=== PATIENT | female | born 1955 | race Caucasian/White ===

== ENCOUNTER 2024-09-18 14:18 | Inpatient (IN) | payer OTHER, SELFPAY ==
[2024-09-18] VITALS (41 sets, daily range): BP systolic 83–114; BP diastolic 52–75; BMI 21.4; BMI 20.9
--- NOTE | 2024-09-18 09:20 | ED.GENMED ---
History of Present Illness
General
Chief Complaint: Abdominal Symptoms
Source: patient and ambulance crew
Time Seen by Provider: 09/18/24 09:07
History of Present Illness
History of Present Illness:
69yoF with a history of prior CVA, hypertension, and hyperlipidemia presenting via EMS for evaluation of abdominal pain. Patient reports that she has not had a bowel movement in the past 3 days. She has taken MiraLAX and Metamucil without relief.
She is also having difficulty urinating and is only urinating in small amounts at a time. She endorses pain in her right lower quadrant/groin region. She also reports nausea and vomiting. She has been drinking but not eating much over the past
few days. She is also generally weak and fatigued. She denies any fevers, chest pain, shortness of breath. No previous abdominal surgeries. She has never had a colonoscopy before.
Phy Exam
Physical Exam
Physical Exam:
Chronically ill appearing, no acute distress noted
General Physical Exam
General Presentation: no apparent distress
General Skin: warm and dry
General Habitus: elderly
ENT Exam
ENT Exam: normocephalic
Cardiovascular Exam
Cardiovascular Exam: regular rate/rhythm and no murmur
Pulmonary Exam
Pulmonary Exam: no respiratory distress, no crackles, no wheezing and decreased breath sounds
Gastrointestinal Exam
Gastrointestinal Exam: soft, distended and other (Lower abdomen appears distended. Abdomen soft. +Tenderness in RLQ.)
Neurological Exam
Neurological Exam: alert
[place]avo Coma Scale
Eye Opening: Spontaneous
Verbal Response: Oriented
Motor Response: Obeys Commands
GCS Total Score: 15
Skin Exam
Skin Exam: normal color and warm/dry
Psychiatric Exam
Psychiatric Exam: normal mood/affect
Course
Orders/Labs/Results
Orders:
Orders
09/18/24 Breakfast
NPO
Allow oral meds: No
Allow clear liquids: No
09/18/24 09:18
Bladder Scan- Treatment ONCE
Iohexol [Omnipaque] See Protocol PO NOW STA
09/18/24 09:19
Electrocardiogram (*1) Urgent
Reason for Study: Fatigue / Weakness
EKG- Treatment ONCE
Urinalysis Reflex To Culture Urgent
CR Chest - 2 Views Urgent
Comment:
Reason For Exam: generalized weakness
09/18/24 09:25
D-Dimer Urgent
PTT Urgent
Comment: ADD
09/18/24 09:26
Complete Blood Count/With Diff Urgent
Comprehensive Metabolic Panel Urgent
Lipase Urgent
Magnesium Urgent
Manual Differential Urgent
Troponin I Urgent
09/18/24 09:30
0.9% Sodium Chloride 500 ml [Nss] 500 ml IV BOLUS
09/18/24 10:06
0.9% Sodium Chloride 500 ml [Nss] 500 ml IV BOLUS
Iohexol [Omnipaque] See Protocol PO NOW STA
Potassium Chloride [KCl] 20 meq PO NOW STA
09/18/24 10:07
CT Abd/pel (oral only)-DH Only Urgent
Comment:
Reason For Exam: Constipation, RLQ pain
09/18/24 10:27
Heparin 4,800 units IV NOW STA
09/18/24 10:[address] Non Medication Order As Directed
Physician Order: PTT 6 hours after initial start of Heparin infusion
09/18/24 10:30
Heparin 33891 Units/250 ml 25,000 units in 250 ml IV PER PROTOCOL
Weight to be used for heparin protocol in kilograms (kg):: 60.1
Protocol:: DVT/PE
PTT Goal Range to be used:: PTT 73 to 111 seconds
Order type:: Initial
INITIAL Infusion Dose (UNITS/KG/hr) & then follow protocol:: 18 units/kg/hr
Infusion Dose in UNITS/hr & then follow protocol (UNITS/hr):: 1,100
INFUSION RATE in mL/hr & then follow protocol (mL/hr):: 11
For DVT/PE algorithm, re-bolus for low PTT?: Yes
PTT less than or equal to 64 seconds:: Re-bolus 80 units/kg (max 10,000units). Increase by 200 units/hr
(+ 2mL/hr)
PTT 64.1 to 72.9 seconds:: Re-bolus 40 units/kg (max 5,000 units). Increase by 100 units/hr
(+ 1mL/hr)
PTT 73 to 111 seconds:: Target Range. No change in rate.
PTT 111.1 to 130.9 seconds:: Decrease rate by 100 units/hr (- 1 mL/hr)
PTT 131 to 199.9 seconds:: HOLD for 1 hr. Then decrease by 200 units/hr (- 2mL/hr)
PTT greater than or equal to 200 seconds:: HOLD for 2 hrs & Notify Provider. Then decrease by 200 units/hr
(- 2mL/hr)
Lab follow-up:: Each change, PTT q6h until 2 consecutive are therapeutic. Then
PTT daily.
09/18/24 10:31
Add On- LAB Urgent
Tests Added?: PTT
09/18/24 10:43
Heparin 4,800 units IV PRN PRN
09/18/24 10:45
Heparin 2,400 units IV PRN PRN
09/18/24 10:53
ABG [Arterial Blood Gas] Urgent
%Oxygen/Room Air: 2L
09/18/24 13:07
Gastrointestinal Tubes As Directed
Type: Kb cochran
To suction?: Yes
Type of suction: Low intermittent
Directions to clamp NG tube: for activity <30min
Irrigate tube?: Yes
Irrigant: Tap Water
Frequency: Q4H
Amount in mls: 30
Irrigation Directions: Irrigate Q4H and PRN
Comment: 16fr bk cochran
09/18/24 13:08
NG Tube [GI tube insertion- Treatment] ONCE
09/18/24 13:21
MetroNIDAZOLE 500 MG/100 ML [Flagyl 500 mg] 100 ml IV NOW
09/18/24 13:29
Type+Screen Stat
09/18/24 13:40
Admit/Transfer Patient As Directed
Co-Sign Provider:
Level of Care: Inpatient admission
Assign to:: ICU
Physician / Group: clifton
Diagnosis: incarcerated hernia
Reason for Hospitalization: incarcerated hernia
Expected length of stay greater than two midnights?: Yes
ELOS- Estimated Length of Stay in days: 2
I certify the patient meets the requirements for IP care: Yes
Code Status As Directed
Resuscitation Status: Full Code
PRN Pain Medication Management As Directed
May give lesser potent ordered pain med per pt: Yes
preference::
Protocol:: Medication orders for pain may be administered in a
manner that supports deferring to patient preference
when the pt is:
- Requesting an ordered lesser potent pain medication.
Least to most potent pain medications are defined
as: acetaminophen < NSAID < tramadol < opioids
(morphine, oxycodone, hydromorphone).
- Requesting a lesser dose of the same medication IF
ORDERED.
- Requesting a less intrusive route of administration
if both routes are prescribed by the provider (PO <
IV).
09/18/24 13:46
Sequential Compression Device [Pneumatic Compression Sleeves] As Directed
Type: Knee high
DX Deep Vein Thrombosis Video Routine
09/18/24 14:00
Protamine 27.5 mg Syringe [Syringe-Pump] 0 ml IV ONCE
09/18/24 14:03
Abdomen Xray - 1 View [CR Abdomen - 1 View] Urgent
Comment:
Reason For Exam: NG tube placement
09/18/24 14:13
Ciprofloxacin 400 mg/[id number] [Cipro 400 mg] 200 ml IV NOW
09/18/24 16:45
PTT Urgent
Abnormal Lab Results
09/18/24 09/18/24 09/18/24
09:26 10:53
MCH 32.6 H pg
(27.0-31.0)
Band Neutrophils 17 H %
(0-3)
Lymphocytes (Manual) 10 L %
(20-51)
D-Dimer 3.87 H ug/mlFEU
(0.00-0.50)
pH 7.63 H*
(7.35-7.45)
pCO2 44 H mmHg
(32-35)
pO2 73 L mmHg
(83-108)
HCO3 46.3 H* mmol/L
(21-28)
Sodium 131 L mmol/L
(135-145)
Potassium 3.3 L mmol/L
(3.5-5.1)
Chloride 76 L mmol/L
(98-107)
Carbon Dioxide 40 H mmol/L
(22-30)
BUN 87 H mg/dl
(7-17)
Creatinine 2.4 H mg/dL
(0.6-1.0)
Glucose 151 H mg/dl
(70-99)
Calcium 10.9 H mg/dl
(8.4-10.2)
Magnesium 2.5 H mg/dl
(1.6-2.3)
Troponin I 0.107 H* ng/ml
09/18/24 09:26
09/18/24 09:26
Vital Signs
Initial and Last Documented VS:
Initial Vital Signs
Temp Pulse Resp BP Pulse Ox
98 F 94 18 88/65 96
09/18/24 09:07 09/18/24 09:07 09/18/24 09:07 09/18/24 09:07 09/18/24 09:07
Last Documented Vital Signs
Temp Pulse Resp BP Pulse Ox
98 F 85 11 98/61 91
09/18/24 09:07 09/18/24 13:00 09/18/24 13:00 09/18/24 13:00 09/18/24 13:00
MDM/Problems Addressed
Differential Diagnosis Includes:
69yoF here with constipation, n/v, decreased PO intake, and generalized weakness x 3 days. BP 88/65 on arrival. Oxygen saturation noted to be in the 80s. She denies any dyspnea and no respiratory distress noted. Differential diagnosis includes but
is not limited to: constipation, SBO, BOBY, dehydration, malignancy
Initial ED plan: Check abdominal labs, magnesium, troponin/EKG, D-dimer, CXR, and CT abdomen. IV fluid bolus.
*EKG
Interpreted by ED Provider?: Yes
EKG Intrepretation Date: 09/18/24
Heart Rate: 85
Rate: normal
Rhythm: sinus, PAC's and PVC's
[place]: normal axis
Interval: long QT (504)
QRS Pattern: normal QRS
Ischemia: no ischemia
*Critical Care Note
Total Time (30-74mins, 75-104mins- exclusive of procedures): 45
Update Note
Update Note:
Multiple derangements noted on labs including creatinine of 2.4. No prior labs to compare to but she denies any history of CKD. Troponin elevated at 0.1. No ischemic changes on EKG. D-dimer elevated. Concern for possible PE given hypotension,
hypoxia, and elevated troponin. V/Q scan ordered although it will be delayed several hours. She was started empirically on heparin.
After heparin initiated, patient went for CT scan. CT scan shows small bowel obstruction 2/2 incarcerated inguinal or femoral hernia. Hernia unable to be reduced at bedside. General surgery consulted who evaluated patient at bedside. NG tube ordered
and patient to be taken to the OR. Heparin stopped and protamine ordered for reversal. Discussed dosing of protamine with pharmacy. Blood pressure improved with fluids. Patient transported to OR directly from emergency department.
ED Attending Note
-
Portions of this chart may have been created with voice recognition software.� Occasional wrong word or��sound alike� substitutions may have occurred due to the inherent limitations of voice recognition software.
Discharge Plan
Departure
Patient Disposition: Admit
Date of Disposition: 09/18/24
Time of Disposition: 13:01
Presentation/result/management discussed w/ accepting MD/DO: Hospitalist
Discharge Problem:
Small bowel obstruction, Acute kidney injury, Acute hypoxemic respiratory failure, Elevated troponin
Interventions
Interventions:
*Risk Screen - Suicide Last Done: 09/18/24 09:07
*General Assessment Last Done: 09/18/24 09:07
*Neglect/Abuse Screening Last Done: 09/18/24 09:07
ED- Fall Risk Assessment Last Done: 09/18/24 09:07
*ED COVID-19 Vaccine History Last Done: 09/18/24 09:07
CJ-Gbcyvg-Kjjfgqygbn Assessment Last Done: 09/18/24 09:07
[2024-09-18] MEDS: OMNIPAQUE 50 ML PO (09:30)
[2024-09-18] MEDS: NSS 500 IV ×2 (09:40→10:51)
[2024-09-18 10:01] LABS: Hematocrit 44.4 % (37.0-47.0); Hemoglobin 15.4 g/dL (12.0-16.0); Mean Corp Hgb Conc. 34.7 g/dL (33.0-37.0); Mean Corpuscular Hgb 32.6 pg (27.0-31.0); Mean Corpuscular Volume 94.1 fL (81.0-99.0); Mean Platelet Volume 9.8 fL (7.4-10.4); Platelet Count 243 10^3/uL (130-400); Red Blood Cell Count 4.72 10^6/uL (4.20-5.40); Red Cell Dist. Width 11.9 % (11.5-14.5); White Blood Cell Count 5.4 10^3/uL (4.8-10.8)
[2024-09-18 10:03] LABS: ALT (SGPT) 25 U/L (0-35); AST (SGOT) 32 U/L (14-36); Alkaline Phosphatase 54 U/L (38-126); Blood Urea Nitrogen 87 mg/dl (7-17); Calcium 10.9 mg/dl (8.4-10.2); Chloride 76 mmol/L (98-107); Estimated Creatinine Clearance 21 ml/min; Glucose 151 mg/dl (70-99); Lipase 52 U/L (23-300); Magnesium 2.5 mg/dl (1.6-2.3); Potassium 3.3 mmol/L (3.5-5.1); Sodium 131 mmol/L (135-145); Total Bilirubin 1.2 mg/dl (0.2-1.3); Total Protein 6.5 g/dl (6.3-8.2); eGFR 21.46
[2024-09-18 10:18] LABS: Troponin I 0.107 ng/ml
[2024-09-18 10:19] LABS: D-Dimer 3.87 ug/mlFEU (0.00-0.50)
[2024-09-18 10:29] LABS: Carbon Dioxide 40 mmol/L (22-30)
[2024-09-18] MEDS: HEPARIN 25000 UNITS/250 ML IV (10:49)
[2024-09-18] MEDS: HEPARIN 4800 UNITS IV (10:51)
[2024-09-18] MEDS: KCL 20 MEQ PO (10:52)
[2024-09-18 11:08] LABS: B.E. 22.3 mmol/L; O2 Saturation % 95.7 % (94-98); PCO2 44 mmHg (32-35); PO2 73 mmHg (83-108)
[2024-09-18 11:11] LABS: pH 7.63 (7.35-7.45)
[2024-09-18 11:12] LABS: HCO3 46.3 mmol/L (21-28)
[2024-09-18 11:15] LABS: APTT 23.8 Sec (23.4-35.0)
[2024-09-18 12:14] LABS: Absolute Neutrophils -Man Diff 4.4 10^3/uL (1.4-6.5); Band Neutrophils 17 % (0-3); Lymphocytes 10 % (20-51); Monocytes 7 % (2-9); Normal RBC Morphology Yes; Platelets Checked Yes; Segmented Neutrophils 66 % (42-75); Total Cells Counted 100
--- NOTE | 2024-09-18 13:25 | CON.GS ---
Addendum entered and electronically signed by Mehul Fletcher MD 09/18/24 14:00:
I saw and examined the patient independently.
The Piano Tuner's note was reviewed and I agree with the note, assessment and plan except where noted below.
Comment: This is a 69-year-old female with a history of CVA who presents to our hospital with a 3-day history of nausea vomiting and right lower quadrant abdominal pain after noticing a bulge. She states she has a known hernia but has not seen
anyone to have it repaired. She has had no prior abdominal surgeries and she has had no prior bowel obstructions in the past. On presentation she appears to be in BOBY, bilateral pneumonia and with elevated troponin leak concerning for demand
ischemia/NSTEMI. Heparin bolus/drip was started. CT scan was performed which demonstrated a bowel containing right inguinal hernia, on my read it appears to be a femoral hernia with significant upstream dilation.
Will plan for an emergent diagnostic laparoscopy, possible open femoral hernia repair with or without mesh, possible bowel resection.
N.p.o., IV fluids, IV antibiotics.
Stop heparin drip. Will discuss with pharmacy protamine dose to reverse the patient.
NG tube.
Risks/Benefits/Alternatives, expected postoperative course and possible complications (bleeding, infection, injury to surrounding structures, acute/chronic pain) discussed at length. Patient wishes to proceed with surgery. All questions answered.
Consent obtained.
I spent 75 minutes in total for the care of this patient today including direct patient care and counseling, reviewing labs, imaging, coordination of care, as well as documentation.
Original Note:
Consultation
-
Date/Time Consultation Requested: 09/18/29 1630
Requesting Provider: Gabby
Reason for Consultation: hernia
Medical History
-
Chief Complaint: n/v/rlq pain
History of Present Illness:
Ms Ojeda is a 69 yo female with a history of CVA, htn and hld who presents through the ED with nausea and vomiting and abdominal pain. She notes that 3 days ago, she noted a bulge in her right groin and since that time she has felt
progressively more pain and increasing nausea. She has been unable to pass stools for the last 3 days despite taking miralax and Metamucil. She has been unable to eat or drink much over the past days without becoming nauseated and vomiting. She
notes she has not been passing much urine. On exam, the abdomen is distended with right groin hernia present which is unable to be reduced at bedside and is tender to touch. Upon presentation to the ED she was noted to be hypoxic with hypotension.
Past Medical History
Past Medical History: CVA, HTN and Hypercholesterolemia
Past Surgical History: None
Social History
Tobacco: Former Smoker
Living: With Family (brother and mother)
Family History
Family History: Reviewed & Not Pertinent
Allergies / Home Medications
Allergy/AdvReac Type Severity Reaction Status Date / Time
Cephalosporins Allergy Unknown Verified 09/18/24 09:30
penicillin V Allergy Unknown Verified 09/18/24 09:30
Penicillins Allergy Unknown Verified 09/18/24 09:30
�Medication �Instructions �Recorded �Confirmed �Type
calcium polycarbophil 625 mg 625 mg PO DAILY 09/18/24 09/18/24 History
tablet (FiberCon)
cyanocobalamin (vitamin B-12) 500 500 mcg PO DAILY 09/18/24 09/18/24 History
mcg tablet
diltiazem HCl 240 mg capsule,24 240 mg PO DAILY 09/18/24 09/18/24 History
hr,extended release
docusate sodium 100 mg capsule 100 mg PO BID 09/18/24 09/18/24 History
(Colace)
lisinopril 10 mg tablet 10 mg PO DAILY 09/18/24 09/18/24 History
lovastatin 10 mg tablet 10 mg PO DAILY 09/18/24 09/18/24 History
polyethylene glycol 3350 17 gram 17 g PO DAILY 09/18/24 09/18/24 History
oral powder packet (Miralax)
Review of Systems
-
History Source: Patient
All other systems: Negative unless noted
A 10 point review of systems was completed, and was negative except as per HPI.
Physical Exam
Vital Signs
Temp Pulse Resp BP Pulse Ox
98 F 85 11 98/61 91
09/18/24 09:07 09/18/24 13:00 09/18/24 13:00 09/18/24 13:00 09/18/24 13:00
09/17/24 09/18/24 09/19/24
06:59 06:59 06:59
Actual Weight 60.1 kg
Body Mass Index (BMI) 21.4
Lab Results
09/18/24 09:26
09/18/24 09:26
WBC 5.4 10^3/uL (4.8-10.8) 09/18/24 09:26
Hgb 15.4 g/dL (12.0-16.0) 09/18/24 09:26
Hct 44.4 % (37.0-47.0) 09/18/24 09:26
Plt Count 243 10^3/uL (130-400) 09/18/24 09:26
Physical Exam
General: Negative Comfortable
HEENT: Normocephalic
Respiratory: Non Labored Respirations
GI: Soft, Tender (rlq) and Distended
Genito-urinary: Inguinal Hernia (right: not reducible)
Skin: Warm
Neuro: Awake, Alert and AO x 3
Psych: Calm
Data Reviewed
-
CT Scan: Image Personally Visualized and interpreted, Report Reviewed by me, Discussed with Physician, Discussed with Nurse and Discussed with Patient
Labs: Labs Reviewed by me, Discussed with Physician, Discussed with Nurse and Discussed with Patient
Old Records: Reviewed
Assessment / Plan
-
69 yo female with h/o htn and cva presenting through the ED with n/v/abdominal pain and bulging in the right groin for the past 3 days. She was found to be hypoxic with hypotension on admission with metabolic alkalosis and BOBY with electrolyte
abnormalities. Trop mildly elevated as is d-dimer in setting of ARF/hypovolemia. No leukocytosis present. BP has improved with IVF but remains low normal. CT imaging reviewed and consistent with incarcerated right groin hernia containing bowel which
is causing a high grade bowel obstruction. Significant bowel and gastric dilatation noted. CXR with possible bilateral pna. Heparin gtt was initiated in the ED.
Being admitted to hospitalist service.
Patient will require emergent operative intervention for hernia repair, she is agreeable to proceeding.
--Keep NPO for OR
--Place NGT for decompression
--Hold heparin gtt and nuc med scans in anticipation of OR. Will need protamine for reversal of heparin prior to surgery.
--Cipro/Flagyl preop
--Medical management as per hospitalist, discussed case with Dr. Palumbo at bedside
--- NOTE | 2024-09-18 13:47 | HPS.HSE ---
Family Physician
-
Family Physician: Laureen Rodriguez
Chief Complaint
-
abdominal pain
History of Present Illness
69-year-old female past medical history of CVA, hypertension, hyperlipidemia presenting with abdominal pain. She has not had a bowel movement 3 days despite taking MiraLAX and Metamucil. She is having difficulty urinating and only urinating in
small amounts at a time. She has pain in her right lower quadrant and groin. She also has nausea and multiple episodes of vomiting. Decreased oral intake over the past few days. She feels weak and fatigued. Denies fever, chest pain or shortness
of breath or cough. Denies sore throat or runny nose. No prior abdominal surgeries.
She denies any history of cardiac problems.
She denies smoking or alcohol use.
Medical History
Past Medical History
Past Medical History: Reports Other (CVA, hypertension, hyperlipidemia)
Past Surgical History: Reports None
Social History
Tobacco: Non-smoker
Alcohol: None
Drug: None
Family History
Family History: Not pertinent
Allergies / Home Medications
Allergies reflects when Allergies were last updated in [facility].
Home Medications with original date entered in [facility]
Allergy/Medication List:
Allergies
Allergy/AdvReac Type Severity Reaction Status Date / Time
Cephalosporins Allergy Unknown Verified 09/18/24 09:30
penicillin V Allergy Unknown Verified 09/18/24 09:30
Penicillins Allergy Unknown Verified 09/18/24 09:30
Home Medications
calcium polycarbophil 625 mg tablet (FiberCon) 625 mg PO DAILY 09/18/24
cyanocobalamin (vitamin B-12) 500 mcg tablet 500 mcg PO DAILY 09/18/24
diltiazem HCl 240 mg capsule,24 hr,extended release 240 mg PO DAILY 09/18/24
docusate sodium 100 mg capsule (Colace) 100 mg PO BID 09/18/24
lisinopril 10 mg tablet 10 mg PO DAILY 09/18/24
lovastatin 10 mg tablet 10 mg PO DAILY 09/18/24
polyethylene glycol 3350 17 gram oral powder packet (Miralax) 17 g PO DAILY 09/18/24
Review of Systems
-
History Source: Patient
A 12 point ROS was completed and negative except as noted: Yes
Constitutional: Reports No Symptoms
EENT: Reports No Symptoms
Respiratory: Reports No Symptoms
Cardiac: Reports No Symptoms
Abdomen/GI: Reports See HPI
: Reports No Symptoms
Musculoskeletal: Reports No Symptoms
Skin: Reports No Symptoms
Neurological: Reports No Symptoms
Endocrine: Reports No Symptoms
Hematologic/Lymphatic: Reports No Symptoms
Psych: Reports No Symptoms
Physical Exam
Vital Signs
Vital Signs
Temp Pulse Resp BP Pulse Ox
98 F 85 11 98/61 91
09/18/24 09:07 09/18/24 13:00 09/18/24 13:00 09/18/24 13:00 09/18/24 13:00
Physical Exam
General: Well Developed, Well Nourished and No Apparent Distress
HEENT: NormoCephalic, Moist mucous membranes and Atraumatic
Respiratory: Clear
Cardiac: S1/S2 and Regular Rhythm; No Murmur or Rub
GI: Soft, Normal Bowel Sounds, Tender and Distended (right groin hernia ); No Organomegaly
Rectal: Deferred by Provider
Musculoskeletal: No Clubbing, No Cyanosis and No Edema
Skin: No Rash
Neuro: Nonfocal/grossly intact
Laboratory Results
-
09/18/24 09:26
09/18/24 09:26
Laboratory Results
APTT Cancelled 09/18/24 10:30
pH 7.63 (7.35-7.45) H* 09/18/24 10:53
pCO2 44 mmHg (32-35) H 09/18/24 10:53
pO2 73 mmHg (83-108) L 09/18/24 10:53
HCO3 46.3 mmol/L (21-28) H* 09/18/24 10:53
Total Bilirubin 1.2 mg/dl (0.2-1.3) 09/18/24 09:26
AST 32 U/L (14-36) 09/18/24 09:26
ALT 25 U/L (0-35) 09/18/24 09:26
Alkaline Phosphatase 54 U/L (38-126) 09/18/24 09:26
Troponin I 0.107 ng/ml H* 09/18/24 09:26
Lipase 52 U/L (23-300) 09/18/24 09:26
Data Reviewed
-
Lab Data: Labs Reviewed by me
Old Records: Reviewed
Impression/Plan
-
IMPRESSION:
PLAN:
# Incarcerated right groin hernia with high-grade small bowel obstruction
-CT abdomen pelvis shows incarcerated right groin hernia continue loop of small bowel with associated high-grade small intestinal obstruction, transition point
-N.p.o.
-IV fluids
-NG tube
-Levaquin/Flagyl
-surgery consulted and plan to take to operating room
# Hypoxemic respiratory insufficiency secondary to bilateral lower lobe pneumonia
-D-dimer of 3.87
-ABG shows pH of 7.63, bicarb of 46, pCO2 of 44, pO2 73
-Check COVID and influenza
-VQ scan ordered but now canceled
-Levaquin/Flagyl to cover intra-abdominal infection since allergic to penicillins
# Nonischemic myocardial injury in the setting of bowel obstruction/BOBY vs less likely NSTEMI
-EKG shows sinus rhythm with frequent PVCs, PACs
-No chest pain at any time
-Troponin of 0.1
-Trend troponins
-Heparin initially given by ER but patient to be taken to OR so protamine being given to reverse
# QTc prolongation secondary to hypokalemia
-QT of 504
# Hypokalemia
-monitor for now given BOBY
# Acute kidney injury versus CKD
-No prior BMP available
-Creatinine of 2.4
-Monitor with IV fluids
-Check I's and O's
-Hold lisinopril
# Hypermagnesemia secondary to BOBY/CKD
-Monitor with IV fluids
# Acute metabolic alkalosis likely secondary to vomiting
-Monitor with IV fluids
History of CVA
-Hold statin
Essential hypertension
-Hold diltiazem
-Hold lisinopril
Constipation history
-Hold stool softeners
Full code
DVT prophylaxis�SCDs
NPO
--- NOTE | 2024-09-18 14:01 | W.SUR.PREOP ---
Pre-Operative Surgical Note
-
I have examined this patient prior to the performance of the scheduled procedure.
The patient's condition is unchanged from the time of the current History and
Physical and the patient is able to undergo the scheduled procedure.
[2024-09-18] MEDS: PROTAMINE 2.75 MG IV (14:14)
--- NOTE | 2024-09-18 17:57 | W.IMMPOSTOP ---
Surgical Immed Post Op Note
-
Primary Surgeon: Mehlu Fletcher MD
Assisting Surgeon: None
Pre-op Diagnosis: Incarcerated right femoral hernia
Post-op Diagnosis: Same
Procedure Performed:
1. Laparoscopic femoral hernia repair (primary)
2. Open small bowel resection and anastomosis
Anesthesia Type: General
Specimen / Cultures: Small bowel
Estimated Blood Loss: 7 cc
Complications: None
Operative Findings: Very tight right femoral hernia containing nonviable bowel. The hernia defect was opened slightly superiorly to allow reduction of the hernia contents followed by inversion of the medial umbilical ligament fat pad which was
Endoloop. The small bowel was extracted through a periumbilical incision and a [id number], functional end-to-end stapled small bowel resection with anastomosis was performed using the Jose D technique. The staple line was oversewn with 3-0
silk pops and the mesenteric defect was closed prior to returning the bowel to the abdomen.
POST OP PLAN:
Imaging: None
Labs: Routine AM
Diet: N.p.o., would wait for return of bowel function before resuming diet.
Analgesia: Scheduled Tylenol, as needed Toradol and Dilaudid
Neuro/vascular checks: q4h
AC/AP: Hold Therapeutic AC, Ok for DVT PPx
Activity: Ad Mindy
Wound/Incisions/Drains: Routine
Abx: Would treat empirically for aspiration pneumonia
Dispo: Anticipate ICU level care depending on clinical course post-extubation in PACU.
[2024-09-18 18:03] LABS: COVID-19 Antigen Negative (Negative)
[2024-09-18 18:13] LABS: Troponin I 0.059 ng/ml
[2024-09-18] MEDS: NSS 1000 IV (18:24)
[2024-09-18 18:27] LABS: APTT 23.1 Sec (23.4-35.0)
[2024-09-18] MEDS: FLAGYL 500 MG 100 IV (18:56)
--- NOTE | 2024-09-18 19:30 | PTCARENOTE ---
Resumed care of pt this evening. Received pt drowsy but arousable to verbal and tactile stimuli. Pt is A&Ox3, can move all 4 extremities and can make needs known. Pt is NSR on tele monitor w/ PVCs, has no edema, and weak but palpable pedal pulses.
Pt is on 4L of O2 satting at 92% pulse ox. On auscultation pt has diminished lung sounds TO and has shallow respirations. Pt is NPO and has a right nare NG tube connected to low intermittent suctioning. Drainage from NG tube is brown in color. Pt's
abdomen is round, distended, tender, tender to palp, and has hypoactive BS. Saldaña cath in place draining yellow colored urine. Pt's midline abdominal dressing has a scant amount of old drainage but is otherwise C/D/I. Pt's rt and left lower
abdominal surgical stab sites are closed w/ surgical glue are approximated and C/D/I. Pt c/o 3/10 abdominal pain but states pain is manageable. Pt refuses pain medication at this time.
[2024-09-18 20:11] LABS: Urine Albumin Negative (Neg - Trace); Urine Bilirubin Negative (Negative); Urine Character Clear (Clear); Urine Color Straw; Urine Glucose Negative (Negative); Urine Ketone Trace (Negative); Urine Leukocyte Negative (Negative); Urine Nitrite Negative (Negative); Urine Occult Blood Negative (Negative); Urine Urobilinogen Negative (Neg - 1+)
[2024-09-18] MEDS: LEVAQUIN 150 IV (20:35)
[2024-09-19] VITALS (51 sets, daily range): BP systolic 84–124; BP diastolic 51–82; BMI 20.9
--- NOTE | 2024-09-19 01:21 | PTCARENOTE ---
Upon reassessment pt is resting comfortably. Pt continues to tolerate 4L of O2 satting at 96% pulse ox.
[2024-09-19] MEDS: FLAGYL 500 MG 100 IV ×3 (02:45→18:01)
[2024-09-19] MEDS: NSS 1000 IV (03:52)
[2024-09-19 05:16] LABS: Hematocrit 35.6 % (37.0-47.0); Hemoglobin 12.6 g/dL (12.0-16.0); Mean Corp Hgb Conc. 35.4 g/dL (33.0-37.0); Mean Corpuscular Hgb 33.7 pg (27.0-31.0); Mean Corpuscular Volume 95.2 fL (81.0-99.0); Mean Platelet Volume 9.4 fL (7.4-10.4); Platelet Count 181 10^3/uL (130-400); Red Blood Cell Count 3.74 10^6/uL (4.20-5.40); Red Cell Dist. Width 11.9 % (11.5-14.5); White Blood Cell Count 7.1 10^3/uL (4.8-10.8)
[2024-09-19 05:32] LABS: ALT (SGPT) 18 U/L (0-35); AST (SGOT) 24 U/L (14-36); Albumin 2.5 g/dl (3.5-5.0); Alkaline Phosphatase 39 U/L (38-126); Blood Urea Nitrogen 57 mg/dl (7-17); Calcium 8.4 mg/dl (8.4-10.2); Carbon Dioxide 37 mmol/L (22-30); Chloride 89 mmol/L (98-107); Estimated Creatinine Clearance 50 ml/min; Glucose 128 mg/dl (70-99); Potassium 2.8 mmol/L (3.5-5.1); Sodium 135 mmol/L (135-145); Total Bilirubin 0.4 mg/dl (0.2-1.3); Total Protein 4.7 g/dl (6.3-8.2); eGFR > 60.00
[2024-09-19] MEDS: KCL 270 MEQ IV ×2 (06:14→12:25)
--- NOTE | 2024-09-19 06:34 | PTCARENOTE ---
K this morning was 2.8. 40 meq KCL via IV initiated by this RN.
--- NOTE | 2024-09-19 08:33 | CON.INTV ---
Consultation
Consultation Request
Date/Time Consultation Requested: 09/19/20241149
Date/Time Consultation Performed: 09/19/2024830
Requesting Provider: Dr. Kilpatrick
Performing Provider: Dr. Peña
Reason for Consultation: Hypotension; postop with femoral hernia repair
Medical History
-
Chief Complaint: Abdominal pain
History of Present Illness:
69-year-old female with a past medical history of hypertension, CVA and hyperlipidemia who presents with abdominal pain. She has not had a bowel movement in 3 days and has been taking MiraLAX and Metamucil. Also having difficulty urinating. Has
pain in her right lower quadrant lower abdomen and groin. Has been vomiting few times with reduced oral intake over the last few days. Endorses weakness and fatigue. Initially in the ER she was afebrile to 98 �F, pulse rate 94, breathing at 18
breaths/min, BP 88/65 and saturating 96% on room air. Initial labs showed WBC WNL at 5.4, Hb 15.4, D-dimer 3.87, potassium 3.3, sodium 131, serum bicarbonate level 40, blood gas pH 7.63, pCO2 44, calcium 10.9, initial troponin 0.107, urinalysis
with trace ketones and COVID antigen negative. CXR showed a patchy opacity within the right lower lobe suggestive of pneumonia versus subsegmental atelectasis. Also a hazy left lower lobe opacity. CT abdomen/pelvis with oral contrast showed an
incarcerated right groin hernia containing a loop of small bowel with a high-grade small intestinal obstruction. Also patchy airspace consolidation seen in the lung bases. In the ER she was initially started on a heparin drip and given total of 1
L NS 0.9% and potassium. She was later reversed with protamine and then brought to the OR after general surgery was consulted. She underwent laparoscopic femoral hernia repair with open small bowel resection and anastomosis. EBL was minimal at 7
cc with no immediate complications. She was then transferred to the ICU postoperatively for further care and jail officer services consulted for additional management/recommendations.
Patient was seen and evaluated this morning. Sitting in chair no acute distress. Currently heart rate 81, BP 86 and 55 and saturating 97% on 6L/min. NGT to LIWS with ~600cc since overnight of brown fluid. She currently denies abdominal pain,
nausea, vomiting, fevers or chills.
PMHx: CVA, hypertension, hyperlipidemia
PSHx: Non-contributory
Past Medical History
Past Medical History: Other (Above as per HPI)
Past Surgical History: Other (Above as per HPI)
Social History
Tobacco: Non-smoker
Alcohol: None
Drug: None
Family History
Family History: Reviewed & Not Pertinent
Allergies / Home Medications
Allergies
Allergy/AdvReac Type Severity Reaction Status Date / Time
Cephalosporins Allergy Unknown Verified 09/18/24 17:13
penicillin V Allergy Unknown Verified 09/18/24 17:13
Penicillins Allergy Unknown Verified 09/18/24 17:13
Home Medications
�Medication �Instructions �Recorded �Confirmed �Last Taken �Type
calcium polycarbophil 625 mg 625 mg PO DAILY 09/18/24 09/18/24 Unknown History
tablet (FiberCon)
cyanocobalamin (vitamin B-12) 500 500 mcg PO DAILY 09/18/24 09/18/24 Unknown History
mcg tablet
diltiazem HCl 240 mg capsule,24 240 mg PO DAILY 09/18/24 09/18/24 Unknown History
hr,extended release
docusate sodium 100 mg capsule 100 mg PO BID 09/18/24 09/18/24 Unknown History
(Colace)
lisinopril 10 mg tablet 10 mg PO DAILY 09/18/24 09/18/24 Unknown History
lovastatin 10 mg tablet 10 mg PO DAILY 09/18/24 09/18/24 Unknown History
polyethylene glycol 3350 17 gram 17 g PO DAILY 09/18/24 09/18/24 Unknown History
oral powder packet (Miralax)
Review of Systems
-
History Source: Patient
All other systems: Negative unless noted
Vitals / Labs / Diagnostic Testing
Vital Signs
Temp Pulse Resp BP Pulse Ox
98.1 F 76 16 86/55 91
09/19/24 08:05 09/19/24 09:30 09/19/24 09:30 09/19/24 09:30 09/19/24 09:00
Lab Data
09/19/24 04:33
Laboratory Results
09/18/24 09/18/24 09/18/24
09:25 10:30 10:53
APTT 23.8 Cancelled
pH 7.63 H*
pCO2 44 H
pO2 73 L
HCO3 46.3 H*
O2 Delivery Level
09/18/24 09/18/24
17:41 18:10
APTT Cancelled 23.1 L
pH
pCO2
pO2
HCO3
O2 Delivery Level
Microbiology
09/18/24 19:59 Nasal Swab Influenza Types A & B (RICARDO) - Final
Negative for Influenza A & B, NAAT
Negative results must be combined with clinical observations
and patient history.
Nucleic Acid Amplification test (NAAT)performed on the
[employer] platform.
Diagnostic Testing:
Physical Exam
-
HEENT: Normocephalic and Anicteric
Cardiovascular: S1/S2 and Peripheral Edema (negative)
Respiratory: Wheeze (negative), Rales (negative), Rhonchi (negative), Non-Labored Respirations and Other (Diminished breath sounds bilaterally)
GI: Soft, Non Distended, Non Tender and Other (Hypoactive bowel sounds)
Neurology: AO x 3 and Tremors (negative)
Skin: Warm and Dry
General: Respiratory Distress (negative), Comfortable, Chills (negative) and Sweats (negative)
Assessment
-
Assessment: 69-year-old female with a past medical history of hypertension, CVA and hyperlipidemia who presents with abdominal pain. She has not had a bowel movement in 3 days and has been taking MiraLAX and Metamucil. Also having difficulty
urinating. Has pain in her right lower quadrant lower abdomen and groin. Has been vomiting few times with reduced oral intake over the last few days. Endorses weakness and fatigue. Initially in the ER she was afebrile to 98 �F, pulse rate 94,
breathing at 18 breaths/min, BP 88/65 and saturating 96% on room air. Initial labs showed WBC WNL at 5.4, Hb 15.4, D-dimer 3.87, potassium 3.3, sodium 131, serum bicarbonate level 40, blood gas pH 7.63, pCO2 44, calcium 10.9, initial troponin
0.107, urinalysis with trace ketones and COVID antigen negative. CXR showed a patchy opacity within the right lower lobe suggestive of pneumonia versus subsegmental atelectasis. Also a hazy left lower lobe opacity. CT abdomen/pelvis with oral
contrast showed an incarcerated right groin hernia containing a loop of small bowel with a high-grade small intestinal obstruction. Also patchy airspace consolidation seen in the lung bases. In the ER she was initially started on a heparin drip
and given total of 1 L NS 0.9% and potassium. She was later reversed with protamine and then brought to the OR after general surgery was consulted. She underwent laparoscopic femoral hernia repair with open small bowel resection and anastomosis.
EBL was minimal at 7 cc with no immediate complications. She was then transferred to the ICU postoperatively for further care and jail officer services consulted for additional management/recommendations.
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
Impression:
#Incarcerated right femoral hernia s/p laparoscopic femoral hernia repair with open small bowel resection and anastomosis (POD #1)
#Acute respiratory failure with hypoxia due to bilateral lower lobe pneumonia
#Hypotension likely due to sepsis from above
#Elevated troponin
#Bandemia likely reactive due to surgery above
#Metabolic alkalosis with appropriate respiratory compensation
#Hypokalemia
#BOBY � markedly improved
#Hypoalbuminemia
Plan:
- Postoperative management as per general surgery
- Intraoperative findings included a very tight right femoral hernia containing nonviable bowel
- Follow-up pathology from the OR
- Currently on NS 0.9% @ 100cc/hr
- Defer IVF management to surgery
- Currently on levaquin/flagyl
- No cultures were sent; if patient spikes a fever then would check blood Cx at that time and re-check CXR with sputum Cx if she can produce a sample and UA/UCx
- Trend WBC; monitor for fevers
- Pain control
- Trend sCr, renally dose all meds/Abx
- Replete electrolytes with K>4, Mg>2
- trend sHCO3 level; trend blood gas; consider diamox if metabolic alkalosis persists, which was likely due to contraction alkalosis in setting of reduce PO intake for several days
- Titrate supplemental O2 to maintain SpO2 >90-94%
- Continue aspiration precautions
- Maintain MAP>65
- will give IV albumin to reach goal albumin level >3g/dL to help her hypotension
- Maintain euglycemia with goal BG 140-180
- Trend H/H and transfuse if needed to keep Hb>7g/dL; keep plt>20k, unless there is concern for bleeding then keep plt>50k
- prn nebulized bronchodilators - not currently bronchospastic
- Incentive spirometer encouraged 10x per hour for at least 4 hrs a day
- DVT ppx - start HSQ tomorrow
Data:
CT A/P with PO contrast 09/18/2024:
1. Incarcerated right groin hernia, containing a loop of small bowel, with associated high-grade small intestinal obstruction. Transition point is best seen on coronal images 20-22. Small bowel distal to the hernia is decompressed.
2. Right groin hernia may be an inguinal hernia or femoral hernia.
3. No evidence of pneumatosis intestinalis or extraluminal air.
4. Bilateral nephrolithiasis without hydronephrosis.
CXR 09/18/2024:
1. Patchy opacity within the right lower lobe, most suggestive of pneumonia or subsegmental atelectasis.
2. Hazy left lower lobe opacity, with partial obscuration of left hemidiaphragm. Suggestive of left lower lobe pneumonia or subsegmental atelectasis.
Total time spent today was 78 minutes for this encounter. Time includes reviewing laboratory test/imaging results, reviewing pertinent medical records, obtaining and reviewing medical history, performing an appropriate exam, ordering medications,
tests and procedures. Time also includes documentation of this encounter, coordinating patient care and communicating with other healthcare professionals. Total time does not include separately billed tests performed on this date of service.
--- NOTE | 2024-09-19 08:56 | W.PN.GS2 ---
Today's Communication / Plan
-
N.p.o., continue IV fluids
Continue NG tube to low intermittent wall suction
Check CBC, BMP, mag, Phos daily, replete electrolytes as needed.
Okay to DC Saldaña.
No activity restrictions from a surgery perspective, please get patient out of bed into the chair and ambulate as much as possible. Okay to clamp NG tube.
PT OT
Assessment / Plan
-
This is a 69-year-old female who presented to our hospital with an incarcerated femoral hernia status post laparoscopic primary repair and open small bowel resection and anastomosis.
N.p.o., continue IV fluids. Would consider starting TPN on 09/21/2024 if no significant return of bowel function.
Continue NG tube to low intermittent wall suction
Check CBC, BMP, mag, Phos daily, replete electrolytes as needed.
Okay to DC Saldaña.
No activity restrictions from a surgery perspective, please get patient out of bed into the chair and ambulate as much as possible. Okay to clamp NG tube.
PT OT
General Surgery will continue to follow.
Time Spent
Total Time Spent with Patient (in minutes): 25
Subjective Data
-
Date of Service: September 19, 2024
Interval Events:
No acute events overnight. Slept well. Pain Controlled. Denies Nausea/Vomiting, -bowel function. Overall feels much better
Objective Data
-
Intake and Output
09/18/24 09/19/24/02/08
06:59 06:59 06:59
Intake Total 1847.5 / 1847.5
Output Total 1675 / 1675
Balance 172.5 / 172.5
Intake:
IV fluids (Total) 1500 / 1500
Normosal 1500 / 1500
IV piggybacks 317.5 / 317.5
Amount instilled into GI Tube ( 30 / 30
Total)
[place] Sump 30
Output:
Gastrointestinal tube output ( 300 / 300
Total)
[place] Sump 300 / 300
Urine, Saldaña 1375 / 1375
Vital Signs
Temp Pulse Resp BP Pulse Ox
98.1 F 79 14 89/55 92
09/19/24 08:05 09/19/24 08:00 09/19/24 08:00 09/19/24 08:00 09/19/24 08:00
Lab Results
09/19/24 04:33
Calcium 8.4 mg/dl (8.4-10.2) D 09/19/24 04:33
Magnesium 2.5 mg/dl (1.6-2.3) H 09/18/24 09:26
Total Bilirubin 0.4 mg/dl (0.2-1.3) 09/19/24 04:33
AST 24 U/L (14-36) 09/19/24 04:33
ALT 18 U/L (0-35) 09/19/24 04:33
Alkaline Phosphatase 39 U/L (38-126) 09/19/24 04:33
Total Protein 4.7 g/dl (6.3-8.2) L D 09/19/24 04:33
Albumin 2.5 g/dl (3.5-5.0) L D 09/19/24 04:33
Physical Exam
-
GENERAL/NEURO: Awake, Alert, no distress
CHEST: Unlabored breathing on RA
ABDOMEN: Soft, Non-Tender, still mildly distended but significantly improved compared to preoperative exam. NG tube in place with bilious output. Incision dressing is clean dry with minimal strikethrough.
--- NOTE | 2024-09-19 09:17 | CM ---
Addendum entered by Uday Pringle 09/19/24 09:22:
AD information with a copy of AD provided.
Original Note:
CM following re: discharge planning.
Reviewed pt's chart, met with pt.
Pt is a 69 year old female admitted with primary dx of incarcerated femoral hernia POD#1 status post laparoscopic primary repair and open small bowel resection and anastomosis. General surgery following, continue supportive care
Pt reports she lives with mother and a brother in a 2SH, 1 step to enter, has 3 supportive brothers. 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 No DME, VN or SNF history.
PCP: Laureen Rodriguez
Pharmacy: [facility]
D.C plan: home with anticipated no needs. Family to transport at discharge.
CM will follow with discharge plan updates as hospitalization progresses
[2024-09-19 09:28] LABS: Absolute Neutrophils -Man Diff 6.1 10^3/uL (1.4-6.5); Band Neutrophils 36 % (0-3); Lymphocytes 6 % (20-51); Metamyelocytes 1 % (-); Monocytes 7 % (2-9); Normal RBC Morphology Yes; Platelets Checked Yes; Segmented Neutrophils 50 % (42-75)
[2024-09-19 09:29] LABS: Total Cells Counted 100
--- NOTE | 2024-09-19 09:30 | PTCARENOTE ---
Assumed care of patient at 0700. Patient alert and oriented. NSR on tele monitor. Pulse ox fluctuating between 86-88%. O2 increased to 6L nc. Lung sounds shallow and diminished; coarse in b/l base. Abdomen soft/slightly tender. Hypo BS. Patient
denies flatus. Right nare NGT to low intermittent suction. Brown output. Midline incision dressing with small old drainage. Lap sites closed with surgical adhesive. Castillo in place with yellow urine output. Surgeon at bedside. Advised RN to pull
castillo catheter and increase activity level. Patient assisted oob x1 to chair at 0900. Incentive spirometer given, teaching provided. Patient demonstrating understanding.
[2024-09-19 10:48] LABS: Phosphorus 3.1 mg/dl (2.5-4.5)
[2024-09-19] MEDS: FLEXBUMIN 100 IV ×2 (12:17→15:58)
--- NOTE | 2024-09-19 12:41 | PTCARENOTE ---
Addendum entered by Fátima Vieira RN 09/19/24 13:11:
Assisted to bedside commode to void- voided 50 cc's of liliane urine.
Original Note:
Patient reassessed. No changes. Vitals stable. Albumin infusing as ordered. Remains oob in chair since 0900.
--- NOTE | 2024-09-19 14:46 | W.PN.HOSP.TC ---
Today's Communication/Plan
-
monitor vitals
see plan
albumin
NGT; NPO
cw abx
pain control
Assessment / Plan
Assessment / Plan
General: Well Developed, Well Nourished and No Apparent Distress
HEENT: NormoCephalic, +ngt
Respiratory: Clear
Cardiac: S1/S2 and Regular Rhythm; No Murmur or Rub
GI: soft
Musculoskeletal: no edema
Neuro: Nonfocal/grossly intact
Incarcerated right groin hernia with high-grade small bowel obstruction
-CT abdomen pelvis shows incarcerated right groin hernia continue loop of small bowel with associated high-grade small intestinal obstruction, transition point
-N.p.o.
-IV fluids
-NG tube
-Levaquin/Flagyl
Surgery following,status post laparoscopic primary repair and open small bowel resection and anastomosis
hypovolemic shock likely 2/2 incarcerated hernia. Continue to monitor.
# Hypoxemic respiratory insufficiency secondary to bilateral lower lobe pneumonia
-Levaquin/Flagyl to cover intra-abdominal infection since allergic to penicillins
continue to monitor; wean o2 as tolerated
denies chest pain
# Nonischemic myocardial injury in the setting of bowel obstruction/BOBY
-EKG shows sinus rhythm with frequent PVCs, PACs
-No chest pain at any time
# QTc prolongation secondary to hypokalemia
recheck
# Hypokalemia
-monitor for now given BOBY
# Acute kidney injury
-Creatinine of 2.4; now improved
-Monitor with IV fluids
-Hold lisinopril
# Acute metabolic alkalosis likely secondary to vomiting
-Monitor with IV fluids
History of CVA
-Hold statin
Essential hypertension
-Hold diltiazem
-Hold lisinopril
Constipation history
-Hold stool softeners
Full code
DVT prophylaxis�SCDs, start pharm ppx when okay with surgery
I spent a total of 52 minutes with the patient or on the floor. More than 50% of this time involved counseling and coordination of care.
Anticipated Discharge: > 48 hours
Subjective/Interval History
-
Date of Service: September 19, 2024
has NGT
Objective Data
-
Labs:
Laboratory Results
09/19/24 09/19/24
04:33 11:00
WBC 7.1
Hgb 12.6
Hct 35.6 L
Plt Count 181 D
Sodium 135 Pending
Potassium 2.8 L Pending
Chloride 89 L Pending
Carbon Dioxide 37 H Pending
BUN 57 H Pending
Creatinine 1.0 Pending
Glucose 128 H Pending
Calcium 8.4 D Pending
Total Bilirubin 0.4
AST 24
ALT 18
Alkaline Phosphatase 39
Vital Signs:
Vital Signs
Temp Pulse Resp BP Pulse Ox
98.2 F 71 20 89/56 94
09/19/24 11:58 09/19/24 14:35 09/19/24 14:35 09/19/24 14:35 09/19/24 14:35
I&O
09/18/24 09/19/24 09/20/24
06:59 06:59 06:59
Intake Total 1847.5 / 1947.5 902.5 / 902.5
Output Total 1675 / 1675 250 / 250
Balance 172.5 / 272.5 652.5 / 652.5
--- NOTE | 2024-09-19 15:14 | PTCARENOTE ---
Minimal urine output throughout shift. Bladder scanned for 354 cc's. Assisted to bedside commode and encouraged to try and void.
[2024-09-19 15:30] LABS: Magnesium 2.2 mg/dl (1.6-2.3)
[2024-09-19] MEDS: NSS (PRESERVATIVE FREE) 10 ML IV (15:58)
[2024-09-19] MEDS: PROTONIX IV 40 MG IV (15:58)
--- NOTE | 2024-09-19 17:34 | OR.RPT ---
Operative Report
Operative Report
Patient Name: Lizy Ojeda
: 1955
Date of Operation: 09/18/2024
Preoperative Diagnosis: SBO, Incarcerated right femoral hernia
Postoperative Diagnosis: Same
Procedure(s):
1. Laparoscopic femoral hernia repair (primary)
2. Open small bowel resection and anastomosis
Surgeon(s):
Dr. Fletcher
Associate Director Finance(s):
FRANSICO Green
Anesthesia: General
Estimated Blood Loss: 7 cc
Urine Output: See anesthesia records
Drains/Lines/Implants: None
Specimens:
1. Small Bowel
HPI/Surgical Indications:
This is a 69-year-old female with a history of a CVA who presents with a 3-day history of abdominal pain nausea vomiting and a right lower quadrant bulge. She presented to our ED and extremis with elevated troponin, BOBY and hypoxia. CT scan of the
chest abdomen pelvis revealed bilateral pneumonia (likely aspiration) and incarcerated right inguinal hernia likely femoral. Risks/Benefits/Alternatives were discussed at length, and the patient agreed to proceed with surgery. I also discussed her
case with her brother Jl who consented over the phone to the procedure.
Operative Findings: Very tight right femoral hernia containing nonviable bowel. The hernia defect was opened slightly superiorly to allow reduction of the hernia contents followed by inversion of the medial umbilical ligament fat pad which was
Endoloop. The small bowel was extracted through a periumbilical incision and a [id number], functional end-to-end stapled small bowel resection with anastomosis was performed using the Jose D technique. The staple line was oversewn with 3-0
silk pops and the mesenteric defect was closed prior to returning the bowel to the abdomen.
Procedure Description:
The patient was brought to the Operating Room and placed in the supine position with the arms out. IV antibiotics were infused and Venodyne stockings placed. Following uneventful induction of general endotracheal anesthesia, a Saldaña catheter was
placed. Prior to induction, an NG tube had been placed in the emergency department which was suctioning out brown bile. The abdomen was prepped and draped in the usual sterile fashion. A standard timeout was performed. The abdomen was entered
using a Vaibhav technique with a 12 mm trochar just below the umbilicus. Pneumoperitoneum to 15 mmHg pressure was obtained without difficulty and we confirmed that no injury had occurred during our entry. We then placed two 5 mm trocars in the right
upper and left upper quadrants. The patient was placed in the Trendelenburg position and the bowel was then run. The right femoral defect was readily identified with dilated loop of bowel entering in a decompressed loop of bowel exiting. Even
with external pressure and and gentle laparoscopic traction the bowel would not be reduced. Medially was difficult to free up this tissue due to the orientation of the dilated bowel so I elected to open up the ligament and tissue superiorly using
laparoscopic bipolar energy device and sharp to dissection. While trying to reduce the bowel there was a small full-thickness enterotomy that was made with little to no spillage from the bowel itself. This was clamped using a locking laparoscopic
grasper the bowel was then gently freed and delivered into our view. There was a significant section of nonviable ischemic bowel near the enterotomy which was inherent to our dissection and unavoidable. The abdomen was then desufflated and our 12
mm port was removed and the port site was extended about 5 cm. A Fabien wound retractor was placed and the bowel was extracorporealized. Blue towels were placed around the wound retractor to create our dirty field. A specimen container was
brought into the field and the bowel was emptied into this with almost 1 L of effluent that was drained in addition to the almost 2 L of bile suctioned from the NG tube. Satisfied that the bowel had been appropriately decompressed we identified to
healthy areas of small intestine and a [id number], functional end-to-end stapled small bowel resection with anastomosis was performed using a Jose D technique with 2 fires of a 80 purple KIERA stapler. Care was taken to ensure the staple lines
were offset. The small bowel mesentery was ligated using LigaSure and passed off the field. The common enterotomy staple line was then oversewn with 3-0 silk sutures and 2 crotch stitches were placed to offload tension in this area. The
mesenteric defect was also closed. Satisfied, the bowel was returned to the abdomen and pneumoperitoneum was reestablished. We confirmed that her bowel was in its appropriate orientation. Femoral defect was then everted and then ligated with 0
PDS Endoloop. Given the degree of contamination, we elected not to pursue a mesh repair at this time. The abdomen was desufflated and our ports were removed. The midline opening was then closed with [address] 2 needles, anchored at
each apex and run to the middle and tied together. The midline incision was closed with interrupted 3-0 Vicryl sutures while the two 5 mm port sites were closed with 4-0 Monocryl and glue. Overall, the patient tolerated the procedure well and was
taken to the PACU postoperatively after extubation with the intention to admit the patient to the ICU for further hemodynamic monitoring
I was the attending physician and performed the procedure with assistance of the PA above. The assistance of FRANSICO Green was required due to the complexity of the procedure. During the procedure Nicole assisted with retraction, resection, and
closure of the wound. I was present for all portions of the case, excluding skin closure.
Mehul Fletcher MD
--- NOTE | 2024-09-19 18:33 | PTCARENOTE ---
Patient oob in chair from 0900 to 1830. Lung sounds and pulse ox improved throughout the shift. O2 weaned to 2L nc. Pulse ox 97%.
[2024-09-19] MEDS: NSS with KCL 40 MEQ 1000 IV (19:41)
[2024-09-19] MEDS: LEVAQUIN 150 IV (19:41)
--- NOTE | 2024-09-19 20:00 | PTCARENOTE ---
Rec'd pt resting in bed, family at bedside, denies pain, cooperative, SR , BP stable, weak distal pulses, skin warm/dry, O2 2 liters nc, lungs dec throughout, sat 95, enc to use IS- reaches 500ml, hypo bowel sounds, no flatus, abd soft, no n/v, R
nares [place] to low intermittent suction draining brown liquid, irrigated q4h w/ 30 h20, abd incis intact, HNV yet this shift
[2024-09-19] MEDS: NSS IV (20:10)
[2024-09-19 22:03] LABS: Blood Urea Nitrogen 45 mg/dl (7-17); Calcium 8.5 mg/dl (8.4-10.2); Carbon Dioxide 30 mmol/L (22-30); Chloride 101 mmol/L (98-107); Estimated Creatinine Clearance 62 ml/min; Glucose 108 mg/dl (70-99); Potassium 3.9 mmol/L (3.5-5.1); Sodium 139 mmol/L (135-145); eGFR > 60.00
--- NOTE | 2024-09-19 22:24 | PTCARENOTE ---
sat 88 while sleeping, o2 incr to 4 liters nc, sat incr to 94%
--- NOTE | 2024-09-19 23:53 | PTCARENOTE ---
sys reviewed, changes noted, bladder scanned for 295ml, voided 125ml liliane urine; CHG bath done, linens changed
[2024-09-20] VITALS (27 sets, daily range): BP systolic 120–148; BP diastolic 72–108; PULSE 95; O2SAT 96–97; BMI 20.9
[2024-09-20] MEDS: FLAGYL 500 MG 100 IV ×3 (01:46→17:07)
[2024-09-20 03:35] LABS: Venous Blood Gas B.E. 4.6 mmol/L (-4 to +4); Venous Blood Gas HCO3 31.5 mmol/L (22-27); Venous Blood Gas O2 Sat % 95.9 %; Venous Blood Gas pCO2 57 mmHg (35-48); Venous Blood Gas pH 7.35 (7.32-7.43); Venous Blood Gas pO2 73 mmHg (30-50)
[2024-09-20 03:39] LABS: Venous Blood Gas O2 Therapy 2L/min
[2024-09-20 03:43] LABS: % Basophils 0.1 % (0-2); % Eosinophils 0.1 % (0-6); % Immature Granulocytes 4.2 % (0-0.5); % Lymphocytes 6.9 % (20.5-51.1); % Neutrophils 80.7 % (42.2-75.2); Absolute Immature Granulocytes 0.5 10^3/uL (0-0.05); Absolute Lymphocytes 0.8 10^3/uL (1.2-3.4); Absolute Monocytes 0.9 10^3/uL (0.1-0.6); Absolute Neutrophils 9.3 10^3/uL (1.4-6.5); Hemoglobin 11.2 g/dL (12.0-16.0); Mean Corpuscular Hgb 32.2 pg (27.0-31.0); Mean Corpuscular Volume 100.6 fL (81.0-99.0); Mean Platelet Volume 9.4 fL (7.4-10.4); Nucleated Red Blood Cells % 0 %; Platelet Count 162 10^3/uL (130-400); Red Blood Cell Count 3.48 10^6/uL (4.20-5.40); Red Cell Dist. Width 12.3 % (11.5-14.5); White Blood Cell Count 11.5 10^3/uL (4.8-10.8)
--- NOTE | 2024-09-20 03:56 | PTCARENOTE ---
sys reviewed, bladder scanned 475ml; assisted oob to bsc- voided 150ml dk conc liliane urine, assisted back to bed, str cath for 350ml urine
[2024-09-20 04:04] LABS: ALT (SGPT) 16 U/L (0-35); AST (SGOT) 27 U/L (14-36); Albumin 2.8 g/dl (3.5-5.0); Alkaline Phosphatase 35 U/L (38-126); Blood Urea Nitrogen 40 mg/dl (7-17); Calcium 8.4 mg/dl (8.4-10.2); Carbon Dioxide 33 mmol/L (22-30); Chloride 105 mmol/L (98-107); Estimated Creatinine Clearance 56 ml/min; Glucose 87 mg/dl (70-99); Magnesium 2.3 mg/dl (1.6-2.3); Phosphorus 1.2 mg/dl (2.5-4.5); Potassium 4.7 mmol/L (3.5-5.1); Sodium 143 mmol/L (135-145); Total Bilirubin 0.4 mg/dl (0.2-1.3); Total Protein 4.8 g/dl (6.3-8.2); eGFR > 60.00
[2024-09-20] MEDS: NSS with KCL 40 MEQ 1000 IV (06:02)
[2024-09-20] MEDS: NSS (PRESERVATIVE FREE) 10 ML IV (08:12)
[2024-09-20] MEDS: PROTONIX IV 40 MG IV (08:12)
[2024-09-20] MEDS: HEPARIN 5000 UNITS SC ×3 (08:12→21:05)
[2024-09-20] MEDS: SODIUM PHOSPHATE 255 MEQ IV (08:13)
--- NOTE | 2024-09-20 08:27 | PTCARENOTE ---
07 assumed care; patient in bed. AAO x3; on 2L via nasal canula.
AAO x3;
SR telemetry 81 S1/S2 no murmur denies chest pain
lungs diminished; on 2L via nasal canula IS will be encouraged; No cough no SOB
absent Bowel sound pt denies nausea no vomiting. RT nare sales sump to intermittent suction no output at this time Flushed per order. NPO tende;
Bladder scanned 185
call ch with reach
--- NOTE | 2024-09-20 08:31 | W.PN.INTV ---
Today's Communication / Plan
Recommendations
Pain control
NGT to low intermittent wall suction
Defer diet to surgery; keep NPO for now
Monitor NGT output
Encourage incentive spirometer
Patient is stable for downgrade out of ICU to telemetry. This was confirmed with surgery (Dr. Ortiz) who agrees. Construction Sales Representative/Pulmonary service will now sign off. Please re-consult if there are any additional questions/concerns, or if patient's
respiratory status deteriorates.
Assessment
-
Assessment: 69-year-old female with a past medical history of hypertension, CVA and hyperlipidemia who presents with abdominal pain. She has not had a bowel movement in 3 days and has been taking MiraLAX and Metamucil. Also having difficulty
urinating. Has pain in her right lower quadrant lower abdomen and groin. Has been vomiting few times with reduced oral intake over the last few days. Endorses weakness and fatigue. Initially in the ER she was afebrile to 98 �F, pulse rate 94,
breathing at 18 breaths/min, BP 88/65 and saturating 96% on room air. Initial labs showed WBC WNL at 5.4, Hb 15.4, D-dimer 3.87, potassium 3.3, sodium 131, serum bicarbonate level 40, blood gas pH 7.63, pCO2 44, calcium 10.9, initial troponin
0.107, urinalysis with trace ketones and COVID antigen negative. CXR showed a patchy opacity within the right lower lobe suggestive of pneumonia versus subsegmental atelectasis. Also a hazy left lower lobe opacity. CT abdomen/pelvis with oral
contrast showed an incarcerated right groin hernia containing a loop of small bowel with a high-grade small intestinal obstruction. Also patchy airspace consolidation seen in the lung bases. In the ER she was initially started on a heparin drip
and given total of 1 L NS 0.9% and potassium. She was later reversed with protamine and then brought to the OR after general surgery was consulted. She underwent laparoscopic femoral hernia repair with open small bowel resection and anastomosis.
EBL was minimal at 7 cc with no immediate complications. She was then transferred to the ICU postoperatively for further care and scaling machine operator services consulted for additional management/recommendations.
Chronic conditions SKEIN WASHER: CVA, hypertension, hyperlipidemia
Impression:
#Incarcerated right femoral hernia s/p laparoscopic femoral hernia repair with open small bowel resection and anastomosis (POD #2)
#Acute respiratory failure with hypoxia due to bilateral lower lobe pneumonia
#Hypotension likely due to sepsis from above - now pt is normotensive
#Elevated troponin - peaked at 0.107 on 09/18/2024
#Bandemia likely reactive due to surgery above
#Metabolic alkalosis with appropriate respiratory compensation
#Hypokalemia
#BOBY � markedly improved and stable
#Hypoalbuminemia
Plan:
- Postoperative management as per general surgery
- Intraoperative findings included a very tight right femoral hernia containing nonviable bowel
- Follow-up pathology from the OR
- Currently on NS 0.9% @ 80cc/hr
- Defer IVF management to surgery
- Currently on levaquin/flagyl
- No cultures were sent; if patient spikes a fever then would check blood Cx at that time and re-check CXR with sputum Cx if she can produce a sample and UA/UCx
- Trend WBC; monitor for fevers
- Pain control
- Trend sCr, renally dose all meds/Abx
- Replete electrolytes with K>4, Mg>2
- trend sHCO3 level; trend blood gas; consider diamox if metabolic alkalosis persists with HCO3>35 and pH>7.45 --> no current need for diamox at this juncture --> alkalosis is likely due to contraction alkalosis in setting of reduce PO intake for
several days
- Titrate supplemental O2 to maintain SpO2 >90-94%
- Continue aspiration precautions
- Maintain MAP>65
- s/p IV albumin to reach goal albumin level >3g/dL to help her hypotension
- Maintain euglycemia with goal BG 140-180
- Keep NPO
- Defer starting diet to surgery
- Trend H/H and transfuse if needed to keep Hb>7g/dL; keep plt>20k, unless there is concern for bleeding then keep plt>50k
- prn nebulized bronchodilators - not currently bronchospastic
- Incentive spirometer encouraged 10x per hour for at least 4 hrs a day
- DVT ppx - start HSQ
Patient is stable for downgrade out of ICU to telemetry. This was confirmed with surgery who agrees (Dr. Ortiz). Construction Sales Representative/Pulmonary service will now sign off. Thank you for allowing us to be involved in the care of this patient. Please
reconsult if there are any additional questions/concerns, or if patient's respiratory status deteriorates.
Data:
CT A/P with PO contrast 09/18/2024:
1. Incarcerated right groin hernia, containing a loop of small bowel, with associated high-grade small intestinal obstruction. Transition point is best seen on coronal images 20-22. Small bowel distal to the hernia is decompressed.
2. Right groin hernia may be an inguinal hernia or femoral hernia.
3. No evidence of pneumatosis intestinalis or extraluminal air.
4. Bilateral nephrolithiasis without hydronephrosis.
CXR 09/18/2024:
1. Patchy opacity within the right lower lobe, most suggestive of pneumonia or subsegmental atelectasis.
2. Hazy left lower lobe opacity, with partial obscuration of left hemidiaphragm. Suggestive of left lower lobe pneumonia or subsegmental atelectasis.
Total time spent today was 38 minutes for this encounter. Time includes reviewing laboratory test/imaging results, reviewing pertinent medical records, obtaining and reviewing medical history, performing an appropriate exam, ordering medications,
tests and procedures. Time also includes documentation of this encounter, coordinating patient care and communicating with other healthcare professionals. Total time does not include separately billed tests performed on this date of service.
Subjective Dataa
Subjective Data
Date of Service:
Date of Service: September 20, 2024
Chief Complaint: Construction Sales Representative Follow Up
Subjective:
Patient seen and evaluated today at bedside. Patient's brother, Jl, at bedside and all questions were answered. Currently, heart rate 85, saturating 99% on 4 L/min, and heart rate 71. She is very eager to eat. Still no bowel movement. NGT on
LIWS. She denies chest pain, ANNE, nausea, fevers or chills.
Review of Systems
General: Other (Negative unless mentioned above)
Objective Data
Data Reviewed
Vital Signs / I&O / Oxygen:
Vital Signs
Temp Pulse Resp BP Pulse Ox
98.3 F 79 17 130/80 95
09/20/24 08:39 09/20/24 08:00 09/20/24 08:00 09/20/24 08:00 09/20/24 08:00
Intake and Output
09/19/24 09/20/24 09/21/24
06:59 06:59 06:59
Intake Total 1847.5 / 1947.5 3200.0 / 3300.0 363.7 / 363.7
Output Total 1675 / 2275 2275 / 2275 0 / 0
Balance 172.5 / -327.5 925.0 / 1025.0 363.7 / 363.7
SaO2 95
Nasal Cannula flow liters per 4
minute
Physical Exam
General: Respiratory Distress (negative), Comfortable, Chills (negative) and Sweats (negative)
HEENT: Normocephalic and Anicteric
Cardiovascular: S1-S2, Rub (negative) and Peripheral Edema (negative)
Respiratory: Clear, Wheeze (negative), Crackles (negative), Rhonchi (negative), Non-Labored Respirations, Stridor (negative) and Other (Diminished breath sounds bilaterally)
GI: Soft, Non Distended, Non Tender and Other (Hypoactive bowel sounds)
Neurology: AO x 3 and Tremors (negative)
Skin: Warm, Dry, Cyanosis (negative) and Jaundice (negative)
Labs/Micro/Reports
Lab Data
09/20/24 03:25
09/20/24 03:25
Microbiology
09/18/24 19:59 Nasal Swab Influenza Types A & B (RICARDO) - Final
Negative for Influenza A & B, NAAT
Negative results must be combined with clinical observations
and patient history.
Nucleic Acid Amplification test (NAAT)performed on the
[employer] platform.
[2024-09-20] MEDS: DILAUDID 0.5 MG IV (10:29)
--- NOTE | 2024-09-20 10:48 | PN.CDI ---
CDI
- -
CDI:
Physician Documentation Request
Admit Date: 09/18/24 14:18
Dear Doctor Finesse,
Please review the following and provide your response in the progress notes.
Clinical Indicators:
Pt admitted with Incarcerated hernia /SBO obstruction/ Aspiration Pneumonia
Documented per ED,' Oxygen saturation noted to be in the 80s.... Acute hypoxemic respiratory failure...'
Radiology Therapist consult, ' Acute respiratory failure with hypoxia due to bilateral lower lobe pneumonia...'
Patient care note 09/19 @ 0930, ' Pulse ox fluctuating between 86-88%. O2 increased to 6L nc. Lung sounds shallow and diminished; coarse in b/l base....'
Patient care note 09/19 @ 1833, ' Lung sounds and pulse ox improved throughout the shift. O2 weaned to 2L nc. Pulse ox 97%. '
Pt care note 09/19 @ 2224, 'sat 88 while sleeping, o2 incr to 4 liters nc, sat incr to 94%..'
Documented per H&P and progress note 09/19, ' Hypoxemic respiratory insufficiency secondary to bilateral lower lobe pneumonia...'
09/18/24
17:27 09/18/24
19:30 09/18/24
19:30
Nasal Cannula flow liters per minute 4 6 4
09/19/24
08:00 09/19/24
08:00 09/19/24
18:38
Nasal Cannula flow liters per minute 6 6 2
09/19/24
20:00 09/19/24
22:26 09/20/24
08:00
Nasal Cannula flow liters per minute 2 4 2
Clarify which of the following accurately represents the patient's respiratory status:
Acute Hypoxic Respiratory failure
Hypoxia- only
Other
Additional information for Respiratory Failure:
Recognized criteria for Respiratory Failure (Source: [facility] Aug 2013)
ABGs: (1 or more) Symptoms Please indicate type if known
1. p)2 <60 or RA SPO2 <91% on RA 1. Tachypnea, SOB, dyspnea Hypoxic
2. pCO2 50 and pH <7.35 2. Use of accessory muscles Hypercapnic
3. pO2 decrease of pCO2 increase by 3. Pallor or cyanosis Hypoxic and Hypercapnic
10 mmHg from baseline if known 4. Anxiety or restlessness Unable to determine
5. Unable to speak in full sentences
Supplemental O2 of > 40% (5LPM) Intubation is not required
Use of terms such as suspected, likely, concern for, or probable (associated with a specific diagnosis that is being evaluated, monitored, or treated as if it exists) are acceptable and can be coded in the inpatient setting, when documented at the
time of discharge.
Thank you,
Gaby Benavides RN
CDI Specialist
Daisy Text
Please use your independent medical judgment in providing your response.
[2024-09-20] MEDS: NSS 1000 IV (12:51)
--- NOTE | 2024-09-20 13:49 | W.PN.HOSP.TC ---
Today's Communication/Plan
-
monitor vitals
see plan
cw abx
awaiting bowel return
surgery to see today
PT/OT
replete phos
Okay to transfer out of ICU if ok with surgery
Assessment / Plan
Assessment / Plan
General: Well Developed, Well Nourished and No Apparent Distress
HEENT: NormoCephalic, +ngt
Respiratory: Clear
Cardiac: S1/S2 and Regular Rhythm; No Murmur or Rub
GI: soft
Musculoskeletal: no edema
Neuro: Nonfocal/grossly intact
Incarcerated right groin hernia with high-grade small bowel obstruction
-CT abdomen pelvis shows incarcerated right groin hernia continue loop of small bowel with associated high-grade small intestinal obstruction, transition point
-N.p.o.
-IV fluids
-NG tube
-Levaquin/Flagyl
Surgery following,status post laparoscopic primary repair and open small bowel resection and anastomosis
hypovolemic shock likely 2/2 incarcerated hernia. Continue to monitor.
monitor urine output
# Acute hypoxic respiratory failure secondary to bilateral lower lobe pneumonia
-Levaquin/Flagyl
continue to monitor; wean o2 as tolerated; now on 2L
denies chest pain
# Nonischemic myocardial injury in the setting of bowel obstruction/BOBY
-EKG shows sinus rhythm with frequent PVCs, PACs
-No chest pain at any time
Hypophosphatemia
Monitor
# QTc prolongation secondary to hypokalemia
resolved
Metabolic alkalosis
Monitor
# Hypokalemia
resolved
# Acute kidney injury
-Creatinine of 2.4; now improved
-Monitor with IV fluids
-Hold lisinopril
History of CVA
-Hold statin
Essential hypertension
-Hold diltiazem
-Hold lisinopril
Constipation history
-Hold stool softeners
Full code
DVT prophylaxis�SCDs, start pharm ppx when okay with surgery
I spent a total of 51 minutes with the patient or on the floor. More than 50% of this time involved counseling and coordination of care.
Anticipated Discharge: > 48 hours
Subjective/Interval History
-
Date of Service: September 20, 2024
denies nausea
Objective Data
-
Labs:
Laboratory Results
09/20/24
03:25
WBC 11.5 H
Hgb 11.2 L
Hct 35.0 L
Plt Count 162
Sodium 143
Potassium 4.7
Chloride 105
Carbon Dioxide 33 H
BUN 40 H
Creatinine 0.9
Glucose 87
Calcium 8.4
Total Bilirubin 0.4
AST 27
ALT 16
Alkaline Phosphatase 35 L
Vital Signs:
Vital Signs
Temp Pulse Resp BP Pulse Ox
98.6 F 79 17 130/80 95
09/20/24 11:18 09/20/24 08:00 09/20/24 08:00 09/20/24 08:00 09/20/24 08:00
I&O
09/19/24 09/20/24 09/21/24
06:59 06:59 06:59
Intake Total 1847.5 / 1947.5 3200.0 / 3300.0 363.7 / 363.7
Output Total 1675 / 2275 2275 / 2275 0 / 0
Balance 172.5 / -327.5 925.0 / 1025.0 363.7 / 363.7
--- NOTE | 2024-09-20 14:01 | CM ---
CM following re: discharge planning.
Reviewed pt's chart, met with pt. Pt's brother Jl and brother Elpidio at bedside.
Pt is POD #1 s/p Incarcerated right groin hernia with high-grade small bowel obstruction. NJ tube, continue supportive care.
PT and OT evaluations noted - SNF level of care recommended. Pt and her brothers are aware. pt stated she feels it is too early to discuss next level of care and pt expressed her desire to return back home with VN services. pt's brothers support
pt's plan and they would like to make a final decision regarding SNF vs VN closer to discharge.
Pt would like to have re-evaluation by PT and OT closer to discharge.
D/C plan: at this time SNF vs VN. Pt and her brothers requested to decide next level of care closer to discharge.
CM will follow with discharge plan updates as hospitalization progresses
--- NOTE | 2024-09-20 14:30 | W.PN.GS2 ---
Today's Communication / Plan
-
Cont current mgmt
Await ROBF
Assessment / Plan
-
This is a 69-year-old female who presented to our hospital with an incarcerated femoral hernia status post laparoscopic primary repair and open small bowel resection and anastomosis.
Clinically well and without complaints, working with PT during my encounter, no signs of ROBF yet, NGT with bilious fluid though low output
N.p.o., continue IV fluids.
Consider starting TPN on 09/21/2024 if no significant return of bowel function.
Continue NG tube to low intermittent wall suction
Check CBC, BMP, mag, Phos daily, replete electrolytes as needed.
Saldaña out yesterday, now voiding
No activity restrictions from a surgery perspective, please get patient out of bed into the chair and ambulate as much as possible. Okay to clamp NG tube.
PT OT
General Surgery will continue to follow.
Subjective Data
-
Date of Service: September 20, 2024
AFVSS, pain controlled, denies n/v with NGT to suction, denies flatus/BM
Objective Data
-
Intake and Output
09/19/24 09/20/24 09/21/24
06:59 06:59 06:59
Intake Total 1847.5 / 1947.5 3200.0 / 3300.0 763.7 / 763.7
Output Total 1675 / 2275 2275 / 2275 0 / 0
Balance 172.5 / -327.5 925.0 / 1025.0 763.7 / 763.7
Intake:
IV fluids (Total) 1500 / 1600 2370.0 / 2470.0 700 / 700
IVF 400 / 400
NSS with KCL 40 MEQ 40 meq In 1 1000 / 1100 300 / 300
,000 ml @ 100 mls/hr IV .Q10H
[facility]NA[facility] Rx#:[id number]
Normosal 1500 / 1500
Nss 1,000 ml @ 100 mls/hr IV . 1100 / 1100
Q10H [facility] Rx#:[id number]
Potassium 270.0 / 270.0
IV piggybacks 317.5 / 317.5 450 / 450 63.7 / 63.7
Amount instilled into GI Tube ( 30 / 30 180 / 180
Total)
[place] Sump 30 / 30 180 / 180
Blood Products 200 / 200
Albumin 25% 200 / 200
Output:
Gastrointestinal tube output ( 300 / 900 1100 / 1100
Total)
[place] Sump 300 / 900 1100 / 1100
Urine, [place] 1375 / 1375 200 / 200
Urine, Voided 625 / 625 0 / 0
Straight cath output 350 / 350
Vital Signs
Temp Pulse Resp BP Pulse Ox
98.6 F 88 17 127/88 100
09/20/24 11:18 09/20/24 14:00 09/20/24 14:00 09/20/24 14:00 09/20/24 14:00
Lab Results
09/20/24 03:25
09/20/24 03:25
Calcium 8.4 mg/dl (8.4-10.2) 09/20/24 03:25
Phosphorus 1.2 mg/dl (2.5-4.5) L 09/20/24 03:25
Magnesium 2.3 mg/dl (1.6-2.3) 09/20/24 03:25
Total Bilirubin 0.4 mg/dl (0.2-1.3) 09/20/24 03:25
AST 27 U/L (14-36) 09/20/24 03:25
ALT 16 U/L (0-35) 09/20/24 03:25
Alkaline Phosphatase 35 U/L (38-126) L 09/20/24 03:25
Total Protein 4.8 g/dl (6.3-8.2) L 09/20/24 03:25
Albumin 2.8 g/dl (3.5-5.0) L 09/20/24 03:25
Physical Exam
-
Gen: NAD
Abd: soft, nt, nd
--- NOTE | 2024-09-20 14:31 | PTCARENOTE ---
Tranfer from bed to chair x 2 people assist. Sales Sump draining green output 100 cc from 7 am until now . Denies nausea no vomiting. No urinal output . Bladder scanned for > 435; blader will be emppgy via straight cath
[2024-09-20] MEDS: LEVAQUIN 150 IV (21:05)
[2024-09-21] VITALS (7 sets, daily range): BP systolic 142–154; BP diastolic 86–104; PULSE 90; BMI 20.9
[2024-09-21] MEDS: NSS 1000 IV ×2 (01:15→06:25)
--- NOTE | 2024-09-21 01:45 | TRANSFER ---
Report given to [address] [place] [address] Sammie KRISHNAMURTHY. Pt tsx'd to [facility] room 2115 via hospital bed w/ personal belongings.
--- NOTE | 2024-09-21 01:55 | PTCARENOTE ---
01:15 pt rec'vd from ICU report nurse Serg: pt aax3, r nare NGT in place, lap site glued intact to b/l groin and abd sites, midline primaseal with scant pinpoint drainage.
[2024-09-21] MEDS: FLAGYL 500 MG 100 IV ×3 (02:53→17:40)
[2024-09-21 06:40] LABS: Hematocrit 38.6 % (37.0-47.0); Hemoglobin 12.1 g/dL (12.0-16.0); Mean Corp Hgb Conc. 31.3 g/dL (33.0-37.0); Mean Corpuscular Hgb 32.1 pg (27.0-31.0); Mean Corpuscular Volume 102.4 fL (81.0-99.0); Mean Platelet Volume 9.7 fL (7.4-10.4); Platelet Count 191 10^3/uL (130-400); Red Blood Cell Count 3.77 10^6/uL (4.20-5.40); Red Cell Dist. Width 12.2 % (11.5-14.5); White Blood Cell Count 15.4 10^3/uL (4.8-10.8)
[2024-09-21 07:10] LABS: ALT (SGPT) 17 U/L (0-35); AST (SGOT) 26 U/L (14-36); Albumin 2.8 g/dl (3.5-5.0); Alkaline Phosphatase 56 U/L (38-126); Blood Urea Nitrogen 32 mg/dl (7-17); Calcium 8.4 mg/dl (8.4-10.2); Carbon Dioxide 25 mmol/L (22-30); Chloride 109 mmol/L (98-107); Estimated Creatinine Clearance 71 ml/min; Glucose 69 mg/dl (70-99); Magnesium 2.1 mg/dl (1.6-2.3); Phosphorus 1.3 mg/dl (2.5-4.5); Potassium 3.7 mmol/L (3.5-5.1); Sodium 145 mmol/L (135-145); Total Bilirubin 0.3 mg/dl (0.2-1.3); eGFR > 60.00
[2024-09-21] MEDS: D5/0.9% SODIUM CHLORIDE 1000 IV (08:36)
[2024-09-21] MEDS: NSS (PRESERVATIVE FREE) 10 ML IV (08:38)
[2024-09-21] MEDS: PROTONIX IV 40 MG IV (08:39)
[2024-09-21] MEDS: HEPARIN 5000 UNITS SC ×3 (08:39→23:33)
[2024-09-21] MEDS: POTASSIUM PHOSPHATE 259.0909 MEQ IV (08:39)
[2024-09-21 09:00] LABS: % Eosinophils 1.4 % (0-6); % Immature Granulocytes 4.7 % (0-0.5); % Monocytes 6.1 % (1.7-9.3); % Neutrophils 81.8 % (42.2-75.2); Absolute Eosinophils 0.2 10^3/uL (0-0.7); Absolute Immature Granulocytes 0.7 10^3/uL (0-0.05); Absolute Lymphocytes 0.9 10^3/uL (1.2-3.4); Absolute Monocytes 0.9 10^3/uL (0.1-0.6); Absolute Neutrophils 12.6 10^3/uL (1.4-6.5); Nucleated Red Blood Cells % 0 %
--- NOTE | 2024-09-21 11:45 | W.PN.HOSP.TC ---
Today's Communication/Plan
-
monitor vitals
see plan
NPO for now; NGT
surgery to see today
Pharm DVTppx if ok with surgery
PT/OT
cw abx
monitor leukocytosis
Assessment / Plan
Assessment / Plan
General: Well Developed, Well Nourished and No Apparent Distress
HEENT: NormoCephalic, +ngt
Respiratory: Clear
Cardiac: S1/S2 and Regular Rhythm; No Murmur or Rub
GI: soft
Musculoskeletal: no edema
Neuro: Nonfocal/grossly intact
Incarcerated right groin hernia with high-grade small bowel obstruction
-CT abdomen pelvis shows incarcerated right groin hernia continue loop of small bowel with associated high-grade small intestinal obstruction, transition point
-N.p.o.
-IV fluids
-NG tube
-Levaquin/Flagyl
Surgery following,status post laparoscopic primary repair and open small bowel resection and anastomosis
hypovolemic shock likely 2/2 incarcerated hernia. shock resolved. Continue to monitor.
monitor urine output, now voiding
# Acute hypoxic respiratory failure secondary to bilateral lower lobe pneumonia
-Levaquin/Flagyl
continue to monitor; wean o2 as tolerated; now on 2L
denies chest pain
# Nonischemic myocardial injury in the setting of bowel obstruction/BOBY
-EKG shows sinus rhythm with frequent PVCs, PACs
-No chest pain at any time
Hypophosphatemia
Monitor; replete PRN
# QTc prolongation secondary to hypokalemia
resolved
Metabolic alkalosis
Monitor
# Hypokalemia
resolved
# Acute kidney injury
-Creatinine of 2.4; now resolved
-Monitor with IV fluids
-Hold lisinopril
History of CVA
-Hold statin
Essential hypertension
-Hold diltiazem
-Hold lisinopril
hydralazine prn for now
Constipation history
-Hold stool softeners
Full code
DVT prophylaxis�SCDs, start pharm ppx when okay with surgery
I spent a total of 51 minutes with the patient or on the floor. More than 50% of this time involved counseling and coordination of care.
Anticipated Discharge: > 48 hours
Subjective/Interval History
-
Date of Service: September 21, 2024
denies pain
Objective Data
-
Labs:
Laboratory Results
09/21/24
04:39
WBC 15.4 H
Hgb 12.1
Hct 38.6
Plt Count 191
Sodium 145
Potassium 3.7
Chloride 109 H
Carbon Dioxide 25
BUN 32 H
Creatinine 0.7
Glucose 69 L
Calcium 8.4
Total Bilirubin 0.3
AST 26
ALT 17
Alkaline Phosphatase 56
Vital Signs:
Vital Signs
Temp Pulse Resp BP Pulse Ox
99.2 F 76 20 145/93 97
09/21/24 01:28 09/21/24 01:28 09/21/24 01:28 09/21/24 01:28 09/21/24 01:30
I&O
09/20/24 09/21/24 09/22/24
06:59 06:59 06:59
Intake Total 3200.0 / 3300.0 1623.7 / 1623.7
Output Total 2275 / 2275 895 / 895
Balance 925.0 / 1025.0 728.7 / 728.7
--- NOTE | 2024-09-21 12:20 | W.PN.GS2 ---
Addendum entered and electronically signed by Mehul Fletcher MD 09/21/24 12:24:
Correction: Though the patient stated no bowel function, a large bowel movement is recorded.
Will hold off on PICC/TPN for now
Original Note:
Today's Communication / Plan
-
TPN today
Assessment / Plan
-
This is a 69-year-old female who presented to our hospital with an incarcerated femoral hernia now s/p POD#3 Lap right primary femoral hernia repair and open SBR. Expected ileus.
Clinically well and without complaints, working with PT during my encounter, no signs of ROBF yet, NGT with bilious fluid though low output
N.p.o., continue IV fluids.
Would start TPN today
Continue NG tube to low intermittent wall suction
Check CBC, BMP, mag, Phos daily, replete electrolytes as needed.
Saldaña out yesterday, now voiding
No activity restrictions from a surgery perspective, please get patient out of bed into the chair and ambulate as much as possible. Okay to clamp NG tube.
PT OT
General Surgery will continue to follow.
Time Spent
Total Time Spent with Patient (in minutes): 20
Subjective Data
-
Date of Service: September 21, 2024
Interval Events:
No acute events overnight. Slept poorly. Pain Controlled. Denies Nausea/Vomiting, -bowel function.
Objective Data
-
Intake and Output
09/20/24 09/21/24 09/22/24
06:59 06:59 06:59
Intake Total 3200.0 / 3300.0 1623.7 / 1623.7
Output Total 2275 / 2275 895 / 895
Balance 925.0 / 1025.0 728.7 / 728.7
Intake:
IV fluids (Total) 2370.0 / 2470.0 1400 / 1400
IVF 400 / 400
NSS with KCL 40 MEQ 40 meq In 1 1000 / 1099 300 / 300
,000 ml @ 100 mls/hr IV .Q10H
[facility] Rx#:[id number]
Nss 1,000 ml @ 100 mls/hr IV . 1100 / 1100
Q10H [facility] Rx#:[id number]
Potassium 270.0 / 270.0
IV piggybacks 450 / 450 163.7 / 163.7
Amount instilled into GI Tube ( 180 / 180 60 / 60
Total)
[place] Sump 180 / 180 60 / 60
Blood Products 200 / 200
Albumin 25% 200 / 200
Output:
Gastrointestinal tube output ( 1100 / 1100 270 / 270
Total)
[place] Sump 1100 / 1100 270 / 270
Urine, [place] 200 / 200
Urine, Voided 625 / 625 625 / 625
Straight cath output 350 / 350
Other:
Number of approximated SMALL 1
amounts of urine
Vital Signs
Temp Pulse Resp BP Pulse Ox
99.2 F 76 20 145/93 97
09/21/24 01:28 09/21/24 01:28 09/21/24 01:28 09/21/24 01:28 09/21/24 01:30
Lab Results
09/21/24 04:39
09/21/24 04:39
Calcium 8.4 mg/dl (8.4-10.2) 09/21/24 04:39
Phosphorus 1.3 mg/dl (2.5-4.5) L 09/21/24 04:39
Magnesium 2.1 mg/dl (1.6-2.3) 09/21/24 04:39
Total Bilirubin 0.3 mg/dl (0.2-1.3) 09/21/24 04:39
AST 26 U/L (14-36) 09/21/24 04:39
ALT 17 U/L (0-35) 09/21/24 04:39
Alkaline Phosphatase 56 U/L (38-126) 09/21/24 04:39
Total Protein 5.0 g/dl (6.3-8.2) L 09/21/24 04:39
Albumin 2.8 g/dl (3.5-5.0) L 09/21/24 04:39
Physical Exam
-
GENERAL/NEURO: Awake, Alert, no distress
CHEST: Unlabored breathing on RA
ABDOMEN: Soft, Non-Tender, distended. NG tube with dark green bilious output.
--- NOTE | 2024-09-21 14:32 | CM ---
Reviewed the chart notes. NGT to low wall suction. Per PT notes, patient ambulated 150 feet with rolling walker supervision. PT recommending SNF vs Home Health. CM continues to be available to patient/family and is monitoring medical plan for
needs at discharge.
Plan: Discharge plans will depend on the patient's progress. SNF vs home with home health.
[2024-09-21] MEDS: LEVAQUIN 150 IV (20:05)
[2024-09-22] MEDS: FLAGYL 500 MG 100 IV ×3 (03:08→17:11)
[2024-09-22 03:14] VITALS: BP 139/96
[2024-09-22] MEDS: D5/0.9% SODIUM CHLORIDE 1000 IV ×2 (05:00→20:58)
[2024-09-22 05:34] LABS: Hematocrit 34.3 % (37.0-47.0); Hemoglobin 11.5 g/dL (12.0-16.0); Mean Corp Hgb Conc. 33.5 g/dL (33.0-37.0); Mean Corpuscular Hgb 33.4 pg (27.0-31.0); Mean Corpuscular Volume 99.7 fL (81.0-99.0); Mean Platelet Volume 9.6 fL (7.4-10.4); Platelet Count 208 10^3/uL (130-400); Red Blood Cell Count 3.44 10^6/uL (4.20-5.40); Red Cell Dist. Width 12.4 % (11.5-14.5); White Blood Cell Count 16.6 10^3/uL (4.8-10.8)
[2024-09-22 05:47] LABS: ALT (SGPT) 17 U/L (0-35); AST (SGOT) 25 U/L (14-36); Albumin 2.6 g/dl (3.5-5.0); Alkaline Phosphatase 42 U/L (38-126); Blood Urea Nitrogen 26 mg/dl (7-17); Carbon Dioxide 25 mmol/L (22-30); Chloride 111 mmol/L (98-107); Estimated Creatinine Clearance 71 ml/min; Glucose 128 mg/dl (70-99); Magnesium 1.9 mg/dl (1.6-2.3); Potassium 3.6 mmol/L (3.5-5.1); Sodium 146 mmol/L (135-145); Total Bilirubin 0.4 mg/dl (0.2-1.3); Total Protein 4.8 g/dl (6.3-8.2); eGFR > 60.00
[2024-09-22 07:00] VITALS: BP 147/94
[2024-09-22] MEDS: PROTONIX IV 40 MG IV (07:57)
[2024-09-22] MEDS: HEPARIN 5000 UNITS SC (07:57)
[2024-09-22] MEDS: NSS (PRESERVATIVE FREE) 10 ML IV (07:57)
[2024-09-22] MEDS: VISBIOME 1 CAP PO (09:57)
[2024-09-22] MEDS: POTASSIUM PHOSPHATE 259.0909 MEQ IV (10:02)
[2024-09-22 10:24] LABS: % Basophils 0.8 % (0-2); % Eosinophils 1.6 % (0-6); % Immature Granulocytes 5.2 % (0-0.5); % Monocytes 5.1 % (1.7-9.3); % Neutrophils 81.3 % (42.2-75.2); Absolute Basophils 0.1 10^3/uL (0-0.2); Absolute Eosinophils 0.3 10^3/uL (0-0.7); Absolute Immature Granulocytes 0.9 10^3/uL (0-0.05); Absolute Monocytes 0.9 10^3/uL (0.1-0.6); Absolute Neutrophils 13.5 10^3/uL (1.4-6.5); Nucleated Red Blood Cells % 0 %
--- NOTE | 2024-09-22 10:49 | W.PN.GS2 ---
Addendum entered and electronically signed by Tone Ortiz MD 09/22/24 11:56:
I saw and examined the patient.
The Electronic Communications Technician's note was reviewed and I agree with the note.
Comment: Distention much improved, passing BM/flatus. Minimal NGT output though remains somewhat bilious. Exam with significant improvement in distention. Will DC NGT and trial CLD
Original Note:
Today's Communication / Plan
-
Trial of clears
Assessment / Plan
-
This is a 69-year-old female who presented to our hospital with an incarcerated femoral hernia with acute hypoxemia secondary to BL lower lobe pneumonia now s/p POD#4 Lap right primary femoral hernia repair and open SBR.
Ileus resolving, passing flatus/stools now with marked improvement in distention. NGT removed at bedside
AFVSS. Still requiring 2L of O2
Leukocytosis persists and trending up, no fevers
Plan:
Continue ABX and trend labs
NGT removed, will trial on clears
Increase activity/PT & OT following. Encouraged patient to be up OOB
IS while awake/wean O2 as able
VTE ppx with sq lovenox and scds while in bed
Subjective Data
-
Date of Service: September 22, 2024
Patient seen and examined at bedside with Dr. Ortiz. Denies n/v. Passing stools/flatus.
Objective Data
-
Intake and Output
09/21/24 09/22/24 09/23/24
06:59 06:59 06:59
Intake Total 1623.7 / 1623.7 2249 / 2249
Output Total 895 / 895 600 / 600
Balance 728.7 / 728.7 1649 / 1649
Intake:
IV fluids (Total) 1400 / 1400 1500 / 1500
IVF 400 / 400
NSS with KCL 40 MEQ 40 meq In 1 300 / 300
,000 ml @ 100 mls/hr IV .Q10H
[facility] Rx#:[id number]
IV piggybacks 163.7 / 163.7 659 / 659
Amount instilled into GI Tube ( 60 / 60 90 / 90
Total)
Milton Sump 60 / 60 90 / 90
Output:
Gastrointestinal tube output ( 270 / 270 600 / 600
Total)
Milton Sump 270 / 270 600 / 600
Urine, Voided 625 / 625
Other:
Number of approximated SMALL 1 2
amounts of urine
Number of approximated MODERATE 3
amounts of urine
Vital Signs
Temp Pulse Resp BP Pulse Ox
98.3 F 81 18 147/94 97
09/22/24 07:00 09/22/24 07:00 09/22/24 07:00 09/22/24 07:00 09/22/24 07:00
Lab Results
09/22/24 04:53
09/22/24 04:53
Calcium 8.0 mg/dl (8.4-10.2) L 09/22/24 04:53
Phosphorus 2.0 mg/dl (2.5-4.5) L 09/22/24 04:53
Magnesium 1.9 mg/dl (1.6-2.3) 09/22/24 04:53
Total Bilirubin 0.4 mg/dl (0.2-1.3) 09/22/24 04:53
AST 25 U/L (14-36) 09/22/24 04:53
ALT 17 U/L (0-35) 09/22/24 04:53
Alkaline Phosphatase 42 U/L (38-126) 09/22/24 04:53
Total Protein 4.8 g/dl (6.3-8.2) L 09/22/24 04:53
Albumin 2.6 g/dl (3.5-5.0) L 09/22/24 04:53
Physical Exam
-
GENERAL/NEURO: Awake, Alert, no distress
CHEST: Unlabored breathing on RA
ABDOMEN: Soft, Non-Tender, non-distended. Incisions with intact glue, well approximated without erythema
[2024-09-22 11:00] VITALS: BP 144/88
--- NOTE | 2024-09-22 11:19 | CM ---
resource development manager reviewed patient's chart and met with patient and patient is currently ambulating 150 feet with rolling walker and supervision with physical therapy. Patient may not qualify for skilled placement, patient wants to return to home with
her brother at discharge, patient is not sure she wants visiting nurses and will follow up with nurse case manager.
Plan; Home with brother when stable, patient is not sure she wants visiting nurses at discharge, she plans on discussing with her brother.
--- NOTE | 2024-09-22 12:17 | W.PN.HOSP.TC ---
Today's Communication/Plan
-
Monitor vital signs see plan
Trial of clears
Pain control
PT/OT
Restart lisinopril and Cardizem
Assessment / Plan
Assessment / Plan
General: Well Developed, Well Nourished and No Apparent Distress
HEENT: NormoCephalic
Respiratory: Clear
Cardiac: S1/S2 and Regular Rhythm; No Murmur or Rub
GI: soft
Musculoskeletal: no edema
Neuro: Nonfocal/grossly intact
Incarcerated right groin hernia with high-grade small bowel obstruction
-CT abdomen pelvis shows incarcerated right groin hernia continue loop of small bowel with associated high-grade small intestinal obstruction, transition point
Symptoms now slowly improving, discontinued NG tube 09/22. Started clears
-cwLevaquin/Flagyl
Surgery following,status post laparoscopic primary repair and open small bowel resection and anastomosis
hypovolemic shock likely 2/2 incarcerated hernia. shock resolved. Continue to monitor.
monitor urine output, now voiding
# Acute hypoxic respiratory failure secondary to bilateral lower lobe pneumonia
-Levaquin/Flagyl
continue to monitor; wean o2 as tolerated; now on 2L
denies chest pain
# Nonischemic myocardial injury in the setting of bowel obstruction/BOBY
-EKG shows sinus rhythm with frequent PVCs, PACs
-No chest pain at any time
Hypophosphatemia
Monitor; replete PRN
# QTc prolongation secondary to hypokalemia
resolved
Metabolic alkalosis
Monitor
Mild hypernatremia
Monitor
# Hypokalemia
resolved
# Acute kidney injury
-Creatinine of 2.4; now resolved
-Monitor with IV fluids
-Hold lisinopril
History of CVA
-Hold statin
Essential hypertension
-Restart diltiazem
-Restart lisinopril
hydralazine prn for now
Constipation history
-Hold stool softeners
Full code
DVT prophylaxis�SCDs, Lovenox
Anticipated Discharge: > 48 hours
Subjective/Interval History
-
Date of Service: September 22, 2024
denies pain
Objective Data
-
Labs:
Laboratory Results
09/22/24
04:53
WBC 16.6 H
Hgb 11.5 L
Hct 34.3 L
Plt Count 208
Sodium 146 H
Potassium 3.6
Chloride 111 H
Carbon Dioxide 25
BUN 26 H
Creatinine 0.7
Glucose 128 H
Calcium 8.0 L
Total Bilirubin 0.4
AST 25
ALT 17
Alkaline Phosphatase 42
Vital Signs:
Vital Signs
Temp Pulse Resp BP Pulse Ox
97.9 F 73 16 144/88 99
09/22/24 11:00 09/22/24 11:00 09/22/24 11:00 09/22/24 11:00 09/22/24 11:00
I&O
09/21/24 09/22/24 09/23/24
06:59 06:59 06:59
Intake Total 1623.7 / 1623.7 2249 / 2249
Output Total 895 / 895 600 / 600
Balance 728.7 / 728.7 1649 / 1649
[2024-09-22] MEDS: ZESTRIL 10 MG PO (14:09)
[2024-09-22 15:15] VITALS: BP 142/100
[2024-09-22] MEDS: LOVENOX 40 MG SC (17:13)
[2024-09-22 19:20] VITALS: BP 136/88
[2024-09-22] MEDS: LEVAQUIN 150 IV (21:00)
[2024-09-22 23:07] VITALS: BP 146/94
[2024-09-23] MEDS: FLAGYL 500 MG 100 IV ×3 (02:32→17:16)
[2024-09-23 03:15] VITALS: BP 131/83
[2024-09-23 07:06] LABS: % Basophils 0.6 % (0-2); % Immature Granulocytes 4.7 % (0-0.5); % Monocytes 4.3 % (1.7-9.3); % Neutrophils 80.4 % (42.2-75.2); Absolute Basophils 0.1 10^3/uL (0-0.2); Absolute Eosinophils 0.4 10^3/uL (0-0.7); Absolute Immature Granulocytes 0.9 10^3/uL (0-0.05); Absolute Lymphocytes 1.5 10^3/uL (1.2-3.4); Absolute Monocytes 0.8 10^3/uL (0.1-0.6); Absolute Neutrophils 15.3 10^3/uL (1.4-6.5); Hematocrit 32.4 % (37.0-47.0); Hemoglobin 10.8 g/dL (12.0-16.0); Mean Corp Hgb Conc. 33.3 g/dL (33.0-37.0); Mean Corpuscular Hgb 33.1 pg (27.0-31.0); Mean Corpuscular Volume 99.4 fL (81.0-99.0); Mean Platelet Volume 9.8 fL (7.4-10.4); Nucleated Red Blood Cells % 0 %; Platelet Count 198 10^3/uL (130-400); Red Blood Cell Count 3.26 10^6/uL (4.20-5.40); Red Cell Dist. Width 12.3 % (11.5-14.5); White Blood Cell Count 19.1 10^3/uL (4.8-10.8)
[2024-09-23 07:20] VITALS: BP 124/79
[2024-09-23 07:40] LABS: ALT (SGPT) 18 U/L (0-35); AST (SGOT) 24 U/L (14-36); Albumin 2.2 g/dl (3.5-5.0); Alkaline Phosphatase 43 U/L (38-126); Blood Urea Nitrogen 15 mg/dl (7-17); Calcium 7.3 mg/dl (8.4-10.2); Carbon Dioxide 25 mmol/L (22-30); Chloride 106 mmol/L (98-107); Estimated Creatinine Clearance 83 ml/min; Glucose 122 mg/dl (70-99); Magnesium 1.5 mg/dl (1.6-2.3); Phosphorus 1.9 mg/dl (2.5-4.5); Potassium 3.3 mmol/L (3.5-5.1); Sodium 137 mmol/L (135-145); Total Bilirubin 0.3 mg/dl (0.2-1.3); Total Protein 4.2 g/dl (6.3-8.2); eGFR > 60.00
[2024-09-23] MEDS: ZESTRIL 10 MG PO (07:50)
[2024-09-23] MEDS: PROTONIX IV 40 MG IV (07:50)
[2024-09-23] MEDS: NSS (PRESERVATIVE FREE) 10 ML IV (07:50)
[2024-09-23] MEDS: CARDIZEM CD 240 MG PO (07:50)
[2024-09-23] MEDS: VISBIOME 1 CAP PO (07:50)
[2024-09-23] MEDS: D5/0.9% SODIUM CHLORIDE IV ×2 (07:51→11:58)
[2024-09-23] MEDS: POTASSIUM PHOSPHATE 259.0909 MEQ IV (09:32)
[2024-09-23] MEDS: MAGNESIUM SULFATE 50 IV (09:33)
[2024-09-23 11:05] VITALS: BP 125/80
--- NOTE | 2024-09-23 11:34 | W.PN.HOSP.TC ---
Today's Communication/Plan
-
Monitor vital signs and see plan
Monitor leukocytosis
Rouse CT
Replete potassium
Replete phosphorus
Replete magnesium
Assessment / Plan
Assessment / Plan
General: Well Developed, Well Nourished and No Apparent Distress
HEENT: NormoCephalic
Respiratory: Clear
Cardiac: S1/S2 and Regular Rhythm; No Murmur or Rub
GI: soft
Musculoskeletal: no edema
Neuro: Nonfocal/grossly intact
Incarcerated right groin hernia with high-grade small bowel obstruction
-CT abdomen pelvis shows incarcerated right groin hernia continue loop of small bowel with associated high-grade small intestinal obstruction, transition point
Symptoms now slowly improving, discontinued NG tube 09/22. Started clears
-cwLevaquin/Flagyl
Surgery following,status post laparoscopic primary repair and open small bowel resection and anastomosis. Increasing leukocytosis, rouse CT ordered by surgery
hypovolemic shock likely 2/2 incarcerated hernia. shock resolved. Continue to monitor.
monitor urine output, now voiding
# Acute hypoxic respiratory failure secondary to bilateral lower lobe pneumonia
-Levaquin/Flagyl
continue to monitor; wean o2 as tolerated
denies chest pain
# Nonischemic myocardial injury in the setting of bowel obstruction/BOBY
-EKG shows sinus rhythm with frequent PVCs, PACs
-No chest pain at any time
Hypophosphatemia
Monitor; replete PRN
# QTc prolongation secondary to hypokalemia
resolved
Metabolic alkalosis
Monitor
Mild hypernatremia
Monitor
# Hypokalemia
# Acute kidney injury
-Creatinine of 2.4; now resolved
-Monitor with IV fluids
-Hold lisinopril
History of CVA
-Hold statin
Essential hypertension
-Restart diltiazem
-Restart lisinopril
hydralazine prn for now
Constipation history
-Hold stool softeners
Full code
DVT prophylaxis�SCDs, Lovenox
I spent a total of 51 minutes with the patient or on the floor. More than 50% of this time involved counseling and coordination of care.
Anticipated Discharge: > 48 hours
Subjective/Interval History
-
Date of Service: September 23, 2024
denies nausea
Objective Data
-
Labs:
Laboratory Results
09/23/24
06:21
WBC 19.1 H
Hgb 10.8 L
Hct 32.4 L
Plt Count 198
Sodium 137 D
Potassium 3.3 L
Chloride 106
Carbon Dioxide 25
BUN 15
Creatinine 0.6
Glucose 122 H
Calcium 7.3 L
Total Bilirubin 0.3
AST 24
ALT 18
Alkaline Phosphatase 43
Vital Signs:
Vital Signs
Temp Pulse Resp BP Pulse Ox
98.3 F 78 18 125/80 95
09/23/24 11:05 09/23/24 11:05 09/23/24 11:05 09/23/24 11:05 09/23/24 11:05
I&O
09/22/24 09/23/24 09/24/24
06:59 06:59 06:59
Intake Total 2249 / 2249 2650 / 2650
Output Total 600 / 600
Balance 1649 / 1649 2650 / 2650
[2024-09-23] MEDS: OMNIPAQUE 50 ML PO (11:55)
--- NOTE | 2024-09-23 12:01 | W.PN.GS2 ---
Addendum entered and electronically signed by Tone Ortiz MD 09/23/24 12:14:
I saw and examined the patient.
The Clock Maker's note was reviewed and I agree with the note.
Comment: Clinically improving and looks well. Misael diet and passing BMs/flatus. soft belly, Mild ttp focally to right mid abdomen. WBC trending up. Will proceed with CT A/P to rule out abscess
Original Note:
Today's Communication / Plan
-
Advance diet
Check CT a/p
Assessment / Plan
-
This is a 69-year-old female who presented to our hospital with an incarcerated femoral hernia with acute hypoxemia secondary to BL lower lobe pneumonia now POD#5 Lap right primary femoral hernia repair and open SBR.
Ileus resolving, passing flatus/stools now with marked improvement in distention
AFVSS
Leukocytosis persists and trending up, no fevers
Plan:
Continue ABX and trend labs
CT abd/pelvis to further evaluate causes of leukocytosis
Advance to LRD
Increase activity/PT & OT following. Encouraged patient to be up OOB
IS while awake
VTE ppx with sq lovenox and scds while in bed
Subjective Data
-
Date of Service: September 23, 2024
Patient seen and examined at bedside with Dr. Ortiz. Denies n/v. Tolerating liquids. Passing flatus and stools. Pain is minimal but still discomfort to the lower abdomen.
Objective Data
-
Intake and Output
09/22/24 09/23/24 09/24/24
06:59 06:59 06:59
Intake Total 2249 / 2249 2650 / 2650
Output Total 600 / 600
Balance 1649 / 1649 2650 / 2650
Intake:
Oral fluids 1440 / 1440
IV fluids (Total) 1500 / 1500 960 / 960
IV piggybacks 659 / 659 250 / 250
Amount instilled into GI Tube ( 90 / 90
Total)
Sullivan Sump 90 / 90
Output:
Gastrointestinal tube output ( 600 / 600
Total)
Sullivan Sump 600 / 600
Other:
Number of approximated SMALL 2 4
amounts of urine
Number of approximated MODERATE 3 1
amounts of urine
Vital Signs
Temp Pulse Resp BP Pulse Ox
98.3 F 78 18 125/80 95
09/23/24 11:05 09/23/24 11:05 09/23/24 11:05 09/23/24 11:05 09/23/24 11:05
Lab Results
09/23/24 06:21
09/23/24 06:21
Calcium 7.3 mg/dl (8.4-10.2) L 09/23/24 06:21
Phosphorus 1.9 mg/dl (2.5-4.5) L 09/23/24 06:21
Magnesium 1.5 mg/dl (1.6-2.3) L 09/23/24 06:21
Total Bilirubin 0.3 mg/dl (0.2-1.3) 09/23/24 06:21
AST 24 U/L (14-36) 09/23/24 06:21
ALT 18 U/L (0-35) 09/23/24 06:21
Alkaline Phosphatase 43 U/L (38-126) 09/23/24 06:21
Total Protein 4.2 g/dl (6.3-8.2) L 09/23/24 06:21
Albumin 2.2 g/dl (3.5-5.0) L 09/23/24 06:21
Physical Exam
-
GENERAL/NEURO: Awake, Alert, no distress
CHEST: Unlabored breathing
ABDOMEN: Soft, minimally tender to the RLQ, non-distended. Incisions with intact glue, well approximated without erythema. Midline incision with intact dressing.
[2024-09-23 15:10] VITALS: BP 117/78
[2024-09-23] MEDS: LOVENOX 40 MG SC (17:15)
[2024-09-23 19:39] VITALS: BP 118/73
[2024-09-23] MEDS: LEVAQUIN 150 IV (20:50)
[2024-09-23 23:03] VITALS: BP 109/75
[2024-09-24] MEDS: FLAGYL 500 MG 100 IV ×3 (02:32→19:56)
[2024-09-24 06:51] LABS: Hematocrit 33.5 % (37.0-47.0); Mean Corp Hgb Conc. 32.8 g/dL (33.0-37.0); Mean Corpuscular Hgb 32.4 pg (27.0-31.0); Mean Corpuscular Volume 98.5 fL (81.0-99.0); Mean Platelet Volume 9.7 fL (7.4-10.4); Platelet Count 217 10^3/uL (130-400); Red Cell Dist. Width 12.3 % (11.5-14.5); White Blood Cell Count 19.3 10^3/uL (4.8-10.8)
[2024-09-24 06:52] LABS: ALT (SGPT) 23 U/L (0-35); AST (SGOT) 30 U/L (14-36); Albumin 2.4 g/dl (3.5-5.0); Alkaline Phosphatase 44 U/L (38-126); Blood Urea Nitrogen 6 mg/dl (7-17); Calcium 7.5 mg/dl (8.4-10.2); Carbon Dioxide 26 mmol/L (22-30); Chloride 103 mmol/L (98-107); Estimated Creatinine Clearance 83 ml/min; Glucose 93 mg/dl (70-99); Magnesium 1.7 mg/dl (1.6-2.3); Phosphorus 2.3 mg/dl (2.5-4.5); Potassium 3.5 mmol/L (3.5-5.1); Sodium 133 mmol/L (135-145); Total Bilirubin 0.4 mg/dl (0.2-1.3); Total Protein 4.6 g/dl (6.3-8.2); eGFR > 60.00
[2024-09-24 07:45] VITALS: BP 118/74
[2024-09-24] MEDS: NSS (PRESERVATIVE FREE) 10 ML IV (08:41)
[2024-09-24] MEDS: VISBIOME 1 CAP PO (08:42)
[2024-09-24] MEDS: CARDIZEM CD 240 MG PO (08:42)
[2024-09-24] MEDS: ZESTRIL 10 MG PO (08:42)
[2024-09-24] MEDS: PROTONIX IV 40 MG IV (08:42)
[2024-09-24 08:51] LABS: % Basophils 0.4 % (0-2); % Monocytes 4.6 % (1.7-9.3); Absolute Basophils 0.1 10^3/uL (0-0.2); Absolute Eosinophils 0.4 10^3/uL (0-0.7); Absolute Immature Granulocytes 1.2 10^3/uL (0-0.05); Absolute Lymphocytes 1.5 10^3/uL (1.2-3.4); Absolute Monocytes 0.9 10^3/uL (0.1-0.6); Absolute Neutrophils 15.2 10^3/uL (1.4-6.5); Nucleated Red Blood Cells % 0 %
[2024-09-24] MEDS: SODIUM PHOSPHATE 255 MEQ IV (09:32)
[2024-09-24 11:10] VITALS: BP 125/79
--- NOTE | 2024-09-24 11:15 | W.PN.GS2 ---
Addendum entered and electronically signed by Tone Ortiz MD 09/24/24 11:29:
I saw and examined the patient.
The Commercial Credit Reviewer's note was reviewed and I agree with the note.
Comment: No clear source on CT for leukocytosis. She remains afebrile and clinically well. Her exam is softly distended without ttp. She is manjinder diet. No lines other than PIV. Wound without signs of infection. Will check CXR and UA.
Original Note:
Today's Communication / Plan
-
continue abx/labs
Assessment / Plan
-
This is a 69-year-old female who presented to our hospital with an incarcerated femoral hernia with acute hypoxemia secondary to BL lower lobe pneumonia now POD#6 Lap right primary femoral hernia repair and open SBR.
Good bowel function with +flatus/stool. Tolerating diet
AFVSS
Leukocytosis persists, no fevers
CT imaging without findings of abscess. Preop bowel obstruction was present with evidence of resolution although some distention persists. Contrast all the way through the colon.
Plan:
Continue ABX and trend labs
Continue LRD
Check CXR and UA
Increase activity/PT & OT following. Encouraged patient to be up OOB
IS while awake
VTE ppx with sq lovenox and scds while in bed
Subjective Data
-
Date of Service: September 24, 2024
Patient seen and examined at bedside with Dr. Ortiz. Denies n/v. tolerating diet and passing stools. Minimal post op discomfort to the RLQ.
Objective Data
-
Intake and Output
09/23/24 09/24/24 09/25/24
06:59 06:59 06:59
Intake Total 2650 / 2650 3130 / 3130
Balance 2650 / 2650 3130 / 3130
Intake:
Oral fluids 1440 / 1440 2880 / 2880
IV fluids (Total) 960 / 960
IV piggybacks 250 / 250 250 / 250
Other:
Number of approximated SMALL 4 1
amounts of urine
Number of approximated MODERATE 1 6
amounts of urine
Number of approximated LARGE 2
amounts of urine
Vital Signs
Temp Pulse Resp BP Pulse Ox
98.4 F 81 16 118/74 93
09/24/24 07:45 09/24/24 07:45 09/24/24 07:45 09/24/24 07:45 09/24/24 07:45
Lab Results
09/24/24 06:07
09/24/24 06:07
Calcium 7.5 mg/dl (8.4-10.2) L 09/24/24 06:07
Phosphorus 2.3 mg/dl (2.5-4.5) L 09/24/24 06:07
Magnesium 1.7 mg/dl (1.6-2.3) 09/24/24 06:07
Total Bilirubin 0.4 mg/dl (0.2-1.3) 09/24/24 06:07
AST 30 U/L (14-36) 09/24/24 06:07
ALT 23 U/L (0-35) 09/24/24 06:07
Alkaline Phosphatase 44 U/L (38-126) 09/24/24 06:07
Total Protein 4.6 g/dl (6.3-8.2) L 09/24/24 06:07
Albumin 2.4 g/dl (3.5-5.0) L 09/24/24 06:07
Physical Exam
-
GENERAL/NEURO: Awake, Alert, no distress
CHEST: Unlabored breathing
ABDOMEN: Soft, minimally tender to the RLQ, non-distended. Incisions with intact glue, well approximated without erythema.
--- NOTE | 2024-09-24 11:47 | W.PN.HOSP.TC ---
Today's Communication/Plan
-
Monitor vital signs see plan
Leukocytosis noted, currently without any signs of systemic infection
Check chest x-ray, UA
If continues to have leukocytosis then will have ID evaluation
PT/OT
Surgery following
Assessment / Plan
Assessment / Plan
General: Well Developed, Well Nourished and No Apparent Distress
HEENT: NormoCephalic
Respiratory: Clear
Cardiac: S1/S2 and Regular Rhythm; No Murmur or Rub
GI: soft
Musculoskeletal: no edema
Neuro: Nonfocal/grossly intact
Incarcerated right groin hernia with high-grade small bowel obstruction
-CT abdomen pelvis shows incarcerated right groin hernia continue loop of small bowel with associated high-grade small intestinal obstruction, transition point
Symptoms now slowly improving, discontinued NG tube 09/22. Started clears
-cwLevaquin/Flagyl
Surgery following,status post laparoscopic primary repair and open small bowel resection and anastomosis. Increasing leukocytosis,AB/pelvis CT noted, check CXR, ua. If leukocytosis do not improve then will need ID evaluation.
hypovolemic shock likely 2/2 incarcerated hernia. shock resolved. Continue to monitor.
monitor urine output, now voiding
# Acute hypoxic respiratory failure secondary to bilateral lower lobe pneumonia
-cw Levaquin/Flagyl
continue to monitor; wean o2 as tolerated
denies chest pain
# Nonischemic myocardial injury in the setting of bowel obstruction/BOBY
-EKG shows sinus rhythm with frequent PVCs, PACs
-No chest pain at any time
Hypophosphatemia
Monitor; replete PRN
# QTc prolongation secondary to hypokalemia
resolved
Metabolic alkalosis
Monitor
Hyponatremia
Monitor
# Hypokalemia
# Acute kidney injury
-Creatinine of 2.4; now resolved
-Monitor with IV fluids
-Hold lisinopril
History of CVA
-Hold statin
Essential hypertension
-Restart diltiazem
-Restart lisinopril
hydralazine prn for now
Constipation history
-Hold stool softeners
Full code
DVT prophylaxis�SCDs, Lovenox
I spent a total of 52 minutes with the patient or on the floor. More than 50% of this time involved counseling and coordination of care.
Anticipated Discharge: > 48 hours
Subjective/Interval History
-
Date of Service: September 24, 2024
denies pain
Objective Data
-
Labs:
Laboratory Results
09/24/24
06:07
WBC 19.3 H
Hgb 11.0 L
Hct 33.5 L
Plt Count 217
Sodium 133 L
Potassium 3.5
Chloride 103
Carbon Dioxide 26
BUN 6 L
Creatinine 0.6
Glucose 93
Calcium 7.5 L
Total Bilirubin 0.4
AST 30
ALT 23
Alkaline Phosphatase 44
Vital Signs:
Vital Signs
Temp Pulse Resp BP Pulse Ox
98.1 F 76 16 125/79 98
09/24/24 11:10 09/24/24 11:10 09/24/24 11:10 09/24/24 11:10 09/24/24 11:10
I&O
09/23/24 09/24/24 09/25/24
06:59 06:59 06:59
Intake Total 2650 / 2650 3130 / 3130
Balance 2650 / 2650 3130 / 3130
[2024-09-24 12:01] LABS: Urine Albumin Negative (Neg - Trace); Urine Bilirubin Negative (Negative); Urine Character Clear (Clear); Urine Color Yellow; Urine Glucose Negative (Negative); Urine Ketone Negative (Negative); Urine Leukocyte Negative (Negative); Urine Nitrite Negative (Negative); Urine Occult Blood Negative (Negative); Urine Urobilinogen Negative (Neg - 1+)
[2024-09-24 15:13] VITALS: BP 127/69
[2024-09-24] MEDS: LOVENOX 40 MG SC (18:00)
[2024-09-24 19:23] VITALS: BP 115/76
[2024-09-24] MEDS: LEVAQUIN 150 IV (21:15)
[2024-09-24 23:09] VITALS: BP 112/79
[2024-09-25] MEDS: FLAGYL 500 MG 100 IV ×3 (02:52→17:27)
[2024-09-25 03:22] VITALS: BP 107/71
[2024-09-25 06:43] LABS: Hematocrit 32.2 % (37.0-47.0); Mean Corp Hgb Conc. 34.2 g/dL (33.0-37.0); Mean Corpuscular Hgb 33.3 pg (27.0-31.0); Mean Corpuscular Volume 97.6 fL (81.0-99.0); Mean Platelet Volume 9.6 fL (7.4-10.4); Platelet Count 247 10^3/uL (130-400); Red Cell Dist. Width 12.4 % (11.5-14.5); White Blood Cell Count 18.6 10^3/uL (4.8-10.8)
[2024-09-25 06:57] LABS: ALT (SGPT) 24 U/L (0-35); AST (SGOT) 33 U/L (14-36); Albumin 2.4 g/dl (3.5-5.0); Alkaline Phosphatase 40 U/L (38-126); Blood Urea Nitrogen 8 mg/dl (7-17); Calcium 7.6 mg/dl (8.4-10.2); Carbon Dioxide 23 mmol/L (22-30); Chloride 104 mmol/L (98-107); Estimated Creatinine Clearance 83 ml/min; Glucose 90 mg/dl (70-99); Magnesium 1.6 mg/dl (1.6-2.3); Phosphorus 2.6 mg/dl (2.5-4.5); Sodium 133 mmol/L (135-145); Total Bilirubin 0.4 mg/dl (0.2-1.3); Total Protein 4.7 g/dl (6.3-8.2); eGFR > 60.00
[2024-09-25 08:00] VITALS: BP 124/80
[2024-09-25 08:04] LABS: % Basophils 0.5 % (0-2); % Eosinophils 1.4 % (0-6); % Immature Granulocytes 5.9 % (0-0.5); % Lymphocytes 7.8 % (20.5-51.1); % Monocytes 4.4 % (1.7-9.3); Absolute Basophils 0.1 10^3/uL (0-0.2); Absolute Eosinophils 0.3 10^3/uL (0-0.7); Absolute Immature Granulocytes 1.1 10^3/uL (0-0.05); Absolute Lymphocytes 1.5 10^3/uL (1.2-3.4); Absolute Monocytes 0.8 10^3/uL (0.1-0.6); Absolute Neutrophils 14.9 10^3/uL (1.4-6.5); Nucleated Red Blood Cells % 0 %
[2024-09-25] MEDS: CARDIZEM CD 240 MG PO (08:43)
[2024-09-25] MEDS: VISBIOME 1 CAP PO (08:43)
[2024-09-25] MEDS: NSS (PRESERVATIVE FREE) 10 ML IV (08:43)
[2024-09-25] MEDS: PROTONIX IV 40 MG IV (08:43)
[2024-09-25] MEDS: ZESTRIL 10 MG PO (08:43)
--- NOTE | 2024-09-25 10:05 | W.PN.GS2 ---
Today's Communication / Plan
-
continue abx/trend labs
Assessment / Plan
-
This is a 69-year-old female who presented to our hospital with an incarcerated femoral hernia with acute hypoxemia secondary to BL lower lobe pneumonia now POD#7 Lap right primary femoral hernia repair and open SBR.
Good bowel function with +flatus/stool. Tolerating diet
AFVSS
Leukocytosis persists with slight downtrend, no fevers
09/23 CT imaging without findings of abscess. Bowel distention is present, but contrast all the way through to the colon.
09/24 CXR with improving bibasilar infiltrates, continued on abx for ?aspiration pna
UA negative
Plan:
Continue ABX and trend labs
Continue LRD
Increase activity/PT & OT following. Encouraged patient to be up OOB
IS while awake
VTE ppx with sq lovenox and scds while in bed
Subjective Data
-
Date of Service: September 25, 2024
Patient seen and examined at bedside with Dr. Fletcher. Sitting up at side of bed and having breakfast at time of exam. Denies n/v. Passing flatus and stools. Pain continues to improve.
Objective Data
-
Intake and Output
09/24/24 09/25/24 09/26/24
06:59 06:59 06:59
Intake Total 3130 / 3130 3235 / 3235
Balance 3130 / 3130 3235 / 3235
Intake:
Oral fluids 2880 / 2880 2880 / 2880
IV piggybacks 250 / 250 355 / 355
Other:
Number of approximated SMALL 1 2
amounts of urine
Number of approximated MODERATE 6 7
amounts of urine
Number of approximated LARGE 2 3
amounts of urine
Vital Signs
Temp Pulse Resp BP Pulse Ox
98.1 F 78 20 124/80 95
09/25/24 08:00 09/25/24 08:00 09/25/24 08:00 09/25/24 08:43 09/25/24 08:00
Lab Results
09/25/24 05:55
09/25/24 05:55
Calcium 7.6 mg/dl (8.4-10.2) L 09/25/24 05:55
Phosphorus 2.6 mg/dl (2.5-4.5) 09/25/24 05:55
Magnesium 1.6 mg/dl (1.6-2.3) 09/25/24 05:55
Total Bilirubin 0.4 mg/dl (0.2-1.3) 09/25/24 05:55
AST 33 U/L (14-36) 09/25/24 05:55
ALT 24 U/L (0-35) 09/25/24 05:55
Alkaline Phosphatase 40 U/L (38-126) 09/25/24 05:55
Total Protein 4.7 g/dl (6.3-8.2) L 09/25/24 05:55
Albumin 2.4 g/dl (3.5-5.0) L 09/25/24 05:55
Physical Exam
-
GENERAL/NEURO: Awake, Alert, no distress
CHEST: Unlabored breathing
ABDOMEN: Soft, minimally tender near upper midline incision, mildly distended. Incisions with intact glue, well approximated without erythema.
--- NOTE | 2024-09-25 10:16 | CM ---
Reviewed the chart notes and spoke with the patient at the bedside. Patient reports to care for her ailing mother and feels she will not be able to do if she did not go to SNF. Patient ambulating 150 feet with supervision while using a walker.
Explained to the patient she would not qualify for SNF due to distance she is able to walk and supervision level of support. Offered VN services. Patient will speak with her brother regarding VN services.
CM continues to be available to patient/family and is monitoring medical plan for needs at discharge.
Plan: Discharge to home with VN services if the patient is agreeable.
--- NOTE | 2024-09-25 11:16 | W.PN.HOSP.TC ---
Today's Communication/Plan
-
Monitor vital signs
see plan
Diet per surgery
Continue to monitor leukocytosis
Continue with current antibiotics
PT/OT
Assessment / Plan
Assessment / Plan
General: Well Developed, Well Nourished and No Apparent Distress
HEENT: NormoCephalic
Respiratory: Clear
Cardiac: S1/S2 and Regular Rhythm; No Murmur or Rub
GI: soft
Musculoskeletal: no edema
Neuro: Nonfocal/grossly intact
Incarcerated right groin hernia with high-grade small bowel obstruction
-CT abdomen pelvis shows incarcerated right groin hernia continue loop of small bowel with associated high-grade small intestinal obstruction, transition point
Symptoms now slowly improving, discontinued NG tube 09/22. Started regular diet
-cwLevaquin/Flagyl
Surgery following,status post laparoscopic primary repair and open small bowel resection and anastomosis. Increasing leukocytosis,AB/pelvis CT noted, CXR with possible PNA which we know, ua without UTI. If leukocytosis do not improve then will
need ID evaluation.
hypovolemic shock likely 2/2 incarcerated hernia. shock resolved. Continue to monitor.
monitor urine output, now voiding
# Acute hypoxic respiratory failure secondary to bilateral lower lobe pneumonia
suspect could be underlying aspiration pneumonia
-cw Levaquin/Flagyl
continue to monitor; wean o2 as tolerated
denies chest pain
continue to trend leukocytosis
# Nonischemic myocardial injury in the setting of bowel obstruction/BOBY
-EKG shows sinus rhythm with frequent PVCs, PACs
-No chest pain at any time
Hypophosphatemia
Monitor; replete PRN
# QTc prolongation secondary to hypokalemia
resolved
Metabolic alkalosis
Monitor
Hyponatremia
Monitor
# Hypokalemia
# Acute kidney injury
-Creatinine of 2.4; now resolved
-Monitor with IV fluids
-Hold lisinopril
History of CVA
-Hold statin
Essential hypertension
-Restart diltiazem
-Restart lisinopril
hydralazine prn for now
Constipation history
-Hold stool softeners
Full code
DVT prophylaxis�SCDs, Lovenox
Anticipated Discharge: 24 - 48 hours
Subjective/Interval History
-
Date of Service: September 25, 2024
denies cough
Objective Data
-
Labs:
Laboratory Results
09/25/24
05:55
WBC 18.6 H
Hgb 11.0 L
Hct 32.2 L
Plt Count 247
Sodium 133 L
Potassium 4.0
Chloride 104
Carbon Dioxide 23
BUN 8
Creatinine 0.6
Glucose 90
Calcium 7.6 L
Total Bilirubin 0.4
AST 33
ALT 24
Alkaline Phosphatase 40
Vital Signs:
Vital Signs
Temp Pulse Resp BP Pulse Ox
98.1 F 78 20 124/80 95
09/25/24 08:00 09/25/24 08:00 09/25/24 08:00 09/25/24 08:43 09/25/24 08:00
I&O
09/24/24 09/25/24 09/26/24
06:59 06:59 06:59
Intake Total 3130 / 3130 3235 / 3235
Balance 3130 / 3130 3235 / 3235
[2024-09-25 12:00] VITALS: BP 120/76
[2024-09-25 12:24] VITALS: BP 120/76; PULSE 95; O2SAT 96
[2024-09-25 16:00] VITALS: BP 117/74
[2024-09-25] MEDS: LOVENOX 40 MG SC (17:26)
[2024-09-25] MEDS: LEVAQUIN 150 IV (19:46)
[2024-09-25] MEDS: FLUSH (NSS) 1 FLUSH IV (19:46)
[2024-09-25] MEDS: COLACE 100 MG PO (19:51)
[2024-09-25 22:27] VITALS: BP 103/63
[2024-09-26] MEDS: FLUSH (NSS) 1 FLUSH IV (02:14)
[2024-09-26] MEDS: FLAGYL 500 MG 100 IV ×3 (02:14→17:03)
--- NOTE | 2024-09-26 05:43 | PTCARENOTE ---
Patient ambulated around 2S and 2 N units with RW x 2 this shift.
[2024-09-26 07:30] LABS: ALT (SGPT) 27 U/L (0-35); AST (SGOT) 35 U/L (14-36); Albumin 2.3 g/dl (3.5-5.0); Alkaline Phosphatase 41 U/L (38-126); Blood Urea Nitrogen 9 mg/dl (7-17); Calcium 7.9 mg/dl (8.4-10.2); Carbon Dioxide 26 mmol/L (22-30); Chloride 105 mmol/L (98-107); Estimated Creatinine Clearance 83 ml/min; Glucose 85 mg/dl (70-99); Magnesium 1.5 mg/dl (1.6-2.3); Phosphorus 2.8 mg/dl (2.5-4.5); Potassium 4.2 mmol/L (3.5-5.1); Sodium 135 mmol/L (135-145); Total Bilirubin 0.3 mg/dl (0.2-1.3); Total Protein 4.4 g/dl (6.3-8.2); eGFR > 60.00
--- NOTE | 2024-09-26 07:46 | W.PN.GS2 ---
Today's Communication / Plan
-
-- Continue ABX and trend labs
-- Continue LRD
Assessment / Plan
-
This is a 69-year-old female who presented to our hospital with an incarcerated femoral hernia with acute hypoxemia secondary to BL lower lobe pneumonia now POD#8 s/p lap right primary femoral hernia repair and open SBR.
Good bowel function with +flatus/stool. Tolerating diet. Does have some bloating and abdominal distension.
AFVSS
Leukocytosis persists with slight downtrend, pending for today, no fevers
09/23 CT imaging without findings of abscess. Bowel distention is present, but contrast all the way through to the colon.
09/24 CXR with improving bibasilar infiltrates, continued on abx for ?aspiration pna
UA negative
Plan:
-- Continue ABX and trend labs
-- Continue LRD
-- Increase activity/PT & OT following. Encouraged patient to be up OOB
-- IS while awake
-- VTE ppx with sq lovenox and scds while in bed
Subjective Data
-
Date of Service: September 26, 2024
No major complaints. Reports bloating and abdominal distension more then baseline. Denies abdominal pain. No nausea or emesis. Passing flatus and BMs. Ambulating with assistance of walker. No urinary symptoms.
Objective Data
-
Intake and Output
09/25/24 09/26/24 09/27/24
06:59 06:59 06:59
Intake Total 3235 / 3235 911 / 911
Balance 3235 / 3235 911 / 911
Intake:
Oral fluids 2880 / 2880 660 / 660
IV fluids (Total)
IV piggybacks 355 / 355 250 / 250
Other:
Number of approximated SMALL 2
amounts of urine
Number of approximated MODERATE 7 1
amounts of urine
Number of approximated LARGE 3
amounts of urine
Vital Signs
Temp Pulse Resp BP Pulse Ox
98.5 F 83 18 103/63 95
09/25/24 22:27 09/25/24 22:27 09/25/24 22:27 09/25/24 22:27 09/25/24 22:27
Lab Results
09/26/24 06:10
Calcium 7.9 mg/dl (8.4-10.2) L 09/26/24 06:10
Phosphorus 2.8 mg/dl (2.5-4.5) 09/26/24 06:10
Magnesium 1.5 mg/dl (1.6-2.3) L 09/26/24 06:10
Total Bilirubin 0.3 mg/dl (0.2-1.3) 09/26/24 06:10
AST 35 U/L (14-36) 09/26/24 06:10
ALT 27 U/L (0-35) 09/26/24 06:10
Alkaline Phosphatase 41 U/L (38-126) 09/26/24 06:10
Total Protein 4.4 g/dl (6.3-8.2) L 09/26/24 06:10
Albumin 2.3 g/dl (3.5-5.0) L 09/26/24 06:10
Physical Exam
-
Gen: NAD
Abd: soft, NT, moderate distension, non-peritoneal, incisions c/d/i - no erythema, ecchymosis or drainage, no palpable inguinal hernia or seroma
[2024-09-26 07:47] LABS: % Basophils 0.4 % (0-2); % Immature Granulocytes 4.5 % (0-0.5); % Lymphocytes 8.8 % (20.5-51.1); % Monocytes 6.3 % (1.7-9.3); Absolute Basophils 0.1 10^3/uL (0-0.2); Absolute Eosinophils 0.2 10^3/uL (0-0.7); Absolute Immature Granulocytes 0.7 10^3/uL (0-0.05); Absolute Lymphocytes 1.4 10^3/uL (1.2-3.4); Absolute Neutrophils 12.5 10^3/uL (1.4-6.5); Hematocrit 30.7 % (37.0-47.0); Hemoglobin 10.5 g/dL (12.0-16.0); Mean Corp Hgb Conc. 34.2 g/dL (33.0-37.0); Mean Corpuscular Hgb 33.2 pg (27.0-31.0); Mean Corpuscular Volume 97.2 fL (81.0-99.0); Mean Platelet Volume 9.6 fL (7.4-10.4); Nucleated Red Blood Cells % 0 %; Platelet Count 309 10^3/uL (130-400); Red Blood Cell Count 3.16 10^6/uL (4.20-5.40); Red Cell Dist. Width 12.3 % (11.5-14.5); White Blood Cell Count 15.8 10^3/uL (4.8-10.8)
[2024-09-26 08:37] VITALS: BP 131/81
[2024-09-26 09:11] VITALS: BP 131/83
[2024-09-26] MEDS: CARDIZEM CD 240 MG PO (09:26)
[2024-09-26] MEDS: COLACE 100 MG PO ×2 (09:26→19:52)
[2024-09-26] MEDS: VISBIOME 1 CAP PO (09:26)
[2024-09-26] MEDS: ZESTRIL 10 MG PO (09:26)
[2024-09-26] MEDS: NSS (PRESERVATIVE FREE) 10 ML IV (09:26)
[2024-09-26] MEDS: MAGNESIUM SULFATE 50 IV (09:27)
[2024-09-26] MEDS: PROTONIX IV 40 MG IV (09:27)
--- NOTE | 2024-09-26 11:22 | W.PN.HOSP.TC ---
Today's Communication/Plan
-
Monitor vital signs see plan
Continue with antibiotics
Monitor leukocytosis
Encourage ambulation
Hopeful DC soon
Assessment / Plan
Assessment / Plan
General: Well Developed, Well Nourished and No Apparent Distress
HEENT: NormoCephalic
Respiratory: Clear
Cardiac: S1/S2 and Regular Rhythm; No Murmur or Rub
GI: soft
Musculoskeletal: no edema
Neuro: Nonfocal/grossly intact
Incarcerated right groin hernia with high-grade small bowel obstruction
-CT abdomen pelvis shows incarcerated right groin hernia continue loop of small bowel with associated high-grade small intestinal obstruction, transition point
Symptoms now slowly improving, discontinued NG tube 09/22. Started regular diet
-cwLevaquin/Flagyl
Surgery following,status post laparoscopic primary repair and open small bowel resection and anastomosis. Increasing leukocytosis,AB/pelvis CT noted, CXR with possible PNA which we know, ua without UTI. If leukocytosis do not improve then will
need ID evaluation.
hypovolemic shock likely 2/2 incarcerated hernia. shock resolved. Continue to monitor.
monitor urine output, now voiding
# Acute hypoxic respiratory failure secondary to bilateral lower lobe pneumonia
suspect could be underlying aspiration pneumonia
-cw Levaquin/Flagyl
continue to monitor; wean o2 as tolerated
denies chest pain
continue to trend leukocytosis
# Nonischemic myocardial injury in the setting of bowel obstruction/BOBY
-EKG shows sinus rhythm with frequent PVCs, PACs
-No chest pain at any time
Hypophosphatemia
Monitor; replete PRN
# QTc prolongation secondary to hypokalemia
resolved
Metabolic alkalosis
Monitor
Hyponatremia
Monitor
# Hypokalemia
# Acute kidney injury
-Creatinine of 2.4; now resolved
-isinopril rstarted
History of CVA
-Hold statin
Essential hypertension
-Restart diltiazem
-Restart lisinopril
hydralazine prn for now
Constipation history
-Hold stool softeners
Full code
DVT prophylaxis�SCDs, Lovenox
Anticipated Discharge: Within 24 hours
Subjective/Interval History
-
Date of Service: September 26, 2024
denies pain
Objective Data
-
Labs:
Laboratory Results
09/26/24
06:10
WBC 15.8 H
Hgb 10.5 L
Hct 30.7 L
Plt Count 309 D
Sodium 135
Potassium 4.2
Chloride 105
Carbon Dioxide 26
BUN 9
Creatinine 0.6
Glucose 85
Calcium 7.9 L
Total Bilirubin 0.3
AST 35
ALT 27
Alkaline Phosphatase 41
Vital Signs:
Vital Signs
Temp Pulse Resp BP Pulse Ox
97.7 F 82 20 131/81 97
09/26/24 08:37 09/26/24 08:37 09/26/24 08:37 09/26/24 08:37 09/26/24 08:37
I&O
09/25/24 09/26/24 09/27/24
06:59 06:59 06:59
Intake Total 3235 / 3235 911 / 911
Balance 3235 / 3235 911 / 911
[2024-09-26 15:29] VITALS: BP 115/80
[2024-09-26] MEDS: LOVENOX 40 MG SC (17:03)
[2024-09-26] MEDS: LEVAQUIN 150 IV (20:22)
[2024-09-26 23:04] VITALS: BP 112/69
[2024-09-27] MEDS: FLAGYL 500 MG 100 IV ×2 (01:51→09:29)
[2024-09-27 07:52] VITALS: BP 133/90
[2024-09-27 08:15] LABS: % Basophils 0.5 % (0-2); % Immature Granulocytes 3.4 % (0-0.5); % Lymphocytes 7.9 % (20.5-51.1); % Monocytes 6.6 % (1.7-9.3); % Neutrophils 80.6 % (42.2-75.2); Absolute Basophils 0.1 10^3/uL (0-0.2); Absolute Eosinophils 0.2 10^3/uL (0-0.7); Absolute Immature Granulocytes 0.5 10^3/uL (0-0.05); Absolute Lymphocytes 1.2 10^3/uL (1.2-3.4); Absolute Neutrophils 12.4 10^3/uL (1.4-6.5); Hematocrit 33.6 % (37.0-47.0); Hemoglobin 11.5 g/dL (12.0-16.0); Mean Corp Hgb Conc. 34.2 g/dL (33.0-37.0); Mean Corpuscular Hgb 32.7 pg (27.0-31.0); Mean Corpuscular Volume 95.5 fL (81.0-99.0); Mean Platelet Volume 9.1 fL (7.4-10.4); Nucleated Red Blood Cells % 0 %; Platelet Count 398 10^3/uL (130-400); Red Blood Cell Count 3.52 10^6/uL (4.20-5.40); Red Cell Dist. Width 12.6 % (11.5-14.5); White Blood Cell Count 15.4 10^3/uL (4.8-10.8)
[2024-09-27 08:34] LABS: ALT (SGPT) 29 U/L (0-35); AST (SGOT) 35 U/L (14-36); Albumin 2.8 g/dl (3.5-5.0); Alkaline Phosphatase 51 U/L (38-126); Blood Urea Nitrogen 8 mg/dl (7-17); Calcium 8.1 mg/dl (8.4-10.2); Carbon Dioxide 26 mmol/L (22-30); Chloride 101 mmol/L (98-107); Estimated Creatinine Clearance 83 ml/min; Glucose 82 mg/dl (70-99); Magnesium 1.8 mg/dl (1.6-2.3); Sodium 134 mmol/L (135-145); Total Bilirubin 0.4 mg/dl (0.2-1.3); Total Protein 5.2 g/dl (6.3-8.2); eGFR > 60.00
--- NOTE | 2024-09-27 08:53 | W.PN.GS2 ---
Today's Communication / Plan
-
OK for DC
Assessment / Plan
-
This is a 69-year-old female who presented to our hospital with an incarcerated femoral hernia with acute hypoxemia secondary to BL lower lobe pneumonia now POD#9 s/p lap right primary femoral hernia repair and open SBR.
Good bowel function with +flatus/stool. Tolerating diet. Does have some bloating and abdominal distension.
AFVSS
Leukocytosis persists with slight downtrend, pending for today, no fevers
09/23 CT imaging without findings of abscess. Bowel distention is present, but contrast all the way through to the colon.
09/24 CXR with improving bibasilar infiltrates, continued on abx for ?aspiration pna
UA negative
WBC trending down
Plan:
-- OK for DC from surgical standopoint
-- Defer to Hospitalist on further abx for PNA, no need from abdominal standpoint
-- Continue LRD
-- Increase activity/PT & OT following. Encouraged patient to be up OOB
-- IS while awake
-- VTE ppx with sq lovenox and scds while in bed
Subjective Data
-
Date of Service: September 27, 2024
AFVSS, feels well, no complaints, passing flatus and BM, manjinder diet
Objective Data
-
Intake and Output
09/26/24 09/27/24 09/28/24
06:59 06:59 06:59
Intake Total 911 / 911 1770 / 177
Balance 911 / 911 1769 / 177
Intake:
Oral fluids 660 / 660 1320 / 1320
IV fluids (Total)
IV piggybacks 250 / 250 450 / 450
Other:
Number of approximated MODERATE 1 1
amounts of urine
Vital Signs
Temp Pulse Resp BP Pulse Ox
98.5 F 98 20 133/90 94
09/27/24 07:52 09/27/24 07:52 09/27/24 07:52 09/27/24 07:52 09/27/24 07:52
Lab Results
09/27/24 06:44
09/27/24 06:44
Calcium 8.1 mg/dl (8.4-10.2) L 09/27/24 06:44
Phosphorus 3.0 mg/dl (2.5-4.5) 09/27/24 06:44
Magnesium 1.8 mg/dl (1.6-2.3) 09/27/24 06:44
Total Bilirubin 0.4 mg/dl (0.2-1.3) 09/27/24 06:44
AST 35 U/L (14-36) 09/27/24 06:44
ALT 29 U/L (0-35) 09/27/24 06:44
Alkaline Phosphatase 51 U/L (38-126) 09/27/24 06:44
Total Protein 5.2 g/dl (6.3-8.2) L 09/27/24 06:44
Albumin 2.8 g/dl (3.5-5.0) L 09/27/24 06:44
Physical Exam
-
Gen: NAD
Abd: soft, mild distention, incisions cdi
--- NOTE | 2024-09-27 09:07 | W.PN.HOSP.TC ---
Addendum entered and electronically signed by Jimmie Kilpatrick MD 09/27/24 09:12:
Correction: Patient has gotten enough days of antibiotics. No antibiotics on discharge. Repeat CBC next week
Original Note:
Today's Communication/Plan
-
Monitor vital signs see plan
Leukocytosis improving, repeat CBC next week with primary care provider
Continue antibiotics for few more days on discharge
Discussed with surgery, discharge today
Time of discharge 38 minutes
Assessment / Plan
Assessment / Plan
General: Well Developed, Well Nourished and No Apparent Distress
HEENT: NormoCephalic
Respiratory: Clear
Cardiac: S1/S2 and Regular Rhythm; No Murmur or Rub
GI: soft
Musculoskeletal: no edema
Neuro: Nonfocal/grossly intact
Incarcerated right groin hernia with high-grade small bowel obstruction
-CT abdomen pelvis shows incarcerated right groin hernia continue loop of small bowel with associated high-grade small intestinal obstruction, transition point
Symptoms now slowly improving, discontinued NG tube 09/22. Started regular diet
-cwLevaquin/Flagyl
Surgery following,status post laparoscopic primary repair and open small bowel resection and anastomosis. Increasing leukocytosis,AB/pelvis CT noted, CXR with possible PNA which we know, ua without UTI. If leukocytosis do not improve then will
need ID evaluation.Leukocytosis now improving. Repeat CBC next week with PCP
hypovolemic shock likely 2/2 incarcerated hernia. shock resolved. Continue to monitor.
monitor urine output, now voiding
# Acute hypoxic respiratory failure secondary to bilateral lower lobe pneumonia
suspect could be underlying aspiration pneumonia
-cw Levaquin/Flagyl
continue to monitor; wean o2 as tolerated, Now on room air
denies chest pain
continue to trend leukocytosis
# Nonischemic myocardial injury in the setting of bowel obstruction/BOBY
-EKG shows sinus rhythm with frequent PVCs, PACs
-No chest pain at any time
Hypophosphatemia
Monitor; replete PRN
# QTc prolongation secondary to hypokalemia
resolved
Metabolic alkalosis
Monitor
Hyponatremia
Monitor
# Hypokalemia
# Acute kidney injury
-Creatinine of 2.4; now resolved
-lisinopril restarted
History of CVA
-Hold statin
Essential hypertension
-Restart diltiazem
-Restart lisinopril
hydralazine prn for now
Constipation history
-Hold stool softeners
Full code
DVT prophylaxis�SCDs, Lovenox
Anticipated Discharge: Today
Subjective/Interval History
-
Date of Service: September 27, 2024
Denies pain
Objective Data
-
Labs:
Laboratory Results
09/27/24
06:44
WBC 15.4 H
Hgb 11.5 L
Hct 33.6 L
Plt Count 398 D
Sodium 134 L
Potassium 4.0
Chloride 101
Carbon Dioxide 26
BUN 8
Creatinine 0.6
Glucose 82
Calcium 8.1 L
Total Bilirubin 0.4
AST 35
ALT 29
Alkaline Phosphatase 51
Vital Signs:
Vital Signs
Temp Pulse Resp BP Pulse Ox
98.5 F 98 20 133/90 94
09/27/24 07:52 09/27/24 07:52 09/27/24 07:52 09/27/24 07:52 09/27/24 07:52
I&O
09/26/24 09/27/24 09/28/24
06:59 06:59 06:59
Intake Total 911 / 911 0 / 1770
Balance 911 / 911 1770 / 1770
--- NOTE | 2024-09-27 09:12 | W.DCSUMMARY ---
Discharge Summary
Discharge Data
Date of Admission: 09/18/24
Date of Discharge: 09/27/24
-
Pending Results: No
Hospital Course
69-year-old female with past medical history of CVA, hypertension, hyperlipidemia came to the hospital for abdominal pain known to have incarcerated right groin hernia with high-grade small bowel obstruction. Patient was taken to the OR by general
surgery for laparoscopic primary repair and open small bowel resection and anastomosis. While patient was in the hospital she also developed pneumonia which was treated with antibiotics. Patient finished antibiotics prior to discharge. Over time
patient symptoms continue to improve and she was able to tolerate regular diet prior to discharge. She also had acute hypoxic respiratory failure secondary pneumonia which was resolved prior to discharge. She did had persistent leukocytosis which
continue to improve over time. She was instructed to get CBC next week with primary care provider. Since patient was able to tolerate diet and she was feeling better, she was then discharged home with instructions to follow-up with all her
physicians outpatient.
Discharge Plan
-
Patient Disposition: Home with Home Care
Discharge Diagnosis/Procedures: Incarcerated right groin hernia with high-grade small bowel obstruction
Acute hypoxic respiratory failure secondary to bilateral lower lobe pneumonia
Diet: Low Fiber
Activity: No strenuous activity
Additional Activity: Do not lift over 15 lbs for the next 4-6 weeks
Bathing Restrictions: OK to Shower
Blood Work: CBC next week with primary care provider
Others Tests: Repeat chest x-ray in 4 to 6 weeks
Wound Care: Ok to wash your incisions gently with soap and water. Call your surgeon if you notice increasing redness around your incisions.
Referrals:
Laureen Rodriguez MD [Family Provider] - in less than 1 week
Mehul Fletcher MD [Active] - in two to three weeks
Prescriptions:
New
pantoprazole [Protonix] 40 mg tablet,delayed release (DR/EC)
40 mg PO DAILY Qty: 30 0RF
Continued
diltiazem HCl 240 mg Capsule,Extended Release 24 Hr
240 mg PO DAILY
polyethylene glycol 3350 [Miralax] 17 gram Powder In Packet
17 g PO DAILY
lovastatin 10 mg Tablet
10 mg PO DAILY
cyanocobalamin (vitamin B-12) 500 mcg Tablet
500 mcg PO DAILY
lisinopril 10 mg Tablet
10 mg PO DAILY
calcium polycarbophil [FiberCon] 625 mg Tablet
625 mg PO DAILY
docusate sodium [Colace] 100 mg Capsule
100 mg PO BID Qty: 0 0RF
Discharge Orders:
Discharge Patient (As Directed); Ordered 09/27/24
Ordered By: Jimmie Kilpatrick
Discharge Date and Time
Discharge Date/Time: 09/27/24 12:20
Print Language: LITHUANIAN
[2024-09-27] MEDS: NSS (PRESERVATIVE FREE) 10 ML IV (09:30)
[2024-09-27] MEDS: PROTONIX IV 40 MG IV (09:30)
[2024-09-27] MEDS: CARDIZEM CD 240 MG PO (09:31)
[2024-09-27] MEDS: VISBIOME 1 CAP PO (09:31)
[2024-09-27] MEDS: COLACE 100 MG PO (09:31)
[2024-09-27] MEDS: ZESTRIL 10 MG PO (09:31)
--- NOTE | 2024-09-27 10:13 | CM ---
Patient seen at bedside.
IMM explained & signed. In chart
Accepted [facility] - Notified [facility] liaison
Referral in [facility].
PLAN: home, [facility]
brother to transport
--- NOTE | 2024-09-27 10:16 | VNURNOTE ---
Home Health Liaison met with patient at bedside to discuss [facility] nurse/therapy, visits, schedule and homebound status. Patient is agreeable and understands that visits at home will be 2-3 x per week to assess and teach medical management. [facility]
brochure provided with contact information. Patient is aware that [facility] will contact them for start of care in 1-2 days after discharge from .
[facility] referral completed in [facility].
[2024-09-27 11:08] VITALS: BP 121/81
== END 2024-09-27 12:20 | disposition home health service (06) | DRG 329 ==
LOC: 2 SOUTH 14:18
PROVIDERS: Nurse Practitioner Family; Physician Assistant; Registered Nurse; ADMITTING PHYSICIAN Hospitalist; ATTENDING PHYSICIAN Internal Medicine; CONSULT PHYSICIAN Internal Medicine Critical Care Medicine; CONSULT PHYSICIAN Surgery; EMERGENCY PHYSICIAN Emergency Medicine; FAMILY PHYSICIAN Internal Medicine
PROC: 0WQF4ZZ Repair Abdominal Wall, Percutaneous Endoscopic Approach (ICD-10-PCS; 2024-09-19)
PROC: 0DB80ZZ Excision of Small Intestine, Open Approach (ICD-10-PCS; 2024-09-19)
DX: K41.30 Unilateral femoral hernia, with obstruction, without gangrene, not specified as recurrent (principal); J69.0 Pneumonitis due to inhalation of food and vomit; J96.01 Acute respiratory failure with hypoxia; R57.1 Hypovolemic shock; I5A Non-ischemic myocardial injury (non-traumatic); N17.9 Acute kidney failure, unspecified; E87.3 Alkalosis; K42.0 Umbilical hernia with obstruction, without gangrene; I12.9 Hypertensive chronic kidney disease with stage 1 through stage 4 chronic kidney disease, or unspecified chronic kidney disease; N18.9 Chronic kidney disease, unspecified; E87.6 Hypokalemia
CPT/HCPCS: 88307; 71046; 74018; 74176; 74177; 80048; 80053; 81003; 82805; 83690; 83735; 84100; 84484; 85025; 85379; 85730; 86850; 86900; 86901; 87502; 87811; 93005; 96361; 96374; 97116; 97163; 97167; 97530; 97535; 99291; C1776; P9047; Q9967

== ENCOUNTER 2024-11-21 06:23 | Day surgery (SDC) | payer OTHER, SELFPAY ==
[2024-11-15 13:52] VITALS: BMI 19.9
[2024-11-21] VITALS (11 sets, daily range): BP systolic 0–125; BP diastolic 72–83; BMI 19.9
[2024-11-21] MEDS: TYLENOL 1000 MG PO (09:13)
[2024-11-21] MEDS: NORMOSOL-R/PLASMALYTE-A 1000 IV (09:14)
--- NOTE | 2024-11-21 12:33 | W.IMMPOSTOP ---
Surgical Immed Post Op Note
-
Primary Surgeon: Mehul Fletcher MD
Assisting Surgeon: None
Pre-op Diagnosis: Right femoral hernia
Post-op Diagnosis: Right femoral abscess, right femoral hernia, left femoral hernia
Procedure Performed:
1. Drainage of an intra-abdominal abscess
2. Robotic right femoral hernia repair with mesh (MAXIMO approach)
Anesthesia Type: General
Specimen / Cultures:
1. Abscess fluid for Gram stain and culture aerobic and anaerobic.
2. Abscess cavity for tissue culture
Estimated Blood Loss: 11 cc
Complications: None
Operative Findings: Cutdown at the umbilicus. Large bulbous structure noted over the right groin initially thought to simply be the inverted hernia sac. 1 epiploic appendage was adherent in this area as well as dissected off and freed with no
violation of the sigmoid colon itself. A left femoral hernia was noted. The standard MAXIMO approach with achievement of the critical view of the MPO. The round ligament was divided. The ball of an additional 5 mm port was placed in the right
lower quadrant to assist with this. Tissue was incised and pus was expressed which was sent for culture. A 4 x 4 sponge was used to help with hemostasis and mopping up the discharge. The abscess cavity cap was opened and removed using a 5 mm Endo
Catch bag to be sent for tissue culture. The space was thoroughly irrigated. Given the contamination we elected not to place permanent mesh but instead an absorbable phasix uncoated mesh that was cut to size and secured at [facility]
medially and superior laterally. A 19 Bengali round Pancho drain was introduced through a medial incision directly into the abscess cavity and secured to the skin with a 2-0 nylon stitch. The flap was then closed with a barbed 2-0 Monocryl suture.
POST OP PLAN:
Imaging: None
Labs: Routine AM
Diet: Advance to Regular as tolerated
Analgesia: Tylenol 650mg q6 Mary Beth, Dilaudid 0.5mg q2h PRN
Neuro/vascular checks: q4h
AC/AP: Hold Therapeutic AC, Ok for DVT PPx
Activity: Ad Mindy
Wound/Incisions/Drains: Routine, FRANKY to bulb suction
Abx: Will continue antibiotics x 10 days
Dispo: RNF, anticipate discharge home tomorrow versus pending clinical course.
[2024-11-21 14:03] LABS: % Basophils 0.5 % (0-2); % Immature Granulocytes 0.5 % (0-0.5); % Lymphocytes 7.1 % (20.5-51.1); % Monocytes 1.7 % (1.7-9.3); % Neutrophils 90.2 % (42.2-75.2); Absolute Lymphocytes 0.5 10^3/uL (1.2-3.4); Absolute Monocytes 0.1 10^3/uL (0.1-0.6); Absolute Neutrophils 5.9 10^3/uL (1.4-6.5); Hematocrit 37.4 % (37.0-47.0); Hemoglobin 12.6 g/dL (12.0-16.0); Mean Corp Hgb Conc. 33.7 g/dL (33.0-37.0); Mean Corpuscular Hgb 32.1 pg (27.0-31.0); Mean Corpuscular Volume 95.2 fL (81.0-99.0); Mean Platelet Volume 8.4 fL (7.4-10.4); Nucleated Red Blood Cells % 0 %; Platelet Count 283 10^3/uL (130-400); Red Blood Cell Count 3.93 10^6/uL (4.20-5.40); White Blood Cell Count 6.5 10^3/uL (4.8-10.8)
[2024-11-21 14:31] LABS: Blood Urea Nitrogen 18 mg/dl (7-17); Carbon Dioxide 27 mmol/L (22-30); Chloride 92 mmol/L (98-107); Estimated Creatinine Clearance 77 ml/min; Glucose 121 mg/dl (70-99); Potassium 4.5 mmol/L (3.5-5.1); Sodium 126 mmol/L (135-145); eGFR > 60.00
[2024-11-21] MEDS: FIBERCON 625 MG PO (15:05)
[2024-11-21] MEDS: TORADOL 10 MG IV ×2 (15:05→21:01)
[2024-11-21] MEDS: CLEOCIN 50 IV ×2 (15:05→21:01)
--- NOTE | 2024-11-21 15:47 | PTCARENOTE ---
admitted from [facility] s/p robotic femoral hernia repair and abscess drainage. AAOx3, drowsy. abdomen flat with 4 lap sites and FRANKY drain on RLQ with serosang drainage. Saldaña in place, draining yellow urine. patient denies pain, admission completed and
documented, assessment in [facility]
[2024-11-21] MEDS: TYLENOL 650 MG PO (16:52)
[2024-11-21] MEDS: HEPARIN 5000 UNITS SC (21:01)
[2024-11-21] MEDS: COLACE 100 MG PO (22:21)
[2024-11-22] MEDS: TYLENOL 650 MG PO ×2 (00:57→12:38)
[2024-11-22] MEDS: TORADOL 10 MG IV ×2 (03:21→08:18)
[2024-11-22] MEDS: CLEOCIN 50 IV ×2 (03:21→08:19)
[2024-11-22] MEDS: TYLENOL PO (06:24)
[2024-11-22 07:22] VITALS: BP 109/79
[2024-11-22] MEDS: FIBERCON 625 MG PO (08:19)
[2024-11-22] MEDS: CARDIZEM CD 240 MG PO (08:19)
[2024-11-22] MEDS: HEPARIN 5000 UNITS SC (08:19)
--- NOTE | 2024-11-22 13:20 | W.PN.GS2 ---
Today's Communication / Plan
-
Dispo planning
Assessment / Plan
-
This is a 69-year-old female postoperative day 1 from a robotic for right femoral hernia repair with absorbable mesh and drainage of intra-abdominal abscess. Doing well, expected postoperative course.
Will DC home today with drain teaching.
Will plan for a 1 week course of antibiotics.
Plan to follow-up in 1 week for drain removal.
All questions answered, patient agreeable to plan of care above.
Time Spent
Total Time Spent with Patient (in minutes): 10
Subjective Data
-
Date of Service: November 22, 2024
Interval Events:
No acute events overnight. Slept well. Pain Controlled. Denies Nausea/Vomiting, +bowel function. Tolerating diet.
Objective Data
-
Intake and Output
11/21/24 11/22/24 11/23/24
06:59 06:59 06:59
Intake Total 580 / 580
Output Total 375 / 375 560 / 560
Balance 205 / 205 -560 / -560
Intake:
Oral fluids 480 / 480
IV fluids (Total) 100 / 100
Normosol 100 / 100
Output:
Drain Output (Total) 100 / 100 60 / 60
Lower Abdomen Magdaleno-Harper 100 / 100 60 / 60
Urine, Castillo 275 / 275 400 / 400
Urine, Voided 100 / 100
Vital Signs
Temp Pulse Resp BP Pulse Ox
97.8 F 75 20 109/79 100
11/22/24 07:22 11/22/24 07:22 11/22/24 07:22 11/22/24 07:22 11/22/24 07:22
Lab Results
11/21/24 13:55
11/21/24 13:56
Calcium 9.0 mg/dl (8.4-10.2) 11/21/24 13:56
Physical Exam
-
GENERAL/NEURO: Awake, Alert, no distress
CHEST: Unlabored breathing on RA
ABDOMEN: Soft, Non-Tender, Non-Distended, FRANKY with serosanguineous output.
Patient has a castillo catheter: No
Patient has a central line: No
--- NOTE | 2024-11-22 13:55 | CM ---
Met with patient to obtain information for assessment. Patient stated that she lives with her mother and brother in a two story home with 5 steps to enter. She expressed no difficulty with steps.
She described herself as independent with all of her ADLs, personal care, dressing and bathing. 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 Her brother transports her to her appointments and does the shopping.
She denied any DME.
She has had [facility] in the past but expressed that her brother will be able to bring her to her f/u appointments.
She has not been to a SNF.
Patient has a prescription plan and uses, [facility] for all of her medications.
Her PCP is, Paulette Rodriguez.
Plan: Case management will continue to follow and assist with discharge planning. Home when discharged with f/u outpatient for FRANKY drain.
[2024-11-22 14:23] VITALS: BP 125/81
== END 2024-11-22 15:07 | disposition home or self-care (01) ==
LOC: SDS 06:23
PROVIDERS: ATTENDING PHYSICIAN Surgery; FAMILY PHYSICIAN Internal Medicine
PROC: 8E0W4CZ Robotic Assisted Procedure of Trunk Region, Percutaneous Endoscopic Approach (ICD-10-PCS; 2024-11-21)
PROC: 0YQ74ZZ Repair Right Femoral Region, Percutaneous Endoscopic Approach (ICD-10-PCS; 2024-11-21)
DX: K41.90 Unilateral femoral hernia, without obstruction or gangrene, not specified as recurrent (principal); K65.1 Peritoneal abscess
CPT/HCPCS: 49550; 36415; 80048; 85025; 87070; 87075; 87176; 87205; 93005; C1781

== ENCOUNTER 2024-11-26 03:14 | Inpatient (IN) | payer OTHER, SELFPAY ==
[2024-11-26] VITALS (19 sets, daily range): BP systolic 105–143; BP diastolic 70–100; PULSE 82; O2SAT 97; BMI 19.6
--- NOTE | 2024-11-26 01:29 | ED.MUSCINJ ---
HPI-Injury
General
Chief Complaint: Musculo-Skeletal Complaint
Source: patient
Exam Limitations: none
Time Seen by Provider: 11/26/24 01:25
History of Present Illness-Injury
Initial Injury comments:
69-year-old female presents via EMS from home after trip and fall with right hip pain. No anticoagulants. No head strike. She was recently here for hernia surgery and currently has a drain. No significant abdominal pain since the fall.
Typically ambulates without the assistance of a cane or a walker
Phy Exam
Physical Exam
Physical Exam:
General: Well-appearing female no acute respiratory distress
HEENT: Normocephalic atraumatic
Heart: Regular rate and rhythm no murmurs
Lungs: Clear no wheeze
Musculoskeletal exam: Patient's right hip is tender with increased pain with any type of motion to the hip. Leg itself is held in flexion in the hip and knee
Skin is intact no laceration
Vascular: Palpable pulses bilateral feet
Injury Course
Orders/Labs/Results
Orders:
Orders
11/26/24 01:29
CR Hip - RT w/wo Pel 2-3 Vw* Urgent
Comment:
Reason For Exam: fall, right hip pain
Include a pelvis x-ray?: Yes
11/26/24 01:44
Complete Blood Count/With Diff Urgent
Comprehensive Metabolic Panel Urgent
Abnormal Lab Results
11/26/24
01:44
RBC 3.61 L 10^6/uL
(4.20-5.40)
Hgb 11.7 L g/dL
(12.0-16.0)
Hct 33.3 L %
(37.0-47.0)
MCH 32.4 H pg
(27.0-31.0)
Absolute Lymphs (auto) 0.9 L 10^3/uL
(1.2-3.4)
Neutrophils % 79.8 H %
(42.2-75.2)
Lymphocytes % 11.4 L %
(20.5-51.1)
Sodium 125 L mmol/L
(135-145)
Chloride 94 L mmol/L
(98-107)
Creatinine 0.5 L mg/dL
(0.6-1.0)
Glucose 131 H mg/dl
(70-99)
Total Protein 6.2 L g/dl
(6.3-8.2)
11/26/24 01:44
11/26/24 01:44
MDM/Problems Addressed
Differential Diagnosis Includes:
Mechanical fall with right hip pain. Consider fracture versus dislocation versus pelvic injury
X-rays right hip and pelvis pending patient received 180 mcg of fentanyl en route
*Critical Care Note
Total Time (30-74mins, 75-104mins- exclusive of procedures): Not Applicable
Update Note
Update Note:
X-rays demonstrate impacted femoral neck fracture on the right side. Patient requires admission to hospital. Notified hospitalist and orthopedics.
ED Attending Note
-
Portions of this chart may have been created with voice recognition software.� Occasional wrong word or��sound alike� substitutions may have occurred due to the inherent limitations of voice recognition software.
Discharge Plan
Departure
Patient Disposition: Home (Routine Discharge)
Date of Disposition: 11/26/24
Time of Disposition: 02:21
Patient with high blood pressure during this ER visit?: No
Discharge Problem:
Closed fracture of right hip
Prescriptions:
No Action
diltiazem HCl 240 mg Capsule,Extended Release 24 Hr
240 mg PO DAILY
polyethylene glycol 3350 [Miralax] 17 gram Powder In Packet
17 g PO DAILY
lovastatin 10 mg Tablet
10 mg PO HS
cyanocobalamin (vitamin B-12) 500 mcg Tablet
500 mcg PO BID
lisinopril 10 mg Tablet
10 mg PO DAILY
calcium polycarbophil [FiberCon] 625 mg Tablet
625 mg PO DAILY
docusate sodium [Colace] 100 mg Capsule
100 mg PO BID Qty: 0 0RF
Centrum Silver 0.4 mg-300 mcg- 250 mcg Tablet
1 tab PO DAILY
Caltrate 600-D Plus Minerals 600 mg calcium- 800 unit-50 mg Tablet
1 tab PO DAILY
acetaminophen [acetaminophen] 325 mg tablet
650 mg PO Q6HPRN PRN (Reason: mild pain) Qty: 14 0RF
ibuprofen 600 mg tablet
600 mg PO Q6H PRN (Reason: pain) Qty: 14 0RF
clindamycin HCl 300 mg capsule
300 mg PO Q6H 4 Days Qty: 16 0RF
Referrals:
Laureen Rodriguez MD [Family Provider] -
Interventions
Interventions:
*Risk Screen - Suicide Last Done: 11/26/24 01:31
*General Assessment Last Done: 11/26/24 01:31
*Neglect/Abuse Screening Last Done: 11/26/24 01:31
Discharge Date and Time
Print Language: AMHARIC
[2024-11-26 01:51] LABS: % Basophils 0.5 % (0-2); % Eosinophils 1.2 % (0-6); % Immature Granulocytes 0.3 % (0-0.5); % Lymphocytes 11.4 % (20.5-51.1); % Monocytes 6.8 % (1.7-9.3); % Neutrophils 79.8 % (42.2-75.2); Absolute Eosinophils 0.1 10^3/uL (0-0.7); Absolute Lymphocytes 0.9 10^3/uL (1.2-3.4); Absolute Monocytes 0.5 10^3/uL (0.1-0.6); Hematocrit 33.3 % (37.0-47.0); Hemoglobin 11.7 g/dL (12.0-16.0); Mean Corp Hgb Conc. 35.1 g/dL (33.0-37.0); Mean Corpuscular Hgb 32.4 pg (27.0-31.0); Mean Corpuscular Volume 92.2 fL (81.0-99.0); Mean Platelet Volume 8.2 fL (7.4-10.4); Nucleated Red Blood Cells % 0 %; Platelet Count 295 10^3/uL (130-400); Red Blood Cell Count 3.61 10^6/uL (4.20-5.40); Red Cell Dist. Width 12.3 % (11.5-14.5); White Blood Cell Count 7.6 10^3/uL (4.8-10.8)
[2024-11-26 02:13] LABS: ALT (SGPT) 14 U/L (0-35); AST (SGOT) 22 U/L (14-36); Albumin 3.8 g/dl (3.5-5.0); Alkaline Phosphatase 69 U/L (38-126); Blood Urea Nitrogen 17 mg/dl (7-17); Carbon Dioxide 24 mmol/L (22-30); Chloride 94 mmol/L (98-107); Estimated Creatinine Clearance 78 ml/min; Glucose 131 mg/dl (70-99); Potassium 4.5 mmol/L (3.5-5.1); Sodium 125 mmol/L (135-145); Total Bilirubin 0.7 mg/dl (0.2-1.3); Total Protein 6.2 g/dl (6.3-8.2); eGFR > 60.00
--- NOTE | 2024-11-26 02:57 | HPS.HSE ---
Family Physician
-
Family Physician: Laureen Rodriguez
Chief Complaint
-
Fall / R Hip Pain
History of Present Illness
Patient is a 69y F with PMH significant for R hemiparesis s/p prior CVA and recent R femoral hernia repair and abscess drainage who presents to ED complaining of fall at home. Patient states that she was 'walking too fast' this evening when she
fell - landing on her R hip. She denies striking her head or any LOC during the fall. She denies any prodrome of lightheadedness, dizziness, dyspnea, etc. Patient has no pain other than R hip / groin pain. She called 911 and was brought to the
ED for further evaluation. X-rays done here show R hip fracture.
Patient had incarcerated R femoral hernia in 09/2024. She underwent partial small bowel resection at that time.
She returned to the OR on 11/21 for definitive R femoral hernia repair. During that surgery, she was noted to have R pelvic abscess and a drain was placed.
She has been on clindamycin since that surgery. FRANKY drain remains in place draining sanguinous fluid with particulates.
Patient states that drain is tentatively for removal on Wednesday 11/29.
Medical History
Past Medical History
Past Medical History: Reports Other
Additional Past Medical History:
Hypertension
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
Past Surgical History: Reports Other
Additional Past Surgical History:
[place] Hole (2004)
Incarcerated R Femoral Hernia Open Reduction / Small Bowel Resection (09/18/24)
Right Femoral Hernia Repair (with absorbable mesh) - Right Pelvic Abscess Drainage (11/21/24)
Social History
Tobacco: Former Smoker (Quit smoking > 20 years ago. Approx 20 pack years total use.)
Alcohol: None
Drug: None
Family History
Family History: Not pertinent
Allergies / Home Medications
Allergies reflects when Allergies were last updated in [facility].
Home Medications with original date entered in [facility]
Allergy/Medication List:
Allergies
Allergy/AdvReac Type Severity Reaction Status Date / Time
Cephalosporins Allergy Unknown Verified 11/21/24 09:00
penicillin V Allergy Unknown Verified 11/21/24 09:00
Penicillins Allergy Unknown Verified 11/21/24 09:00
Home Medications
calcium polycarbophil 625 mg tablet (FiberCon) 625 mg PO DAILY Gastrointestinal Issue 09/18/24
cyanocobalamin (vitamin B-12) 500 mcg tablet 500 mcg PO BID Supplement 09/18/24
diltiazem HCl 240 mg capsule,24 hr,extended release 240 mg PO DAILY Arrhythmia 09/18/24
lisinopril 10 mg tablet 10 mg PO DAILY Blood Pressure 09/18/24
lovastatin 10 mg tablet 10 mg PO HS High Cholesterol 09/18/24
polyethylene glycol 3350 17 gram oral powder packet (Miralax) 17 g PO DAILY Constipation 09/18/24
docusate sodium 100 mg capsule (Colace) 100 mg PO BID Constipation #0 caps 09/26/24
calcium 600 mg-D3 800 unit-mag11 50 hx-fser-kglsqx-inna-s.borat tablet (Caltrate 600-D Plus Minerals) 1 tab PO DAILY 11/14/24
vnoiliyg-tzq-eseki acid 0.4 mg-lycopene 300 mcg-lutein 250 mcg tablet (Centrum Silver) 1 tab PO DAILY 11/14/24
acetaminophen 325 mg tablet 650 mg (2 x 325 mg) PO Q6HPRN PRN mild pain #14 tabs 11/21/24
ibuprofen 600 mg tablet 600 mg PO Q6H PRN pain #14 tabs 11/21/24
clindamycin HCl 300 mg capsule 300 mg PO Q6H 4 days #16 caps 11/22/24
Review of Systems
-
History Source: Patient
A 12 point ROS was completed and negative except as noted: Yes
Constitutional: Denies Fever or Chills
Respiratory: Denies Cough or Trouble Breathing
Cardiac: Denies Chest Pain or Palpitations
Abdomen/GI: Denies Abdominal Pain, Nausea, Vomiting or Diarrhea
: Denies Dysuria, Frequency or Flank Pain
Musculoskeletal: Reports Joint Pain; Denies Edema
Neurological: Reports Weakness; Denies Dizzy or Headache
Psych: Denies Depression or Anxiety
Physical Exam
Vital Signs
Vital Signs
Temp Pulse Resp BP Pulse Ox
98.4 F 77 20 139/92 97
11/26/24 01:29 11/26/24 01:29 11/26/24 01:11/26/24 01:11/26/24 01:29
Physical Exam
General: Other (69y F in mild distress due to pain.)
HEENT: Moist mucous membranes and PERRLA
Respiratory: Clear; No Wheezes, Rales or Rhonchi
Cardiac: S1/S2 and Regular Rhythm; No Murmur
GI: Soft, Non Tender, Non Distended, Normal Bowel Sounds and Other (Drainage catheter in lower abdomen / suprapubic region connected to FRANKY bulb suction with sanguinous liquid / particulat drainage in tubing / device. Minimal erythema at entry. No
discharge / bleeding.)
Musculoskeletal: No Clubbing, No Cyanosis and No Edema
Neuro: AO x 3 and Other (R weakness - no new focal deficits.)
Laboratory Results
-
11/26/24 01:44
11/26/24 01:44
Laboratory Results
Total Bilirubin 0.7 mg/dl (0.2-1.3) 11/26/24 01:44
AST 22 U/L (14-36) 11/26/24 01:44
ALT 14 U/L (0-35) 11/26/24 01:44
Alkaline Phosphatase 69 U/L (38-126) 11/26/24 01:44
Impression/Plan
-
A/P: Patient is a 69y F with PMH significant for HTN and priro CVA who presents to ED complaining of R hip pain s/p fall at home this evening.
Right Hip Fracture
Fall at Home
- Admit for further evaluation and treatment.
- No suspicious prodrome / syncope / etc per patient history.
- No evident injury other than R hip fracture.
- Ortho evaluation for eventual operative repair.
- Patient is at increased risk for complications due to prior CVA, hyponatremia, etc.
- Address hyponatremia as noted below.
- Benefits of planned procedure outweigh the potential risks and patient is OK to proceed to OR without additional evaluation(s).
- Defer to Ortho / Surgery re: timing of procedure as it relates to abdominal / pelvic drain, abscess , recent hernia repair, etc.
Hyponatremia
- Unclear etiology. No evidence of significant hyper or hypovolemia by exam.
- No specific culprit medications.
- Na was also low during recent admission (11/21) and is not significantly changed since then.
- IVFs overnight and follow for any changes / improvement.
- Check urine studies for further evaluation
- Follow labs / lytes for improvement.
Pelvic Abscess
- During R femoral hernia repair on 11/21/23, patient was incidentally noted to have R femoral / pelvic area abscess.
- This was incised / drained at that time and drain was placed.
- Drain remains in place with drainage of sanguinous material - decreased significantly in output per patient.
- Continue current clindamycin for now.
- Culture data from 11/21 all remains negative to date.
- Continue FRANKY drainage.
- Surgery evaluation for additional recommendations.
Benign Hypertension
- Stable. Continue outpatient medications with holding parameters.
History of Hemorrhagic CVA
Right Sided Weakness as Late Effect of CVA
- Stable. No new focal weakness.
- PT / OT evaluations post-op.
- Continue statin, BP control, etc.
DVT Prophylaxis: SCDs
Code Status: Full
[2024-11-26] MEDS: DILAUDID 0.5 MG IV (04:50)
[2024-11-26 06:04] LABS: Hematocrit 31.3 % (37.0-47.0); Hemoglobin 11.2 g/dL (12.0-16.0); Mean Corp Hgb Conc. 35.8 g/dL (33.0-37.0); Mean Corpuscular Hgb 32.8 pg (27.0-31.0); Mean Corpuscular Volume 91.8 fL (81.0-99.0); Mean Platelet Volume 8.7 fL (7.4-10.4); Platelet Count 286 10^3/uL (130-400); Red Blood Cell Count 3.41 10^6/uL (4.20-5.40); Red Cell Dist. Width 12.1 % (11.5-14.5); White Blood Cell Count 7.8 10^3/uL (4.8-10.8)
[2024-11-26 06:16] LABS: Blood Urea Nitrogen 17 mg/dl (7-17); Calcium 8.7 mg/dl (8.4-10.2); Carbon Dioxide 28 mmol/L (22-30); Chloride 95 mmol/L (98-107); Estimated Creatinine Clearance 78 ml/min; Glucose 106 mg/dl (70-99); Potassium 4.7 mmol/L (3.5-5.1); Sodium 126 mmol/L (135-145); eGFR > 60.00
[2024-11-26] MEDS: CLEOCIN 300 MG PO ×4 (06:37→23:05)
[2024-11-26] MEDS: NSS 1000 IV (08:09)
[2024-11-26] MEDS: ZESTRIL 10 MG PO (08:10)
[2024-11-26] MEDS: COLACE 100 MG PO ×2 (08:10→20:45)
[2024-11-26] MEDS: MIRALAX 17 GRAMS PO (08:10)
[2024-11-26] MEDS: CARDIZEM CD 240 MG PO (08:10)
[2024-11-26] MEDS: TYLENOL 1000 MG PO ×3 (08:10→23:06)
[2024-11-26 08:15] LABS: Osmolality Urine 244 mOsm/kg (300-900)
[2024-11-26 08:31] LABS: Urine Sodium 57 mmol/L (30-90)
--- NOTE | 2024-11-26 08:49 | W.PN.UPDATE ---
Update Note
Progress Note Update
Full H&P to follow; patient seen and evaluated
69-year-old female admitted to [facility] after sustaining mechanical fall with impact of her right hip with imaging showing a mildly displaced femoral neck fracture. She has significant history of incarcerated hernia repair in September
[address] Fletcher and with definitive surgery for November 2024 with incidental finding of an abscess. She has since had a drain in place and pending cultures has been on oral outpatient clindamycin
Culture data was reviewed; Gram stain shows few gram-negative rods but otherwise cultures are negative growth to date.
Imaging show discussed with the patient. Discussed we routinely consider arthroplasty for her fracture pattern however in the setting of infection there be high risk for periprosthetic joint infection and require further revision surgery in the
future. Recommendation was for reduction and percutaneous pinning/cannulated screw fixation however there is a higher risk of avascular necrosis. Further discussed this could be transition to total hip arthroplasty if this were to occur.
Discussed with the patient as well as relative family members the significance of hip fractures there is an increased morbidity and mortality associated with these and they are significant injuries; reviewed that a portion of patient's return
towards ambulatory baseline status, another subset of patients are decreased when activity level, and other subset of patients pass away relative to comorbid conditions and decreased ambulatory status. Discussed it is recommended for majority of
patients to undergo operative intervention for optimal outcomes so that they may have an increased ambulatory status.
Images were shown and discussed with the patient regarding their injury. The injury and respective operative and nonoperative interventions reviewed with the patient and respective family members to include the risks and benefits rehabilitation and
prognosis for each. The treatment and operative technique, postoperative follow-up, postoperative rehabilitation and surgical prognosis was reviewed in detail. After thorough discussion of potential treatment options the patient and respective
family members wish to proceed with operative intervention.
-Plan for OR today for right hip fixation with Dr. Nash
-Consent obtained and placed into chart. Laterality signed
-Will change antibiotic regimen to vancomycin and gentamicin; contacted inpatient pharmacy for dosing. Antibiotics prior to OR ordered stat.
-Nonweightbearing to right lower extremity
-N.p.o.
-Was discussed with Dr. Fletcher who agreed with continue with right hip surgery
--- NOTE | 2024-11-26 09:08 | CON.GS ---
Addendum entered and electronically signed by Brendan Dixon MD 11/26/24 09:36:
Patient seen and examined. Agree with assessment plan as documented below.
Ms Ojeda is a 69 yo female with a h/o CVA with RIGHT hemiparesis who presented through the ED in September of 2024 with a strangulated femoral hernia and underwent laparoscopic primary repair of R femoral hernia and open SBR. She presented for
definitive repair of the hernia on 11/21/24 with robotic RIGHT femoral hernia repairs preformed with Phasix mesh as well as drainage of an intra-abdominal abscess. A FRANKY drain was left in place post operatively with plans for removal on 11/29/24 and she
was discharged to home after an overnight stay after surgery. Unfortunately, she notes that last night she was walking rather quickly and had a mechanical fall and presents with right femur fracture for surgical repair later this morning. She denies
abdominal pain. She notes her bowel have been regular and she is passing flatus. She denies nausea or vomiting, fevers or chills. FRANKY drain is present with SSF drainage noted.
Gen: NAD, pain with movement
Abd: soft, NT/ND, mild ecchymosis at RLQ, FRANKY serosang, no palpable hernia
69 yo female s/p RAL RIGHT femoral hernia repairs preformed with Phasix mesh as well as drainage of an intra-abdominal abscess and FRANKY drain.
She now presents for mechanical fall with right femur fracture and plan for OR today.
FRANKY with SSF. Abdominal exam benign, incisions healing well.
-- NPO for OR, OK for regular diet thereafter
-- Follow FRANKY outputs, character and quality, plan to remove FRANKY drain prior to discharge
-- Abx: Continue PO Clindamycin, received Vanco and Gent for fx coverage
Original Note:
Consultation
-
Date/Time Consultation Requested: 11/26/24 3393
Requesting Provider: Smith
Medical History
-
Chief Complaint: Fall
History of Present Illness:
Ms Ojeda is a 69 yo female with a h/o CVA with right hemiparesis who presented through the ED in September of 2024 with a strangulated femoral hernia and underwent laparoscopic femoral primary hernia repair at the time with open SBR. She
presented for definitive repair of the hernia on 11/21/24 with robotic right and left femoral hernia repairs preformed with mesh as well as drainage of an intra-abdominal abscess. A FRANKY drain was left in place post operatively with plans for removal on
11/29/24 and she was discharged to home after an overnight stay after surgery. Unfortunately, she notes that last night she was walking rather quickly and had a mechanical fall and presents with right femur fracture for surgical repair later this
morning. She denies abdominal pain. She notes her bowel have been regular and she is passing flatus. She denies nausea or vomiting, fevers or chills. FRANKY drain is present with SSF drainage noted.
Past Medical History
Past Medical History: CVA (2004 with right hemiparesis)
Past Surgical History: Brain ([place] hole 2004) and Hernia Repair (primary repair of right femoral hernia 09/18/24 and RAL repair of bilateral femoral hernias with mesh on 11/21/24 with drainage of abscess at that time)
Social History
Tobacco: Former Smoker
Alcohol: None
Living: With Family
Family History
Family History: Reviewed & Not Pertinent
Allergies / Home Medications
Allergy/AdvReac Type Severity Reaction Status Date / Time
Cephalosporins Allergy Unknown Verified 11/21/24 09:00
penicillin V Allergy Unknown Verified 11/21/24 09:00
Penicillins Allergy Unknown Verified 11/21/24 09:00
�Medication �Instructions �Recorded �Confirmed �Type
calcium polycarbophil 625 mg 625 mg PO DAILY Gastrointestinal 09/18/24 11/26/24 History
tablet (FiberCon) Issue
cyanocobalamin (vitamin B-12) 500 500 mcg PO BID Supplement 09/18/24 11/26/24 History
mcg tablet
diltiazem HCl 240 mg capsule,24 240 mg PO DAILY Arrhythmia 09/18/24 11/26/24 History
hr,extended release
lisinopril 10 mg tablet 10 mg PO DAILY Blood Pressure 09/18/24 11/26/24 History
lovastatin 10 mg tablet 10 mg PO HS High Cholesterol 09/18/24 11/26/24 History
polyethylene glycol 3350 17 gram 17 g PO DAILY Constipation 09/18/24 11/26/24 History
oral powder packet (Miralax)
docusate sodium 100 mg capsule 100 mg PO BID Constipation #0 caps 09/26/24 11/26/24 Rx
(Colace)
calcium 600 mg-D3 800 unit-mag11 1 tab PO DAILY 11/14/24 11/26/24 History
50 hg-ylre-zuclcn-inna-s.borat
tablet (Caltrate 600-D Plus
Minerals)
kmfyvmmr-wsm-ipctp acid 0.4 1 tab PO DAILY 11/14/24 11/26/24 History
mg-lycopene 300 mcg-lutein 250 mcg
tablet (Centrum Silver)
acetaminophen 325 mg tablet 650 mg (2 x 325 mg) PO Q6HPRN PRN 11/21/24 11/26/24 Rx
mild pain #14 tabs
ibuprofen 600 mg tablet 600 mg PO Q6H PRN pain #14 tabs 11/21/24 11/26/24 Rx
clindamycin HCl 300 mg capsule 300 mg PO Q6H 4 days #16 caps 11/22/24 11/26/24 Rx
Review of Systems
-
History Source: Patient
All other systems: Negative unless noted
A 10 point review of systems was completed, and was negative except as per HPI.
Physical Exam
Vital Signs
Temp Pulse Resp BP Pulse Ox
98.1 F 79 18 143/89 95
11/26/24 07:23 11/26/24 08:10 11/26/24 07:23 11/26/24 08:10 11/26/24 07:23
11/25/24 11/26/24 11/27/24
06:59 06:59 06:59
Actual Weight 55 kg
Body Mass Index (BMI) 19.6
Lab Results
11/26/24 05:31
11/26/24 05:31
WBC 7.8 10^3/uL (4.8-10.8) 11/26/24 05:31
Hgb 11.2 g/dL (12.0-16.0) L 11/26/24 05:31
Hct 31.3 % (37.0-47.0) L 11/26/24 05:31
Plt Count 286 10^3/uL (130-400) 11/26/24 05:31
Abs Immat Gran (auto) 0.0 10^3/uL (0-0.05) 11/26/24 01:44
Neutrophils % 79.8 % (42.2-75.2) H 11/26/24 01:44
Physical Exam
General: No Apparent Distress
HEENT: Moist Mucous Membranes
Respiratory: Non Labored Respirations
GI: Soft, Non Tender, Non Distended and Other (FRANKY in place with SSF)
Musculoskeletal: Other (right sided weakness)
Skin: Other (Incisions with intact glue, well approximated with no erythema)
Neuro: Awake, Alert and AO x 3
Data Reviewed
-
Radiology: Report Reviewed by me, Discussed with Physician and Discussed with Patient
Labs: Labs Reviewed by me, Discussed with Physician and Discussed with Patient
Old Records: Reviewed
Assessment / Plan
-
69 yo female with a h/o CVA with right hemiparesis who presented through the ED in September of 2024 with a strangulated femoral hernia and underwent laparoscopic femoral primary hernia repair at the time with open SBR. She presented for definitive
repair of the hernia on 11/21/24 with robotic right and left femoral hernia repairs preformed with mesh as well as drainage of an intra-abdominal abscess. A FRANKY drain was left in place post operatively with plans for removal on 11/29/24.
She now presents for mechanical fall with right femur fracture and plan for OR today. FRANKY with SSF. Abdominal exam benign, incisions healing well.
--NPO for OR, ok for regular diet thereafter
--Follow FRANKY outputs, character and quality
--Tentatively will remove FRANKY drain prior to discharge
--- NOTE | 2024-11-26 09:33 | CON.ORTHO ---
Consultation
-
Date/Time Consultation Requested: 11/26/2024 0427
Date/Time Consultation Performed: 11/26/2024 0830
Requesting Provider: Dr. Smith Biggs
Performing Provider: MONSTER Chung, Dr. Fabio Nash
Reason for Consultation: Right hip fracture
Consultation - Orthopedics
History
69-year-old female presenting [place] emergency room after mechanical fall with impact of her right hip. She reports severe pain inability bear weight and was transported [place] [facility] with a diagnosed right femoral neck fracture. She is
a recent complicated past medical/surgical history has been seen by Dr. Fletcher dating towards September 2024 with an incarcerated right femoral hernia underwent surgical intervention. In November 21, 2024 she went back to the OR for definitive
surgical management with Dr. Fletcher and was noted intraoperatively to have an purulent fluid collection. She has been placed on outpatient clindamycin and drain in place since then.
Allergies / Home Medications
Allergy/AdvReac Type Severity Reaction Status Date / Time
Cephalosporins Allergy Unknown Verified 11/21/24 09:00
penicillin V Allergy Unknown Verified 11/21/24 09:00
Penicillins Allergy Unknown Verified 11/21/24 09:00
�Medication �Instructions �Recorded
calcium polycarbophil 625 mg 625 mg PO DAILY Gastrointestinal 09/18/24
tablet (FiberCon) Issue
cyanocobalamin (vitamin B-12) 500 500 mcg PO BID Supplement 09/18/24
mcg tablet
diltiazem HCl 240 mg capsule,24 240 mg PO DAILY Arrhythmia 09/18/24
hr,extended release
lisinopril 10 mg tablet 10 mg PO DAILY Blood Pressure 09/18/24
lovastatin 10 mg tablet 10 mg PO HS High Cholesterol 09/18/24
polyethylene glycol 3350 17 gram 17 g PO DAILY Constipation 09/18/24
oral powder packet (Miralax)
docusate sodium 100 mg capsule 100 mg PO BID Constipation #0 caps 09/26/24
(Colace)
calcium 600 mg-D3 800 unit-mag11 1 tab PO DAILY Supplement 11/14/24
50 bs-czxg-qfwpiv-inna-s.borat
tablet (Caltrate 600-D Plus
Minerals)
dhgpyazn-kel-cyrdf acid 0.4 1 tab PO DAILY Supplement 11/14/24
mg-lycopene 300 mcg-lutein 250 mcg
tablet (Centrum Silver)
acetaminophen 325 mg tablet 650 mg (2 x 325 mg) PO Q6HPRN PRN 11/21/24
mild pain #14 tabs
ibuprofen 600 mg tablet 600 mg PO Q6H PRN pain #14 tabs 11/21/24
clindamycin HCl 300 mg capsule 300 mg PO Q6H 4 days #16 caps 11/22/24
Past Medical History: Reports Other
Additional Past Medical History:
Hypertension
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
Past Surgical History: Reports Other
Additional Past Surgical History:
[place] Hole (2004)
Incarcerated R Femoral Hernia Open Reduction / Small Bowel Resection (09/18/24)
Right Femoral Hernia Repair (with absorbable mesh) - Right Pelvic Abscess Drainage (11/21/24)
Vital Signs / Lab Results
Temp Pulse Resp BP Pulse Ox
98.1 F 79 18 143/89 96
11/26/24 07:23 11/26/24 08:10 11/26/24 07:23 11/26/24 08:10 11/26/24 09:15
11/26/24 05:31
11/26/24 05:31
PHYSICAL EXAM: Focused examination of the right lower extremity shows externally rotated right lower extremity and slightly shortened. In the right inguinal area there is drain placed. There is trace ecchymosis surrounding. There is bloody fluid
inside of her FRANKY drain. There is mild erythema in the area of her localized sutures and dressings overlying there is right lower quadrant abdominal. Skin around the hip itself is intact and she is neuro vas intact L3-S1
IMAGING: Radiographs taken of the right pelvis and hip show a mildly displaced right femoral neck fracture
Assessment / Plan
69-year-old female admitted to [facility] after sustaining mechanical fall with impact of her right hip with imaging showing a mildly displaced femoral neck fracture. She has significant history of incarcerated hernia repair in September
[address] Fletcher and with definitive surgery for November 2024 with incidental finding of an abscess. She has since had a drain in place and pending cultures has been on oral outpatient clindamycin
Culture data was reviewed; Gram stain shows few gram-negative rods but otherwise cultures are negative growth to date.
Imaging show discussed with the patient. Discussed we routinely consider arthroplasty for her fracture pattern however in the setting of infection there be high risk for periprosthetic joint infection and require further revision surgery in the
future. Recommendation was for reduction and percutaneous pinning/cannulated screw fixation however there is a higher risk of avascular necrosis. Further discussed this could be transition to total hip arthroplasty if this were to occur.
Discussed with the patient as well as relative family members the significance of hip fractures there is an increased morbidity and mortality associated with these and they are significant injuries; reviewed that a portion of patient's return
towards ambulatory baseline status, another subset of patients are decreased when activity level, and other subset of patients pass away relative to comorbid conditions and decreased ambulatory status. Discussed it is recommended for majority of
patients to undergo operative intervention for optimal outcomes so that they may have an increased ambulatory status.
Images were shown and discussed with the patient regarding their injury. The injury and respective operative and nonoperative interventions reviewed with the patient and respective family members to include the risks and benefits rehabilitation and
prognosis for each. The treatment and operative technique, postoperative follow-up, postoperative rehabilitation and surgical prognosis was reviewed in detail. After thorough discussion of potential treatment options the patient and respective
family members wish to proceed with operative intervention.
-Plan for OR today for right hip fixation with Dr. Nash
-Consent obtained and placed into chart. Laterality signed
-Will change antibiotic regimen to vancomycin and gentamicin; contacted inpatient pharmacy for dosing. Antibiotics prior to OR ordered stat.
-Nonweightbearing to right lower extremity
-N.p.o.
-Was discussed with Dr. Fletcher who agreed with continue with right hip surgery
*It was further discussed with the patient that the injury sustained is considered a fragility fracture which occurs in the setting of osteoporosis. Discussed with the patient the significance of this as there is an increased risk of further
fragility fractures in the future. Recommend when discharged and in the nearby future for a follow-up with her primary care provider and discussion of management of osteoporosis and mitigating fall risk is much as possible in the future.*
--- NOTE | 2024-11-26 10:43 | W.PN.UPDATE ---
Update Note
Progress Note Update
surgery complete and without complications
preoperatively I did discuss her unique situation with her as well as w Dr. Fletcher. With infection inthe immediate area of the hip fx I feel arthoplasty treatment, which I think would ordinarily be the treatment of choice, is unduly risky and I
recommended pins. There is a risk of nonunion avn or infection which will be heightened but in the balance I feel this is the correct treatment and she agrees with it having discussed all alternatives possibilities and relative risks.
--- NOTE | 2024-11-26 11:45 | PTCARENOTE ---
Pt arrived back to [facility] from PACU s/p R hip cannulated screw. Pt R hip aquacel dressing C/D/I. pt states no pain at this time. Call ch within reach.
--- NOTE | 2024-11-26 15:15 | CM ---
Initial assessment was completed with pts brother via phone. Pt was off floor for hip arthoplasty.
Pt is a 69yr female admitted after fall with hip fx
At baseline, pt lives with her brother and mom in a 2 story home with 5 steps to enter. Pt has a 2nd floor bedroom.
Per brother, there is room for a first floor set up at home and there is a 1st floor handicap shower.
Pt is indep at baseline and has no DME. Pt had [facility] after a Dec admission. No SNF hx.
Pts brother anticipates that pt will need SNF at al. He notes that his mother is currently at [facility] for SNF, but that their first choice is [facility].
PCP; Laureen Rodriguez
Pharm; Desiree Coats
Plan; Likely SNF
--- NOTE | 2024-11-26 15:29 | W.PN.HOSP.TC ---
Today's Communication/Plan
-
Doing well after surgery.
Follow sodium and electrolytes daily
Assessment / Plan
Assessment / Plan
69y F with PMH significant for HTN and priro CVA who presented to ED complaining of R hip pain s/p fall at home this evening.
1. Right Hip Fracture after a Fall at Home - No suspicious prodrome / syncope / etc per patient history. - No evident injury other than R hip fracture.
- Patient is at increased risk for complications due to prior CVA, hyponatremia, etc.
- Address hyponatremia as noted below.
- s/p successful surgery today
See ortho notes for post surgical plan.
2. Hyponatremia - Continues - Unclear etiology. No evidence of significant hyper or hypovolemia by exam.
- No specific culprit medications.
- Na was also low during recent admission (11/21) and is not significantly changed since then.
- IVFs overnight and follow for any changes / improvement.
- Check urine studies for further evaluation
- Follow labs / lytes for improvement.
3. Pelvic Abscess
- During R femoral hernia repair on 11/21/23, patient was incidentally noted to have R femoral / pelvic area abscess.
- This was incised / drained at that time and drain was placed.
- Drain remains in place with drainage of sanguinous material - decreased significantly in output per patient.
- Continue current clindamycin for now.
- Culture data from 11/21 all remains negative to date.
- Continue FRANKY drainage.
- Surgery evaluation for additional recommendations.
4. Benign Hypertension - Stable.
Continue outpatient medications with holding parameters.
5. 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
- Stable. No new focal weakness.
- PT / OT evaluations post-op.
- Continue statin, BP control, etc.
DVT Prophylaxis: SCDs
Code Status: Full
Anticipated Discharge: 24 - 48 hours
Subjective/Interval History
-
Date of Service: November 26, 2024
Objective Data
-
Labs:
Laboratory Results
11/26/24
05:31
WBC 7.8
Hgb 11.2 L
Hct 31.3 L
Plt Count 286
Sodium 126 L
Potassium 4.7
Chloride 95 L
Carbon Dioxide 28
BUN 17
Creatinine 0.6
Glucose 106 H
Calcium 8.7
Vital Signs:
Vital Signs
Temp Pulse Resp BP Pulse Ox
98.2 F 78 16 115/81 98
11/26/24 14:18 11/26/24 14:18 11/26/24 14:18 11/26/24 14:18 11/26/24 14:18
Review of Systems
-
History Source: Patient
All other systems: Reviewed and negative
Physical Exam
-
General: Well Developed, Well Nourished, No Apparent Distress and Comfortable
HEENT: Nose Appears Normal and Ears Appear Normal
Respiratory: Clear to Auscultation
Cardiac: Regular Rhythm and S1/S2
GI: Soft, Nontender and Nondistended
Musculoskeletal: No Clubbing, No Cyanosis and No Edema
Skin: Warm and Dry; Negative Rash
Neuro: Awake, Alert and Oriented
Psych: Calm
Data Reviewed
-
Labs: Labs Reviewed by me
[2024-11-26] MEDS: LIPITOR 10 MG PO (17:08)
[2024-11-26] MEDS: NSS IV (17:09)
[2024-11-26] MEDS: LOW STRENGTH ASPIRIN 81 MG PO (20:46)
[2024-11-27 03:05] VITALS: BP 118/75
[2024-11-27] MEDS: NSS 1000 IV (05:50)
[2024-11-27] MEDS: DILAUDID 0.5 MG IV (06:01)
[2024-11-27 07:25] VITALS: BP 128/80
[2024-11-27] MEDS: CARDIZEM CD 240 MG PO (08:30)
[2024-11-27] MEDS: TYLENOL 1000 MG PO ×3 (08:30→22:09)
[2024-11-27] MEDS: MIRALAX 17 GRAMS PO (08:31)
[2024-11-27] MEDS: LOW STRENGTH ASPIRIN 81 MG PO ×2 (08:31→20:59)
[2024-11-27] MEDS: ZESTRIL 10 MG PO (08:31)
--- NOTE | 2024-11-27 08:31 | W.PN.GS2 ---
Today's Communication / Plan
-
-- FRANKY drain removed
-- F/u Dr. Fletcher in 1 week
Assessment / Plan
-
Patient is a 69 yo F POD#1 s/p RIGHT hip fracture repair with pins by Dr. Nash. S/p RAL RIGHT femoral hernia repair with Phasix mesh and drainage of necrotic fat/abscess on 11/21/[address] Fletcher.
No concerns from a general surgery standpoint. FRANKY drain removed (minimal serosang output over 24-48 hours). Completed antibiotic course; previous plan for Clindamycin for [address] Fletcher. Follow-up with Dr. Fletcher and as an outpatient.
-- FRANKY drain removed
-- Completed abx course of Clindamycin for 4 days
-- F/u Dr. Fletcher in 1-2 weeks
Subjective Data
-
Date of Service: November 27, 2024
No reports of abdominal pain. Pain in R hip well controlled. No nausea or emesis. No fevers.
Objective Data
-
Intake and Output
11/26/24 11/27/24 11/28/24
06:59 06:59 06:59
Intake Total 1080 / 1080
Output Total 1210 / 1210
Balance -130 / -130
Intake:
Oral fluids 1080 / 1080
Output:
Drain Output (Total)
Right Abdomen
Urine, Voided 1200 / 1200
Other:
Number of approximated MODERATE 2
amounts of urine
Vital Signs
Temp Pulse Resp BP Pulse Ox
97.8 F 71 16 128/80 99
11/27/24 07:25 11/27/24 07:25 11/27/24 07:25 11/27/24 07:25 11/27/24 07:25
Calcium 8.7 mg/dl (8.4-10.2) 11/26/24 05:31
Total Bilirubin 0.7 mg/dl (0.2-1.3) 11/26/24 01:44
AST 22 U/L (14-36) 11/26/24 01:44
ALT 14 U/L (0-35) 11/26/24 01:44
Alkaline Phosphatase 69 U/L (38-126) 11/26/24 01:44
Total Protein 6.2 g/dl (6.3-8.2) L 11/26/24 01:44
Albumin 3.8 g/dl (3.5-5.0) 11/26/24 01:44
Physical Exam
-
Gen: NAD
Abd: soft, NT, mild distension (stable), no palpable hernia, incisions c/d/i - mild ecchymosis, no erythema or drainage, FRANKY minimal serosang
Patient has a castillo catheter: No
Patient has a central line: No
[2024-11-27] MEDS: COLACE 100 MG PO ×2 (08:32→20:59)
[2024-11-27 08:37] LABS: Hematocrit 33.3 % (37.0-47.0); Hemoglobin 11.5 g/dL (12.0-16.0); Mean Corp Hgb Conc. 34.5 g/dL (33.0-37.0); Mean Corpuscular Hgb 32.3 pg (27.0-31.0); Mean Corpuscular Volume 93.5 fL (81.0-99.0); Mean Platelet Volume 8.4 fL (7.4-10.4); Platelet Count 313 10^3/uL (130-400); Red Blood Cell Count 3.56 10^6/uL (4.20-5.40); Red Cell Dist. Width 12.5 % (11.5-14.5); White Blood Cell Count 9.7 10^3/uL (4.8-10.8)
--- NOTE | 2024-11-27 08:51 | VNURNOTE ---
Chart reviewed. Patient is current with [facility] PT, OT, [employer]. Will continue to follow hospital course and DC plans.
[2024-11-27 08:59] LABS: Blood Urea Nitrogen 12 mg/dl (7-17); Calcium 8.8 mg/dl (8.4-10.2); Carbon Dioxide 26 mmol/L (22-30); Chloride 96 mmol/L (98-107); Estimated Creatinine Clearance 78 ml/min; Glucose 93 mg/dl (70-99); Sodium 128 mmol/L (135-145); eGFR > 60.00
--- NOTE | 2024-11-27 11:25 | CM ---
Addendum entered by Marcia Latif RN 11/27/24 15:17:
Referrals sent to [facility], [facility], and [facility].
Original Note:
Reviewed the chart notes. Per PT, recommending SNF/rehab prior to transitioning to home. Precert will be required. CM continues to be available to patient/family and is monitoring medical plan for needs at discharge.
Plan: Discharge to possible SNF. Will need to discuss area SNFs with the patient. Precert will be required.
[2024-11-27 11:58] VITALS: BP 119/78
--- NOTE | 2024-11-27 12:49 | W.PN.ORTHO ---
Today's Communication / Plan
-
69-year-old female postoperative day 1 right hip femoral neck closed reduction and cannulated screw fixation with Dr. Nash
-Weightbearing as tolerated to right lower extremity to assist devices
-PT/OT/discharge planning
-Antibiotics per primary/GEN surg
-DVT PPx: ASA 81 mg twice daily x 30 days unless recommended otherwise per primary
-Diet per primary
-Pain controlled on current regimen
Orthopedic surgical continue to follow
Assessment
.
Distal Motor Intact: Yes
Dressing:
Clean, dry and intact.
Plan
.
Surgery / Date: 11/26/24 R hip fixation w/ Dr. Nash
DVT Prophylaxis: Aspirin
Activity:
Out of bed.
PT/OT
Subjective
.
.:
Patient resting comfortably.
Vital Signs and Labs
.
Vital Signs and Labs:
Lab Results
11/27/24 07:44
11/27/24 07:44
Temp Pulse Resp BP Pulse Ox
98.3 F 76 16 119/78 97
11/27/24 11:58 11/27/24 11:58 11/27/24 11:58 11/27/24 11:58 11/27/24 11:58
[2024-11-27 15:00] VITALS: BP 127/83
[2024-11-27 15:11] VITALS: BP 120/80; PULSE 76
--- NOTE | 2024-11-27 16:43 | W.PN.HOSP.TC ---
Today's Communication/Plan
-
Assessment / Plan
Assessment / Plan
Gen-AAOx3, NAD
HEENT-NC, AT, anicteric, clear oral mm
Neck-supple
CV-reg, no M, +S1/S2
Lungs-clear B/L
Abd-soft, mildly distended, positive bowel sounds
Musculoskeletal-no edema, no deformity
Skin-warm and dry, right lower extremity surgical incisions clean dry intact
Neuro-grossly non-focal
Psych-calm, cooperative
69y F with PMH significant for HTN and priro CVA who presented to ED complaining of R hip pain s/p fall at home this evening.
1. Right Hip Fracture after a Fall at Home - No suspicious prodrome / syncope / etc per patient history. - No evident injury other than R hip fracture.
- Patient is at increased risk for complications due to prior CVA, hyponatremia, etc.
- Address hyponatremia as noted below.
- s/p successful surgery 11/26
-Continue pain control
-Awaiting SNF placement, weightbearing as tolerated
2. Hyponatremia -
-Appears chronic and able, Unclear etiology. Euvolemic on exam.
- No specific culprit medications.
- Na was also low during recent admission (11/21) and is not significantly changed since then.
- Monitor, will need follow-up for ongoing monitoring
3. Pelvic Abscess
- During R femoral hernia repair on 11/21/23, patient was incidentally noted to have R femoral / pelvic area abscess.
- This was incised / drained at that time and drain was placed.
- FRANKY drain removed 11/27
- Completed course of clindamycin
- Culture data from 11/21 all remains negative to date.
-Outpatient follow-up with general surgery in 1 to 2 weeks
4. Benign Hypertension - Stable.
Continue outpatient medications with holding parameters.
5. 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
- Stable. No new focal weakness.
- PT / OT evaluations post-op.
- Continue statin, BP control, etc.
DVT Prophylaxis: SCDs
Code Status: Full
Anticipated Discharge: 24 - 48 hours
Subjective/Interval History
-
Date of Service: November 27, 2024
Patient was seen and examined at bedside this morning. Recovering fairly well from ORIF on right hip 11/26. Has not yet had a bowel movement but is passing gas.
Objective Data
-
Labs:
Laboratory Results
11/27/24
07:44
WBC 9.7
Hgb 11.5 L
Hct 33.3 L
Plt Count 313
Sodium 128 L
Potassium 5.0
Chloride 96 L
Carbon Dioxide 26
BUN 12
Creatinine 0.5 L
Glucose 93
Calcium 8.8
Vital Signs:
Vital Signs
Temp Pulse Resp BP Pulse Ox
98.3 F 76 16 119/78 97
11/27/24 11:58 11/27/24 11:58 11/27/24 11:58 11/27/24 11:58 11/27/24 11:58
I&O
11/26/24 11/27/24 11/28/24
06:59 06:59 06:59
Intake Total 1080 / 1080 960 / 960
Output Total 1210 / 1210
Balance -130 / -130 960 / 960
Review of Systems
-
History Source: Patient
All other systems: Reviewed and negative
Abdomen/GI: Reports Constipated and Bloated
Musculoskeletal: Reports Joint Pain (Right leg pain)
Physical Exam
-
General: No Apparent Distress
[2024-11-27] MEDS: LIPITOR 10 MG PO (17:03)
[2024-11-27 23:10] VITALS: BP 107/66
[2024-11-28 06:09] LABS: Blood Urea Nitrogen 11 mg/dl (7-17); Calcium 9.4 mg/dl (8.4-10.2); Carbon Dioxide 29 mmol/L (22-30); Chloride 94 mmol/L (98-107); Estimated Creatinine Clearance 78 ml/min; Glucose 91 mg/dl (70-99); Potassium 4.7 mmol/L (3.5-5.1); Sodium 130 mmol/L (135-145); eGFR > 60.00
--- NOTE | 2024-11-28 06:33 | W.PN.ORTHO ---
Today's Communication / Plan
-
69-year-old female postoperative day 2 right hip femoral neck closed reduction and cannulated screw fixation with Dr. Nash
-Weightbearing as tolerated to right lower extremity with assist devices
-PT/OT
-Antibiotics per primary/GEN surg
-DVT PPx: ASA 81 mg twice daily x 30 days unless recommended otherwise per primary
-Maintain surgical dressing
-Continue with pain management as needed
-Rachael to be removed at 2 weeks postop. Ok to remove rachael at [facility]. If rachael are removed by facility, follow up outpatient in 4 weeks, otherwise follow up outpatient in 2 weeks
-Case Management consult for discharge planning
-Patient is orthopedically stable postoperatively. Orthopedics will sign off at this time. Please reach out with any questions or concerns
Assessment
.
Distal Motor Intact: Yes
Dressing:
Clean, dry and intact.
Plan
.
Surgery / Date: 11/26/24 R hip fixation w/ Dr. Nash
DVT Prophylaxis: Aspirin
Activity:
Out of bed.
PT/OT
Subjective
.
.:
Patient resting comfortably in bed this morning. She reports that her pain is well controlled. She has been out of bed and has worked with PT
Vital Signs and Labs
.
Vital Signs and Labs:
Lab Results
11/27/24 07:44
11/28/24 05:25
Temp Pulse Resp BP Pulse Ox
98 F 60 16 107/66 98
11/27/24 23:10 11/27/24 23:10 11/27/24 23:10 11/27/24 23:10 11/27/24 23:10
Physical Exam
-
Directed exam of right hip reveals surgical dressing in place. small amount of strikethrough. tenderness to palpation of lateral hip. thigh is soft and compressible. decreased ROM. able to plantarflex/dorsiflex the ankle. wiggles all toes. calf soft
and nonteder. NVI distally
[2024-11-28 07:40] VITALS: BP 120/74
[2024-11-28] MEDS: CARDIZEM CD 240 MG PO (08:32)
[2024-11-28] MEDS: LOW STRENGTH ASPIRIN 81 MG PO ×2 (08:32→20:45)
[2024-11-28] MEDS: TYLENOL 1000 MG PO ×3 (08:32→21:07)
[2024-11-28] MEDS: ZESTRIL 10 MG PO (08:32)
[2024-11-28] MEDS: COLACE 100 MG PO ×2 (08:33→20:45)
[2024-11-28] MEDS: MIRALAX 17 GRAMS PO (08:34)
--- NOTE | 2024-11-28 14:25 | W.DCSUMMARY ---
Addendum entered and electronically signed by Canelo Goodson DO 11/29/24 14:52:
Patient actually transported to SNF 11/29/2024
Original Note:
Discharge Summary
Discharge Data
Date of Admission: 11/26/24
Date of Discharge: 11/28/24
-
Pending Results: No
Hospital Course
Ms. Ojeda is a 69-year-old female with a medical history of hypertension, hemorrhagic CVA, and recent right femoral hernia repair with incidental finding of pelvic abscess who presented from home after a fall in which she fractured her right
hip. She is now status post OR with orthopedics on 11/26 for femoral neck closed reduction and cannulated screw fixation. She tolerated procedure well and is now weightbearing as tolerated to right lower extremity with assistive devices. She is
medically stable for discharge to SNF for ongoing postoperative therapy. Orthopedics recommends rachael to be removed at 2 weeks postoperatively. If rachael are removed by facility then patient can follow-up in the orthopedic clinic in 4 weeks,
otherwise follow-up in the clinic in 2 weeks for staple removal and postoperative evaluation. She should continue taking aspirin 81 mg twice daily for the next 30 days for DVT prophylaxis postoperatively. She should continue taking Tylenol 1 g
p.o. 3 times daily for the next 5 days for postoperative pain control after which she can take only as needed. She will also need to follow-up in the general surgery office for ongoing management of her right femoral hernia repair 11/21 during which
time a pelvic abscess was incidentally found. She initially had a FRANKY drain which was removed on 11/27. She completed a course of antibiotics and cultures remain negative to date. Of note, she has been mildly hyponatremic during her
hospitalization, however this appears chronic and stable. Etiology is unclear. She will need close follow-up with her PCP after hospital discharge.
Gen-AAOx3, NAD
HEENT-NC, AT, anicteric, clear oral mm
Neck-supple
CV-reg, no M, +S1/S2
Lungs-clear B/L
Abd-soft, mildly distended, positive bowel sounds
Musculoskeletal-no edema, no deformity
Skin-warm and dry, right lower extremity surgical incisions clean dry intact
Neuro-grossly non-focal
Psych-calm, cooperative
Discharge Plan
-
Patient Disposition: Penitentiary/SNF
Discharge Diagnosis/Procedures: Right hip fracture following mechanical fall
Diet: No restrictions
Activity: With assistance and As tolerated
Other Services: PT and OT
Activity Restrictions/Additional Instructions:
Ms. Ojeda is a 69-year-old female with a medical history of hypertension, hemorrhagic CVA, and recent right femoral hernia repair with incidental finding of pelvic abscess who presented from home after a fall in which she fractured her right
hip. She is now status post OR with orthopedics on 11/26 for femoral neck closed reduction and cannulated screw fixation. She tolerated procedure well and is now weightbearing as tolerated to right lower extremity with assistive devices. She is
medically stable for discharge to SNF for ongoing postoperative therapy. Orthopedics recommends rachael to be removed at 2 weeks postoperatively. If rachael are removed by facility then patient can follow-up in the orthopedic clinic in 4 weeks,
otherwise follow-up in the clinic in 2 weeks for staple removal and postoperative evaluation. She should continue taking aspirin 81 mg twice daily for the next 30 days for DVT prophylaxis postoperatively. She should continue taking Tylenol 1 g
p.o. 3 times daily for the next 5 days for postoperative pain control after which she can take only as needed. She will also need to follow-up in the general surgery office for ongoing management of her right femoral hernia repair 11/21 during which
time a pelvic abscess was incidentally found. She initially had a FRANKY drain which was removed on 11/27. She completed a course of antibiotics and cultures remain negative to date. Of note, she has been mildly hyponatremic during her
hospitalization, however this appears chronic and stable. Etiology is unclear. She will need close follow-up with her PCP after hospital discharge.
Referrals:
Laureen Rodriguez MD [Family Provider] -
Prescriptions:
New
acetaminophen [Tylenol Extra Strength] 500 mg Tablet
1,000 mg PO TID 5 Days Qty: 30 0RF
aspirin 81 mg Tablet,Chewable
81 mg PO BID 30 Days Qty: 60 0RF
Continued
diltiazem HCl 240 mg Capsule,Extended Release 24 Hr
240 mg PO DAILY
polyethylene glycol 3350 [Miralax] 17 gram Powder In Packet
17 g PO DAILY
lovastatin 10 mg Tablet
10 mg PO HS
cyanocobalamin (vitamin B-12) 500 mcg Tablet
500 mcg PO BID
lisinopril 10 mg Tablet
10 mg PO DAILY
calcium polycarbophil [FiberCon] 625 mg Tablet
625 mg PO DAILY
docusate sodium [Colace] 100 mg Capsule
100 mg PO BID Qty: 0 0RF
Centrum Silver 0.4 mg-300 mcg- 250 mcg Tablet
1 tab PO DAILY
Caltrate 600-D Plus Minerals 600 mg calcium- 800 unit-50 mg Tablet
1 tab PO DAILY
ibuprofen 600 mg tablet
600 mg PO Q6H PRN (Reason: pain) Qty: 14 0RF
Discontinued
acetaminophen [acetaminophen] 325 mg tablet
650 mg PO Q6HPRN PRN (Reason: mild pain) Qty: 14 0RF
clindamycin HCl 300 mg capsule
300 mg PO Q6H 4 Days Qty: 16 0RF
Discharge Orders:
Discharge Patient (As Directed); Ordered 11/28/24
Ordered By: Canelo Goodson
Discharge Date and Time
Print Language: ROMANSH
[2024-11-28 14:35] VITALS: BP 132/85; PULSE 75; O2SAT 98
[2024-11-28 15:17] VITALS: BP 119/74
--- NOTE | 2024-11-28 15:24 | CM ---
Reviewed the chart notes and spoke with the patient and her brother at the bedside. [facility] reviewed. [facility] accepting patient. Clinicals faxed to Jose; auth submitted via [employer]; Pended # [id number].
[facility] NPI# [id number]
Dr. Elias NPI# [id number]
[2024-11-28] MEDS: LIPITOR 10 MG PO (17:17)
[2024-11-28 22:58] VITALS: BP 110/76
[2024-11-29 07:40] VITALS: BP 117/81
[2024-11-29] MEDS: LOW STRENGTH ASPIRIN 81 MG PO (08:41)
[2024-11-29] MEDS: TYLENOL 1000 MG PO ×2 (08:41→16:17)
[2024-11-29] MEDS: CARDIZEM CD 240 MG PO (08:41)
[2024-11-29] MEDS: COLACE 100 MG PO (08:41)
[2024-11-29] MEDS: ZESTRIL 10 MG PO (08:41)
[2024-11-29] MEDS: MIRALAX 17 GRAMS PO (08:42)
--- NOTE | 2024-11-29 09:08 | CM ---
Addendum entered by Loree Klein 11/29/24 15:13:
All insurance information given to oSrin at [facility]
Addendum entered by Loree Klein 11/29/24 14:37:
tt rec from Dr. Wild - APPROVED FOR [facility]
Notified Sorin from [facility]
Brother to transport patient
Addendum entered by Loree Klein 11/29/24 11:02:
Call received from [facility] - Went to medical staff specialist review & denied.
Peer to Peer #: [phone], until 4:30pm today - tt our medical laboratory specialist Dr. Wild
will await Peer to Peer determination.
Original Note:
CM checked [employer] site for insurance auth for [facility] - auth still pending
Pended # [id number].
tt hospitalist
PLAN: [facility], once auth approved
Report #: [phone]
Fax #: [phone]
[2024-11-29 09:45] VITALS: BP 132/89; PULSE 84; O2SAT 98
--- NOTE | 2024-11-29 14:46 | CM ---
Received call from Ann Garcia ([phone]); denial has been over turned; approved until NRD 12/04/2024; Call clinical review to: [phone]; Fax clinicals: [phone]. Auth # [id number]
[2024-11-29 15:39] VITALS: BP 111/74
== END 2024-11-29 16:45 | DRG 481 ==
LOC: 2 SOUTH 03:14
PROVIDERS: Internal Medicine; Nurse Practitioner Gerontology; Physician Assistant; ADMITTING PHYSICIAN Hospitalist; ATTENDING PHYSICIAN Internal Medicine; CONSULT PHYSICIAN Orthopaedic Surgery; CONSULT PHYSICIAN Surgery; EMERGENCY PHYSICIAN Student in an Organized Health Care Education/Training Program; FAMILY PHYSICIAN Internal Medicine
PROC: 0QS634Z Reposition Right Upper Femur with Internal Fixation Device, Percutaneous Approach (ICD-10-PCS; 2024-11-26)
DX: S72.011A Unspecified intracapsular fracture of right femur, initial encounter for closed fracture (principal); E87.1 Hypo-osmolality and hyponatremia; I69.351 Hemiplegia and hemiparesis following cerebral infarction affecting right dominant side; W01.0XXA Fall on same level from slipping, tripping and stumbling without subsequent striking against object, initial encounter; I10 Essential (primary) hypertension; Z87.891 Personal history of nicotine dependence; Z88.1 Allergy status to other antibiotic agents; Z88.0 Allergy status to penicillin; Z79.899 Other long term (current) drug therapy; E78.00 Pure hypercholesterolemia, unspecified; K59.00 Constipation, unspecified; N73.9 Female pelvic inflammatory disease, unspecified
CPT/HCPCS: 73502; 76000; 80048; 80053; 83935; 84300; 85025; 85027; 97163; 97166; 97530; 97535; 99285

== ENCOUNTER → 2025-01-12 10:34 | Outpatient (REF) | payer OTHER, SELFPAY | LOC: RAD 10:34 | PROVIDERS: ATTENDING PHYSICIAN Podiatrist Foot & Ankle Surgery; FAMILY PHYSICIAN Internal Medicine | DX: M20.41 Other hammer toe(s) (acquired), right foot (principal); L97.512 Non-pressure chronic ulcer of other part of right foot with fat layer exposed; L03.031 Cellulitis of right toe | CPT/HCPCS: 73630 ==

== ENCOUNTER → 2025-02-08 06:19 | Day surgery (SDC) | payer OTHER, SELFPAY ==
[2025-02-08 12:30] VITALS: BMI 18.4
[2025-02-08 12:35] VITALS: BP 125/85
[2025-02-08] MEDS: NORMOSOL-R/PLASMALYTE-A 1000 IV (12:40)
[2025-02-08 12:49] VITALS: BMI 18.4
[2025-02-08] MEDS: TYLENOL 1000 MG PO (12:56)
[2025-02-08] MEDS: NEURONTIN 100 MG PO (12:57)
[2025-02-08] MEDS: EMEND 40 MG PO (12:58)
[2025-02-08 13:11] LABS: Blood Urea Nitrogen 15 mg/dl (7-17); Calcium 9.8 mg/dl (8.4-10.2); Carbon Dioxide 28 mmol/L (22-30); Chloride 92 mmol/L (98-107); Estimated Creatinine Clearance 71 ml/min; Glucose 75 mg/dl (70-99); Potassium 4.3 mmol/L (3.5-5.1); Sodium 127 mmol/L (135-145); eGFR > 60.00
--- NOTE | 2025-02-08 15:07 | W.PN.UPDATE ---
Update Note
Progress Note Update
Though the patient's hyponatremia has been relatively stable since October there was a slight change from her preoperative labs in September 2024. Anesthesia felt more comfortable to have this worked up prior to surgery soaked the case was canceled.
Patient and brother understandably upset but understood. We will help to make arrangements for workup of her hyponatremia.
== END ==
LOC: SDS 06:19
PROVIDERS: Anesthesiology; ATTENDING PHYSICIAN Surgery
DX: K43.2 Incisional hernia without obstruction or gangrene (principal); Z53.9 Procedure and treatment not carried out, unspecified reason
CPT/HCPCS: 49591; 80048

== ENCOUNTER 2025-04-18 08:21 | Inpatient (IN) | payer OTHER, SELFPAY ==
[2025-04-17] VITALS (15 sets, daily range): BP systolic 112–133; BP diastolic 70–86; BMI 21.1
[2025-04-17] MEDS: TYLENOL 1000 MG PO (11:33)
[2025-04-17] MEDS: NEURONTIN 100 MG PO (11:33)
[2025-04-17] MEDS: NORMOSOL-R/PLASMALYTE-A 1000 IV (11:34)
[2025-04-17] MEDS: HEPARIN 5000 UNITS SC (11:34)
--- NOTE | 2025-04-17 11:34 | HP.FOC2 ---
Focused History & Physical
Chief Complaint
HPI:
Chief Complaint: Incisional hernia
HPI / Indication for Planned Procedure: This is a 69-year-old female who presents with a symptomatic incisional hernia. Will plan for an open incisional hernia repair with mesh, possible component separation. Of note she did fall yesterday and hit
her head but she did not lose consciousness. She does have a a stable bruise on her right anterior occiput.
Relevant Past Medical History: Negative
Relevant Social History: Negative
Relevant Family History: Negative
Relevant Past Surgical History: Positive for (Incarcerated femoral hernia repair, small bowel resection. Robotic femoral hernia repair.)
Review of Systems
Review of Pertinent Systems: All Systems Negative
Medication
See Medication form for detailed medications: Yes
Medication List (including Herbals & OTC):
calcium polycarbophil 625 mg tablet (FiberCon) 625 mg PO DAILY Gastrointestinal Issue 09/18/24
cyanocobalamin (vitamin B-12) 500 mcg tablet 500 mcg PO BID Supplement 09/18/24
diltiazem HCl 240 mg capsule,24 hr,extended release 240 mg PO DAILY Arrhythmia 09/18/24
lisinopril 10 mg tablet 10 mg PO DAILY Blood Pressure 09/18/24
lovastatin 10 mg tablet 10 mg PO HS High Cholesterol 09/18/24
polyethylene glycol 3350 17 gram oral powder packet (Miralax) 17 g PO BID Constipation 09/18/24
docusate sodium 100 mg capsule (Colace) 100 mg PO BID Constipation #0 caps 09/26/24
calcium 600 mg-D3 800 unit-mag11 50 uy-fksr-dshqwn-inna-s.borat tablet (Caltrate 600-D Plus Minerals) 1 tab PO DAILY Supplement 11/14/24
awhgrmbl-jpq-tanhi acid 0.4 mg-lycopene 300 mcg-lutein 250 mcg tablet (Centrum Silver) 1 tab PO DAILY Supplement 11/14/24
aspirin 81 mg chewable tablet 81 mg PO DAILY 02/01/25
furosemide 20 mg tablet (Lasix) 20 mg PO DAILY 04/13/25
Medications Reviewed: Yes
Allergies and Reactions
Patient has Allergies: Yes
Noted Allergies and Reactions:
Allergy/AdvReac Type Severity Reaction Status Date / Time
Cephalosporins Allergy Unknown Verified 04/17/25 11:14
penicillin V Allergy Unknown Verified 04/17/25 11:14
Penicillins Allergy Unknown Verified 04/17/25 11:14
Pertinent Physical Exam
All Other Systems: Negative
Head/Neck: Normal
Diagnosis / Assessment
his is a 69-year-old female who presents with a symptomatic incisional hernia.
Plan / Procedure
Will plan for an open incisional hernia repair with mesh, possible component separation.
Anesthesia/Sedation to be done by Anesthesia Provider: Yes
--- NOTE | 2025-04-17 14:23 | W.IMMPOSTOP ---
Surgical Immed Post Op Note
-
Primary Surgeon: Mehul Fletcher MD
Assisting Surgeon: None
Pre-op Diagnosis: Incisional hernia
Post-op Diagnosis: Same
Procedure Performed: Open incisional hernia repair with mesh (Mcclure-Stoppa)
Anesthesia Type: General
Specimen / Cultures: None
Estimated Blood Loss: 7 cc
Complications: None
Operative Findings: 3 cm round supraumbilical incisional defect with a 1 cm umbilical defect for total defect dimensions of 3 cm wide by 5 cm long. The retrorectus space was developed bilaterally and then reinforced with a 12 x 8 cm wide piece of
Bard soft uncoated polypropylene mesh. No drain placed.
POST OP PLAN:
Imaging: None
Labs: Routine AM
Diet: Advance to Regular as tolerated
Analgesia: Tylenol 650mg q6 Mary Beth, Molly 5mg q6 PRN, Dilaudid 0.5mg q2h PRN
Neuro/vascular checks: q4h
AC/AP: Hold Therapeutic AC, Ok for DVT PPx
Activity: Ad Mindy
Wound/Incisions/Drains: Routine
Abx: None
Dispo: RNF, anticipate discharge home tomorrow.
--- NOTE | 2025-04-17 14:37 | OR.RPT ---
Operative Report
Operative Report
Patient Name: Lizy Ojeda
: 1955
Date of Operation: 04/17/2025
Preoperative Diagnosis: Incisional ventral hernia
Postoperative Diagnosis: Same
Procedure(s):
Open ventral hernia hernia repair with mesh (Cristina-Stoppa)
Surgeon(s):
Dr. Fletcher
Materials Director(s):
FRANSICO Green
Anesthesia: General
Estimated Blood Loss: 7 cc
Urine Output: None
Drains/Lines/Implants: None
Specimens: None
Indication for surgery:
The patient has a periumbilical incisional hernia from a prior incarcerated femoral hernia with small bowel resection surgery. After review of their therapeutic options, as well as a discussion of risk benefits and alternatives they elected to
pursue an open repair.
Operative Findings: 3 cm round supraumbilical incisional defect with a 1 cm umbilical defect for total defect dimensions of 3 cm wide by 5 cm long. The retrorectus space was developed bilaterally and then reinforced with a 12 x 8 cm wide piece of
Bard soft uncoated polypropylene mesh. No drain placed.
Details of the operation:
After successful induction of general anesthesia and placement of an endotracheal tube, the patient was clipped, prepped and draped in the supine position. A team timeout was performed confirming administration of DVT prophylaxis, IV antibiotics and
SCDs. Her previous midline incision was marked and incised. The abdomen was entered safely, no adhesions were noted. We began by entering the retrorectus space on the patient's left and carrying this both cephalad and caudad. This was repeated
on the contralateral side. In addition to the 3 cm incisional hernia, there was an additional 1 cm umbilical hernia inferiorly that was joint together making the total dimensions of the hernia defect 3 cm wide by 5 cm long. The posterior rectus
sheaths were then joined superiorly and inferiorly then closed together with 0 Vicryl suture anchored at each apex and run towards the middle and tied together. Hemostasis was then achieved in the retrorectus space and measured to be roughly 12 cm
long by 8 cm wide. A corresponding piece of Bard soft uncoated polypropylene mesh was then cut to size and placed in the field flat. No anchoring sutures were used. The true anterior sheath/fascia was identified and run together using 0 PDS
suture anchored at each apex and run towards the middle. The excess hernia sac was removed. The umbilical stalk was anchored down to the fascia and then 3-0 Vicryl subdermal interrupted sutures were placed to line up the epidermis. A running 4-0
Monocryl followed by Dermabond was then used to close the defect. There were no intraoperative or immediate complications. The patient was awakened from general anesthesia and extubated and transferred to the recovery room, having tolerated the
procedure well.
Nano was the attending physician and performed the procedure with assistance of the PA above. The assistance of FRANSICO Green was required due to the complexity of the procedure. During the procedure Nicole assisted with retraction, resection, and
closure of the wound. I was present for all portions of the case, excluding skin closure.
Mehul Fletcher MD
[2025-04-17] MEDS: TYLENOL PO (16:45)
[2025-04-17] MEDS: MIRALAX 17 GRAMS PO (19:40)
[2025-04-17] MEDS: TYLENOL 650 MG PO ×2 (19:41→22:51)
[2025-04-17] MEDS: COLACE 100 MG PO (19:41)
[2025-04-18] VITALS (7 sets, daily range): BP systolic 107–144; BP diastolic 64–94; PULSE 77–78; O2SAT 98
[2025-04-18] MEDS: TYLENOL 650 MG PO ×6 (04:04→23:35)
[2025-04-18] MEDS: MOTRIN 400 MG PO ×3 (04:08→20:26)
[2025-04-18 06:52] LABS: Hematocrit 30.3 % (37.0-47.0); Hemoglobin 10.5 g/dL (12.0-16.0); Mean Corp Hgb Conc. 34.7 g/dL (33.0-37.0); Mean Corpuscular Volume 97.4 fL (81.0-99.0); Platelet Count 263 10^3/uL (130-400); Red Cell Dist. Width 12.6 % (11.5-14.5)
[2025-04-18 07:21] LABS: Blood Urea Nitrogen 18 mg/dl (7-17); Calcium 8.9 mg/dl (8.4-10.2); Carbon Dioxide 25 mmol/L (22-30); Chloride 102 mmol/L (98-107); Estimated Creatinine Clearance 74 ml/min; Glucose 88 mg/dl (70-99); Potassium 4.8 mmol/L (3.5-5.1); Sodium 131 mmol/L (135-145); eGFR > 60.00
--- NOTE | 2025-04-18 08:18 | W.PN.GS2 ---
Today's Communication / Plan
-
Out of bed and ambulate
Pain control
Assessment / Plan
-
This is a 69-year-old female with known chronic hyponatremia and history of a small bowel resection for an incarcerated femoral hernia status post definitive repair who developed an incisional hernia now postoperative day 1 from an open retrorectus
incisional hernia repair with mesh. Doing well, expected postoperative course.
Will adjust pain meds, patient has not been taking morphine
Regular diet
Out of bed and ambulate as able. This has been limited due to pain, will get PT OT.
Will trend labs.
Time Spent
Total Time Spent with Patient (in minutes): 20
Subjective Data
-
Date of Service: April 18, 2025
Interval Events:
No acute events overnight. Slept okay. Pain out of 5 currently but was fairly well-controlled overnight. Denies Nausea/Vomiting, +bowel function. Tolerating diet.
Objective Data
-
Intake and Output
04/17/25 04/18/25 04/19/25
06:59 06:59 06:59
Output Total 275 / 275
Balance -275 / -275
Output:
Urine, Voided 275 / 275
Other:
Number of approximated MODERATE 1
amounts of urine
Number of approximated LARGE 1
amounts of urine
Vital Signs
Temp Pulse Resp BP Pulse Ox
98.6 F 71 14 107/64 97
04/18/25 07:05 04/18/25 07:05 04/18/25 07:05 04/18/25 07:05 04/18/25 07:05
Lab Results
04/18/25 06:04
04/18/25 06:05
Calcium 8.9 mg/dl (8.4-10.2) 04/18/25 06:05
Physical Exam
-
GENERAL/NEURO: Awake, Alert, no distress
CHEST: Unlabored breathing on RA
ABDOMEN: Soft, nondistended, appropriately tender, incision clean dry and intact. Crepitus noted
Patient has a castillo catheter: No
Patient has a central line: No
[2025-04-18] MEDS: CARDIZEM CD 240 MG PO (10:30)
[2025-04-18] MEDS: HEPARIN 5000 UNITS SC ×2 (10:31→20:24)
[2025-04-18] MEDS: COLACE 100 MG PO ×2 (10:31→20:24)
[2025-04-18] MEDS: MIRALAX 17 GRAMS PO ×2 (10:31→20:25)
--- NOTE | 2025-04-18 16:15 | CM ---
alumni relations manager reviewed patient's chart and spoke with patient's brother Jl and plan is for skilled placement at [facility], [facility], patient was living with her brother in a 2 story home, patient required assist with
adl's and ambulation, patient has been falling in home. alumni relations manager spoke with Sorin and Nora and they will have a bed for patient tomorrow if stable, case management director contacted patient's insurance for Auth.
Plan; Skilled placement at [facility] per admissions at [facility] they will have a bed for patient tomorrow.
[2025-04-19] MEDS: TYLENOL PO (04:45)
[2025-04-19 07:05] VITALS: BP 117/80
[2025-04-19 07:58] LABS: Hematocrit 33.3 % (37.0-47.0); Hemoglobin 11.4 g/dL (12.0-16.0); Mean Corp Hgb Conc. 34.2 g/dL (33.0-37.0); Mean Corpuscular Volume 98.5 fL (81.0-99.0); Nucleated Red Blood Cells % 0 %; Platelet Count 280 10^3/uL (130-400); Red Cell Dist. Width 12.7 % (11.5-14.5)
[2025-04-19 08:16] LABS: Blood Urea Nitrogen 21 mg/dl (7-17); Calcium 9.0 mg/dl (8.4-10.2); Carbon Dioxide 29 mmol/L (22-30); Chloride 100 mmol/L (98-107); Estimated Creatinine Clearance 63 ml/min; Glucose 79 mg/dl (70-99); Potassium 4.4 mmol/L (3.5-5.1); Sodium 131 mmol/L (135-145); eGFR > 60.00
[2025-04-19] MEDS: TYLENOL 650 MG PO (08:51)
[2025-04-19] MEDS: HEPARIN 5000 UNITS SC (08:56)
[2025-04-19] MEDS: CARDIZEM CD 240 MG PO (08:56)
[2025-04-19] MEDS: MIRALAX 17 GRAMS PO (08:56)
[2025-04-19] MEDS: COLACE 100 MG PO (08:56)
--- NOTE | 2025-04-19 09:11 | W.PN.GS2 ---
Today's Communication / Plan
-
d/c planning
Assessment / Plan
-
Assessment: 69-year-old female with known chronic hyponatremia and history of a small bowel resection for an incarcerated femoral hernia status post definitive repair who developed an incisional hernia
POD #2 open retrorectus incisional hernia repair with mesh.
AFVSS
Doing well, expected postoperative course.
Plan: Appears stable for discharge to [facility] today.
Subjective Data
-
Date of Service: April 19, 2025
Patient seen and examined. Postoperative pain remained stable. Adequately controlled.
Tolerating dietary intake
She is started to pass flatus, no BM yet
Objective Data
-
Intake and Output
04/18/25 04/19/25 04/20/25
06:59 06:59 06:59
Intake Total 960 / 960
Output Total 275 / 275
Balance -275 / -275 960 / 960
Intake:
Oral fluids 960 / 960
Output:
Urine, Voided 275 / 275
Other:
Number of approximated SMALL 1
amounts of urine
Number of approximated MODERATE 1 1 1
amounts of urine
Number of approximated LARGE 1 1
amounts of urine
How many times incontinent 1
SMALL amount urine
Vital Signs
Temp Pulse Resp BP Pulse Ox
98 F 70 16 117/80 96
04/19/25 07:05 04/19/25 07:05 04/19/25 07:05 04/19/25 07:05 04/19/25 07:05
Lab Results
04/19/25 06:49
04/19/25 06:49
Calcium 9.0 mg/dl (8.4-10.2) 04/19/25 06:49
Physical Exam
-
NAD, AAO x 3
ABD: Softly protuberant but not distended. Mild incisional tenderness. Incision with glue dressing
--- NOTE | 2025-04-19 09:16 | W.DS.TRANS ---
DC Summary - Director Clinical Research
-
Discharge Instructions:
Sleep Apnea Risk Low
Discharge Diagnosis/Procedures Incisional hernia. Open incisional hernia
repair with mesh.
Diet No restrictions
Activity No strenuous activity
Driving Restrictions As prior to admission
Bathing Restrictions OK to Shower
Instructions:
Stand-Alone Forms:
Changes to Home Medications: No
Discharge Medications:
DC Medications w/original date entered in [employer]
calcium polycarbophil 625 mg tablet (FiberCon) 625 mg PO DAILY Gastrointestinal Issue 09/18/24
cyanocobalamin (vitamin B-12) 500 mcg tablet 500 mcg PO BID Supplement 09/18/24
diltiazem HCl 240 mg capsule,24 hr,extended release 240 mg PO DAILY Arrhythmia 09/18/24
lisinopril 10 mg tablet 10 mg PO DAILY Blood Pressure 09/18/24
lovastatin 10 mg tablet 10 mg PO HS High Cholesterol 09/18/24
polyethylene glycol 3350 17 gram oral powder packet (Miralax) 17 g PO BID Constipation 09/18/24
docusate sodium 100 mg capsule (Colace) 100 mg PO BID Constipation #0 caps 09/26/24
calcium 600 mg-D3 800 unit-mag11 50 xj-zfpl-nubheh-inna-s.borat tablet (Caltrate 600-D Plus Minerals) 1 tab PO DAILY Supplement 11/14/24
raipdrnc-kkz-gtyzb acid 0.4 mg-lycopene 300 mcg-lutein 250 mcg tablet (Centrum Silver) 1 tab PO DAILY Supplement 11/14/24
aspirin 81 mg chewable tablet 81 mg PO DAILY Blood Clot Prevention/Tx 02/01/25
furosemide 20 mg tablet (Lasix) 20 mg PO DAILY Fluid Retention/Swelling 04/13/25
acetaminophen 500 mg tablet (Tylenol Extra Strength) 1,000 mg (2 x 500 mg) PO Q6HPRN PRN mild pain #1 tab 04/19/25
ibuprofen 200 mg tablet 400 mg (2 x 200 mg) PO Q6HPRN PRN moderate pain #1 tab 04/19/25
oxycodone 5 mg tablet 5 mg PO Q4HPRN PRN breakthrough/severe pain #5 tabs 04/19/25
Home Medication Changes
Pending Results: No
[2025-04-19] MEDS: MOTRIN 400 MG PO (09:38)
--- NOTE | 2025-04-19 10:13 | CM ---
CM following re: discharge planning.
Reviewed pt's chart, met with pt nd pt's brother Moses at bedside.
Discharge order noted. Both pt and her brother Moses SIMPSON are aware, expressed their agreement with discharge and pt's brother stated he will transport the pt. IM Niko reviewed, placed on chart, pt has a copy.
An auth from [employer] for SNF level of care at [facility] obtained. Pt is approved for 7 initial days for SNF level of care at [facility] from today 04/19/25 till 04/25/25 with LCD and NRD 04/25/25. Auth: [id number]. For review fax: [phone].
CM spoke to [facility] recreation program coordinator Sorin and she confirmed that pt is accepted for admission today. Auth information forwarded to [facility] recreation program coordinator Sorin.
[facility] nursing report: [phone]
Discharge instructions fax: [phone]
D.C plan: [facility] SNF. Brother Moses to transport.
== END 2025-04-19 11:27 | DRG 355 ==
LOC: 2 SOUTH 08:21
PROVIDERS: ADMITTING PHYSICIAN Surgery
PROC: 0WUF0JZ Supplement Abdominal Wall with Synthetic Substitute, Open Approach (ICD-10-PCS; 2025-04-17)
DX: K43.2 Incisional hernia without obstruction or gangrene (principal); K42.9 Umbilical hernia without obstruction or gangrene; W19.XXXA Unspecified fall, initial encounter; Y93.9 Activity, unspecified; Y92.9 Unspecified place or not applicable; Z60.2 Problems related to living alone; Z88.0 Allergy status to penicillin; Z88.1 Allergy status to other antibiotic agents
CPT/HCPCS: 80048; 85025; 85027; 97163; 97167; C1781

== ENCOUNTER → 2025-04-25 12:15 | Outpatient (REF) | payer OTHER, MEDICARE, SELFPAY ==
[2025-04-25 13:03] LABS: Hematocrit 34.2 % (37.0-47.0); Hemoglobin 11.6 g/dL (12.0-16.0); Mean Corp Hgb Conc. 33.9 g/dL (33.0-37.0); Mean Corpuscular Volume 99.4 fL (81.0-99.0); Nucleated Red Blood Cells % 0 %; Platelet Count 322 10^3/uL (130-400); Red Cell Dist. Width 12.7 % (11.5-14.5)
[2025-04-25 13:08] LABS: Blood Urea Nitrogen 12 mg/dl (7-17); Calcium 9.3 mg/dl (8.4-10.2); Carbon Dioxide 29 mmol/L (22-30); Chloride 97 mmol/L (98-107); Glucose 76 mg/dl (70-99); HDL Cholesterol 71 mg/dl; LDL Cholesterol, Calculated 82 mg/dl; Magnesium 1.9 mg/dl (1.6-2.3); Potassium 4.5 mmol/L (3.5-5.1); Sodium 130 mmol/L (135-145); Very Low Density Lipoprotein 13 mg/dl (0-30); eGFR > 60.00
[2025-04-25 13:25] LABS: Vitamin D, 25-OH*** 69.8 ng/mL (30-80)
[2025-04-25 13:58] LABS: Vitamin B12 > 1000 pg/ml (239-931)
== END ==
LOC: OLABN 12:15
PROVIDERS: ATTENDING PHYSICIAN Student in an Organized Health Care Education/Training Program
DX: I10 Essential (primary) hypertension (principal); E87.8 Other disorders of electrolyte and fluid balance, not elsewhere classified; E78.5 Hyperlipidemia, unspecified; E53.8 Deficiency of other specified B group vitamins; E55.9 Vitamin D deficiency, unspecified
CPT/HCPCS: 36415; 80048; 80061; 82306; 82607; 83735; 85025

== ENCOUNTER → 2025-05-03 14:14 | Outpatient (REF) | payer MEDICARE, OTHER, SELFPAY | LOC: RAD 14:14 | PROVIDERS: ATTENDING PHYSICIAN Student in an Organized Health Care Education/Training Program | DX: M79.674 Pain in right toe(s) (principal) | CPT/HCPCS: 93922; 93925 ==

== ENCOUNTER → 2025-05-07 12:00 | Outpatient (REF) | payer MEDICARE, OTHER, SELFPAY ==
[2025-05-07 13:25] LABS: Blood Urea Nitrogen 11 mg/dl (7-17); Calcium 9.2 mg/dl (8.4-10.2); Carbon Dioxide 30 mmol/L (22-30); Chloride 95 mmol/L (98-107); Glucose 72 mg/dl (70-99); Potassium 4.9 mmol/L (3.5-5.1); Sodium 127 mmol/L (135-145); eGFR > 60.00
== END ==
LOC: OLABN 12:00
PROVIDERS: ATTENDING PHYSICIAN Student in an Organized Health Care Education/Training Program
DX: E78.5 Hyperlipidemia, unspecified (principal)
CPT/HCPCS: 36415; 80048

== ENCOUNTER → 2025-05-11 10:27 | Outpatient (REF) | payer MEDICARE, OTHER, SELFPAY ==
[2025-05-11 11:06] LABS: Blood Urea Nitrogen 16 mg/dl (7-17); Calcium 9.2 mg/dl (8.4-10.2); Carbon Dioxide 29 mmol/L (22-30); Chloride 95 mmol/L (98-107); Glucose 78 mg/dl (70-99); Potassium 4.6 mmol/L (3.5-5.1); Sodium 127 mmol/L (135-145); eGFR > 60.00
== END ==
LOC: OLABN 10:27
PROVIDERS: ATTENDING PHYSICIAN Student in an Organized Health Care Education/Training Program
DX: E87.1 Hypo-osmolality and hyponatremia (principal)
CPT/HCPCS: 36415; 80048

== ENCOUNTER → 2025-05-12 19:04 | Outpatient (REF) | payer MEDICARE, OTHER, SELFPAY ==
[2025-05-12 19:37] LABS: Urine Character Clear (Clear); Urine Red Blood Cell 0-2 /HPF (0-2); Urine White Cell 16-20 /HPF (0-5)
== END ==
LOC: OLABN 19:04
PROVIDERS: ATTENDING PHYSICIAN Student in an Organized Health Care Education/Training Program
DX: E87.1 Hypo-osmolality and hyponatremia (principal)
CPT/HCPCS: 81003; 81015; 83935; 84300

== ENCOUNTER → 2025-05-14 11:06 | Outpatient (REF) | payer MEDICARE, OTHER, SELFPAY ==
[2025-05-14 12:02] LABS: Blood Urea Nitrogen 14 mg/dl (7-17); Calcium 8.9 mg/dl (8.4-10.2); Carbon Dioxide 27 mmol/L (22-30); Chloride 97 mmol/L (98-107); Glucose 70 mg/dl (70-99); Potassium 4.4 mmol/L (3.5-5.1); Sodium 127 mmol/L (135-145); eGFR > 60.00
[2025-05-14 12:27] LABS: TSH 0.74 uIU/ml (0.47-4.68)
== END ==
LOC: OLABN 11:06
PROVIDERS: ATTENDING PHYSICIAN Student in an Organized Health Care Education/Training Program
DX: E87.1 Hypo-osmolality and hyponatremia (principal); E87.8 Other disorders of electrolyte and fluid balance, not elsewhere classified
CPT/HCPCS: 36415; 80048; 84443

== ENCOUNTER → 2025-05-18 10:22 | Outpatient (REF) | payer MEDICARE, OTHER, SELFPAY ==
[2025-05-18 11:21] LABS: Blood Urea Nitrogen 16 mg/dl (7-17); Calcium 8.9 mg/dl (8.4-10.2); Carbon Dioxide 28 mmol/L (22-30); Chloride 99 mmol/L (98-107); Glucose 77 mg/dl (70-99); Potassium 4.6 mmol/L (3.5-5.1); Sodium 132 mmol/L (135-145); eGFR > 60.00
== END ==
LOC: OLABN 10:22
PROVIDERS: ATTENDING PHYSICIAN Student in an Organized Health Care Education/Training Program
DX: E87.8 Other disorders of electrolyte and fluid balance, not elsewhere classified (principal)
CPT/HCPCS: 36415; 80048

== ENCOUNTER → 2025-05-24 09:31 | Outpatient (REF) | payer MEDICARE, OTHER, SELFPAY ==
[2025-05-24 10:23] LABS: ALT (SGPT) 12 U/L (0-35); AST (SGOT) 19 U/L (14-36); Albumin 3.8 g/dl (3.5-5.0); Alkaline Phosphatase 45 U/L (38-126); Blood Urea Nitrogen 19 mg/dl (7-17); Calcium 8.9 mg/dl (8.4-10.2); Carbon Dioxide 27 mmol/L (22-30); Chloride 97 mmol/L (98-107); Glucose 68 mg/dl (70-99); Potassium 4.6 mmol/L (3.5-5.1); Sodium 129 mmol/L (135-145); Total Protein 6.1 g/dl (6.3-8.2); eGFR > 60.00
== END ==
LOC: OLABN 09:31
PROVIDERS: ATTENDING PHYSICIAN Student in an Organized Health Care Education/Training Program
DX: E87.8 Other disorders of electrolyte and fluid balance, not elsewhere classified (principal)
CPT/HCPCS: 36415; 80053

== ENCOUNTER → 2025-05-31 10:57 | Outpatient (REF) | payer MEDICARE, OTHER, SELFPAY ==
[2025-05-31 13:24] LABS: Blood Urea Nitrogen 20 mg/dl (7-17); Calcium 9.0 mg/dl (8.4-10.2); Carbon Dioxide 32 mmol/L (22-30); Chloride 98 mmol/L (98-107); Glucose 86 mg/dl (70-99); Potassium 5.1 mmol/L (3.5-5.1); Sodium 132 mmol/L (135-145); eGFR > 60.00
== END ==
LOC: OLABN 10:57
PROVIDERS: ATTENDING PHYSICIAN Student in an Organized Health Care Education/Training Program
DX: E87.1 Hypo-osmolality and hyponatremia (principal)
CPT/HCPCS: 36415; 80048

== ENCOUNTER → 2025-07-16 09:35 | Outpatient (REF) | payer MEDICARE, OTHER, SELFPAY ==
[2025-07-16 10:56] LABS: Hematocrit 32.9 % (37.0-47.0); Hemoglobin 11.3 g/dL (12.0-16.0); Mean Corp Hgb Conc. 34.3 g/dL (33.0-37.0); Mean Corpuscular Volume 97.9 fL (81.0-99.0); Platelet Count 296 10^3/uL (130-400); Red Cell Dist. Width 11.9 % (11.5-14.5)
[2025-07-16 11:15] LABS: Blood Urea Nitrogen 15 mg/dl (7-17); Calcium 8.9 mg/dl (8.4-10.2); Carbon Dioxide 30 mmol/L (22-30); Chloride 100 mmol/L (98-107); Glucose 82 mg/dl (70-99); Magnesium 1.5 mg/dl (1.6-2.3); Potassium 4.0 mmol/L (3.5-5.1); Sodium 135 mmol/L (135-145); eGFR > 60.00
== END ==
LOC: OLABN 09:35
PROVIDERS: ATTENDING PHYSICIAN Student in an Organized Health Care Education/Training Program
DX: E87.1 Hypo-osmolality and hyponatremia (principal); I10 Essential (primary) hypertension
CPT/HCPCS: 36415; 80048; 83735; 83880; 85027